=== PATIENT | female | born 1980 | race Two or more races ===

== ENCOUNTER 2023-02-17 14:53 | Emergency (ER) | payer MEDICARE, MEDICAID ==
[~2023-02-17] VITALS: Ht 162.6 cm; Wt 92.7 kg
[2023-02-17 15:46] LABS: Basophils # (auto) 0.1 10 ^3/uL (0-0.2); Basophils % (auto) 0.9 % (0.0-2.0); Eosinophils # (auto) 0.1 10 ^3/uL (0-0.8); Eosinophils % (auto) 1.8 % (0.0-7.0); Hematocrit 28.7 % (36.0-46.0); Hemoglobin 9.6 g/dL (12.2-16.2); Lymphocytes # (auto) 1.1 10 ^3/uL (0.4-5.4); Lymphocytes % (auto) 15.1 % (10.0-50.0); Mean Corpuscular Hemoglobin 30.6 pg (28.0-32.0); Mean Corpuscular Hgb Conc. 33.3 g/dL (32.0-36.0); Mean Corpuscular Volume 92.1 fL (80.0-100.0); Monocytes # (auto) 0.7 10 ^3/uL (0-1.3); Monocytes % (auto) 9.1 % (0.0-12.0); Neutrophils # (auto) 5.3 10 ^3/uL (1.6-8.6); Neutrophils % (auto) 73.1 % (37.0-80.0); Nucleated Red Blood Cells % 0.1 %; Red Blood Cells 3.12 10^6/uL (4.0-5.20); Red Cell Distribution Width 14.7 % (11.8-14.3); White Blood Cell 7.2 10^3/uL (4.4-10.8)
[2023-02-17 16:22] LABS: Albumin 3.4 g/dL (3.4-5.0); BUN/Creatinine Ratio 6.6 (10.0-20.0); Calcium 8.1 mg/dL (8.5-10.1); Potassium 4.2 mmol/L (3.5-5.1)
[2023-02-17 16:25] LABS: Bilirubin, Total 0.5 mg/dL (0.2-1.0); Total Protein 7.8 g/dL (6.4-8.2)
[2023-02-17 20:00] VITALS: BP 152/92
[2023-02-17] MEDS ORDERED: HYDROcodone-ACET 5/325MG TAB PO ONE (20:15)
== END 2023-02-17 20:26 | disposition home or self-care (01) ==
LOC: EDBD 14:53 → ER 14:53
DX: G40.909 Epilepsy, unspecified, not intractable, without status epilepticus (principal); I12.0 Hypertensive chronic kidney disease with stage 5 chronic kidney disease or end stage renal disease; N18.6 End stage renal disease; Z99.2 Dependence on renal dialysis; Z86.73 Personal history of transient ischemic attack (TIA), and cerebral infarction without residual deficits; Z98.890 Other specified postprocedural states; Z98.51 Tubal ligation status
CPT/HCPCS: 36415; 70450; 80053; 83735; 84484; 85025; 93005; 96374; 99285; J1953; J7060

== ENCOUNTER 2025-03-30 18:59 | Inpatient (IN) | payer OTHER, MEDICAID ==
[~2025-03-30] VITALS: Ht 162.6 cm; Wt 95.5 kg
[~2025-03-30 18:59] MED LIST: ALBUAER3 IN; ASPI81CH59 PO; CALC667C PO; CLON0.1D13 TD; HYDR-4902 PO; HYDR100T10 PO; LORA-1121 PO; MIDO10TA3 PO; SILD30SU PO
--- NOTE | 2025-03-30 19:11 | ED.PDOC ---
History of Present Illness HPI Comments 44-year-old female came to ER via EMS for rashes. Patient has history of hypertension, congestive heart failure, CVA, ESRD on dialysis every Thursday. Patient was at the dialysis center earlier, when nurses noted a rash at her lower abdominal area. Patient was sent here to rule out cellulitis. States rashes started this morning. Denies any fever. Chief Complaint: Rash Time Seen by MD: 19:10 Primary Care Provider: SHIRLENE Reviewed Notes: Oil Field Laborer Notes Allergies: Coded Allergies: Methylprednisolone (Verified Allergy, Unknown, 04/16/23) Home Meds Active Scripts Clindamycin Hcl (Cleocin) 300 Mg Cap, 300 MG PO TID for 5 Days, #15 CAP Prov:CHRISTELLE VILLANUEVA MD 04/03/25 Albuterol Sulfate (VENTOLIN MDI) 90 Mcg Ih, 90 MCG IN Q4HR PRN, #1 INH Prov:ENEDINA FRY MD 03/10/24 Midodrine Hcl (Midodrine Hcl) 10 Mg Tab, 10 MG PO BID, #60 TAB Prov:ENEDINA FRY MD 03/10/24 Sildenafil Citrate (Pulmonary (Revatio) 10 Mg/Ml Arielle, 20 MG PO DAILY, #60 ML Prov:ENEDINA FRY MD 03/10/24 Lorazepam (ATIVAN TABLET) 0.5 Mg Tb, 1 TAB PO DAILY, #30 TAB Prov:ENEDINA FRY MD 03/10/24 Reported Medications Clonidine Hcl ([id number]-0 PATCH) 0.1 Mg/24 Hr Ph, 0.1 MG TD PRN for SBP>150, PATCH 02/29/24 Aspirin (Aspirin Low Dose) 81 Mg Chw, 81 MG PO DAILY, TAB.CHEW 02/29/24 Hydralazine Hcl (Hydralazine Hcl) 100 Mg Tab, 1 TAB PO DAILY, #90 TAB 5 Refills 05/30/22 Calcium Acetate (Phosphate Bin (Calcium Acetate) 667 Mg Cap, 1334 MG PO TIDWM, MG 05/30/22 Hydrocodone-Acetaminophen (Hydrocodone Bitartrate/AC 5-325 mg) 1 Tab Tab, 1 TAB PO BIDPRN PRN for PAIN 03/19/22 Information Source: Patient, Emergency Med Personnel Mode of Arrival: EMS Severity: Moderate Timing: Hours Duration: Since onset Review of Systems REVIEW OF SYSTEMS: No fever, no chills, or fatigue HEENT: No sore throat, no earache, no congestion, no neck pain. Cardiac: No chest pain. No palpitations. Lungs: No shortness of breath, no cough. GI: No nausea, no vomiting, no diarrhea, no constipation, no abdominal pain : No dysuria, frequency, or urgency. No hematuria. Musculoskeletal: No joint pain , no joint swelling, no extremity edema. Skin: (+) rash, no itching. Neuro: No headache, no dizziness, no weakness Vital Signs Vital Signs Date Time Temp Pulse Resp B/P (MAP) Pulse Ox O2 Delivery O2 Flow Rate FiO2 03/30/25 23:01 64 18 95 Room Air 03/30/25 23: 97.8 119/62 (81) 97.8 Physical Exam General: Awake, alert and oriented. No acute distress. Skin: Lower abdominal wall warm, erythematous with skin irritation. No palpable abscess or draining lesion. HEENT: The head is normocephalic and atraumatic. Conjunctivae are clear without exudates or hemorrhage. Sclera is non-icteric. EOM are intact. No signs of nystagmus. Eyelids are normal in appearance without swelling or lesions. Oral mucosa is pink and moist Neck: The neck is supple with normal range of motion. No JVD. Cardiac: Heart rate and rhythm are normal. No murmurs, gallops, or rubs are au scultated. Respiratory: No signs of respiratory distress. Lung sounds are clear in all lobes bilaterally without rales, rhonchi, or wheezes. Abdominal: Abdomen is soft, non-tender without distention. Bowel sounds are present and normoactive in all four quadrants. Extremities: Upper and lower extremities are atraumatic in appearance without deformity or edema. Neurological: The patient is awake, alert and oriented to person, place, and time with normal speech. Speech is clear. There is no facial asymmetry. Psychiatric: Appropriate mood and affect. Good judgement and insight. No visual or auditory hallucinations. Past Medical History PAST MEDICAL HISTORY: CHF, CVA, ESRD, HTN, Liver, Seizures Surgical History: BTL, Surgical History (Other): Dialysis every Thursday STORE DIRECTOR History: Denies all STORE DIRECTOR Hx Family History Family History: Reviewed,noncontributory to illness Social History Smoker: Non-Smoker Alcohol: Denies ETOH Use Drugs: Denies Drug Use Lives In: Home Was a procedure done? Was a procedure done?: No Differential Dx Considerations may include: Anemia, electrolyte imbalance, congestive heart failure, end-stage renal disease, cellulitis, rash, sepsis, bacteremia, other X-Ray, Labs, Meds, VS Vital Signs Date Time Temp Pulse Resp B/P (MAP) Pulse Ox O2 Delivery O2 Flow Rate FiO2 03/30/25 23:01 64 18 95 Room Air 03/30/25 23:01 97.8 64 18 119/62 (81) 95 97.8 03/30/25 19:04 99.5 70 16 122/71 (88) 95 99.5 Lab Test 03/30/25 19:55 03/30/25 19:22 Range/Units POC Glucose 112 H 70-106 mg/dl White Blood Count 10.4 4.4-10.8 10^3/uL Red Blood Count 4.16 4.0-5.20 10^6/uL Hemoglobin 11.9 L 12.2-16.2 g/dL Hematocrit 36.2 36.0-46.0 % Mean Corpuscular Volume 87.0 80.0-100.0 fL Mean Corpuscular Hemoglobin 28.6 28.0-32.0 pg Mean Corpuscular Hemoglobin Concent 32.9 32.0-36.0 g/dL Red Cell Distribution Width 17.8 H 11.8-14.3 % Platelet Count 147 140-450 10^3/uL Mean Platelet Volume 8.3 6.9-10.8 fL Neutrophils (%) (Auto) 89.5 H 37.0-80.0 % Lymphocytes (%) (Auto) 4.7 L 10.0-50.0 % Monocytes (%) (Auto) 5.5 0.0-12.0 % Eosinophils (%) (Auto) 0.2 0.0-7.0 % Basophils (%) (Auto) 0.1 0.0-2.0 % Neutrophils # (Auto) 9.4 H 1.6-8.6 10 ^3/uL Lymphocytes # (Auto) 0.5 0.4-5.4 10 ^3/uL Monocytes # (Auto) 0.6 0-1.3 10 ^3/uL Eosinophils # (Auto) 0 0-0.8 10 ^3/uL Basophils # (Auto) 0 0-0.2 10 ^3/uL Nucleated Red Blood Cells 0.0 % Sodium Level 141 136-145 mmol/L Potassium Level 3.7 3.5-5.1 mmol/L Chloride Level 100 98-107 mmol/L Carbon Dioxide Level 28 20-31 mmol/L Anion Gap 13 5-15 Blood Urea Nitrogen 28 H 9-23 mg/dL Creatinine 4.89 H 0.550-1.02 mg/dL Glomerular Filtration Rate Calc 11 >90 mL/min BUN/Creatinine Ratio 5.7 L 10.0-20.0 Serum Glucose 119 H 74-106 mg/dL Lactic Acid Level 2.0 0.4-2.0 mmol/L Calcium Level 7.7 L 8.7-10.4 mg/dL Total Bilirubin 0.5 0.2-1.0 mg/dL Aspartate Amino Transferase (AST) 23 0-34 U/L Alanine Aminotransferase (ALT) 11 7-40 U/L Alkaline Phosphatase 149 H 46-116 U/L Total Protein 6.1 5.7-8.2 g/dL Albumin 3.7 3.2-4.8 g/dL Microbiology Date/Time Source Procedure Growth Status 03/30/25 19:22 Blood Blood Culture - Final NO GROWTH AFTER 5 DAYS OF INCUBATION. Complete 03/30/25 19:10 Blood Blood Culture - Final NO GROWTH AFTER 5 DAYS OF INCUBATION. Complete Time of 1ST Reevaluation: 19:06 Reevaluation 1ST: Unchanged Patient Education/Counseling: Other (Need for admission) Family Education/Counseling: No Family Present Sepsis Sepsis Reasesment Focused Exam Orders: Laboratory Tests 03/30/25 19:22: Lactic Acid Level 2.0 Departure 1 Departure Time of Disposition: 20:04 Impression: Primary Impression: Cellulitis Additional Impressions: End stage renal disease on dialysis Liver cirrhosis History of CHF (congestive heart failure) Disposition: ADMITTED INPATIENT Condition: Stable e-Prescriptions Clindamycin Hcl (Cleocin) 300 Mg Cap 300 MG PO TID for 5 Days, #15 CAP Prov: CHRISTELLE VILLANUEVA MD 04/03/25 Comments 44-year-old female with a immunocompromise state secondary to cirrhosis and end- stage renal disease on dialysis. We will admit for IV antibiotics for treatment of cellulitis. Extensive evaluation was performed in attempt to identify or rule out: (See differential diagnosis section) The following tests were ordered, and results were reviewed by me and discussed with patient: (See diagnostic results section) The following test were independently interpreted by me: EKG I reviewed and agreed with the following test results read by other providers: N/A I reviewed the following notes from the pt's past medical encounters: Encounter 2023 for CHF Additional information was gathered from interviewing the following independent historians: EMS personnel Discussion of management or test interpretation with external physician/other qualified health resident care provider: N/A Addressed one or more chronic illnesses with severe exacerbation, progression, or side effects of treatment: Liver cirrhosis, end-stage renal disease on dialysis an acute or chronic illness that poses a threat to life or bodily function: Cellulitis Decision regarding hospitalization or escalation of hospital level of care: Risk and benefits of admission for further treatment of patient's condition was considered. Due to patient's current clinical condition, high risk of decline and poor outcome if discharged and need for further inpatient management and monitoring, patient will be admitted to the hospital. Discussed with patient. Drug therapy requiring intensive monitoring for toxicity: N/A Parenteral controlled substances: N/A Decision regarding elective major surgery with identified patient or procedure risk factors: N/A Decision regarding emergency major surgery: N/A Decision not to resuscitate or to de-escalate care because of poor prognosis: N/A Diagnosis or treatment significantly limited by social determinants of health: N/A Critical Care Note Critical Care Time?: No Stability Stability form required: No Heart Score Heart Score: Heart Score Response (Comments) Value History N/A 0 EKG N/A 0 Age N/A 0 Risk Factors N/A 0 Troponin N/A 0 Total 0 I personally scribed for PHUC ARITA MD ([email or web address]) on 03/30/25 at 19:10. Electronically submitted by Dandre Chacon ([email or web address]). PHUC ARITA MD Mar 30, 2025 19:10
[2025-03-30 19:37] LABS: Basophils # (auto) 0 10 ^3/uL (0-0.2); Basophils % (auto) 0.1 % (0.0-2.0); Eosinophils # (auto) 0 10 ^3/uL (0-0.8); Eosinophils % (auto) 0.2 % (0.0-7.0); Hematocrit 36.2 % (36.0-46.0); Hemoglobin 11.9 g/dL (12.2-16.2); Lymphocytes # (auto) 0.5 10 ^3/uL (0.4-5.4); Lymphocytes % (auto) 4.7 % (10.0-50.0); Mean Corpuscular Hemoglobin 28.6 pg (28.0-32.0); Mean Corpuscular Hgb Conc. 32.9 g/dL (32.0-36.0); Monocytes # (auto) 0.6 10 ^3/uL (0-1.3); Monocytes % (auto) 5.5 % (0.0-12.0); Neutrophils # (auto) 9.4 10 ^3/uL (1.6-8.6); Neutrophils % (auto) 89.5 % (37.0-80.0); Platelet Count (auto) 147 10^3/uL (140-450); Red Blood Cells 4.16 10^6/uL (4.0-5.20); Red Cell Distribution Width 17.8 % (11.8-14.3); White Blood Cell 10.4 10^3/uL (4.4-10.8)
[2025-03-30 19:55] LABS: Alanine Aminotransferase 11 U/L (7-40); Albumin 3.7 g/dL (3.2-4.8); Anion Gap 13 (5-15); Aspartate Aminotransferase 23 U/L (0-34); BUN/Creatinine Ratio 5.7 (10.0-20.0); Bilirubin, Total 0.5 mg/dL (0.2-1.0); Carbon Dioxide 28 mmol/L (20-31); Chloride 100 mmol/L (98-107); Potassium 3.7 mmol/L (3.5-5.1); Sodium 141 mmol/L (136-145); Total Protein 6.1 g/dL (5.7-8.2)
[2025-03-30 20:07] LABS: Alkaline Phosphatase 149 U/L (46-116); Blood Urea Nitrogen 28 mg/dL (9-23); Calcium 7.7 mg/dL (8.7-10.4); Glucose 119 mg/dL (74-106)
[2025-03-30] MEDS ORDERED: DOCUSATE SOD 100 MG CAP PO PRN (22:45)
[2025-03-30] MEDS ORDERED: VANCOMYCIN PER PHARMACY 0 MG IV SCH (22:45)
[2025-03-30] MEDS ORDERED: IBUPROFEN 600 MG TAB PO PRN (22:45)
[2025-03-30] MEDS ORDERED: hydrALAZINE HCL 20 MG/ML VL IV PRN (22:45)
[2025-03-30] MEDS ORDERED: LORazepam 2MG/ML-1ML VIAL IV PRN (22:45)
[2025-03-30] MEDS ORDERED: ONDANSETRON HCL 4 MG/2 ML VIAL IV PRN (22:45)
--- NOTE | 2025-03-30 23:47 | DVHHP2 ---
History of Present Illness Reason for Visit: End stage renal disease on dialysis History of Present Illness The patient is a 44-year-old female with past medical history end-stage renal disease on hemodialysis Thursday and Saturdays, CHF, CVA, hypertension, liver disease, and seizures who presented to [facility] ED for evaluation of abdominal wall rashes. Patient was at the dialysis center earlier, when nurses noted a rash at her lower abdominal area and was sent here to ED rule out cellulitis. Patient was seen and evaluated in the ED, laboratory data shows WBC 10.4, platelets 147, sodium 141, potassium 3.7, BUN 28, creatinine 4.89, glucose 119, calcium 7.7, blood pressure 122/71, heart rate 70, temperature 99.5 F, O2 saturation 96% on room air. Patient was started on IV antibiotic regimen vancomycin, given IV calcium replacement, please see medication orders section in the computer. On my assessment, patient denied chest pain, no headache, no dizziness, no shortness of breaths, no nausea, no vomiting, no fever, no chills. Patient was admitted for further evaluation and medical management. Past Medical History CHF, CVA, ESRD, HTN, Liver, Seizures Past Surgical History BTL, , Dialysis access LUE every Thursday Family History Reviewed, noncontributory to the management of this case. Past Social History The patient lives at home, denies smoking, alcohol or illicit drugs abuse. Review of Systems Constitutional: Yes: Weakness; No: Fever, Chills, Sweats, Malaise, Other Eyes: No: Pain, Vision change, Conjunctivae inflammation, Eyelid inflammation, Other, Redness ENT: No: Ear pain, Ear discharge, Nose pain, Nose discharge, Nose congestion, Mouth pain, Mouth swelling, Throat pain, Throat swelling, Other Respiratory: No: Cough, Dry, Shortness of breath, SOB with excertion, Wheezing, Hemoptysis, Pleuritic Pain, Sputum, Wheezing, Other Cardiovascular: No: Chest Pain, Palpitations, Orthopnea, Paroxysmal Noc. Dyspnea, Edema, Lt Headedness, Other Gastrointestinal: No: Nausea, Vomiting, Abdominal Pain, Diarrhea, Constipation, Melena, Hematochezia, Other Genitourinary: No Dysuria, No Frequency, No Incontinence, No Hematuria, No Retention; Other (Left upper extremity AV shunt) Musculoskeletal: No: other, neck pain, shoulder pain, arm pain, back pain, hand pain, leg pain, foot pain Skin: Rash (Lower abdominal wall); No: Lesions, Jaundice, Bruising, Other Neurological: No: Weakness, Numbness, Incoordination, Change in speech, Confusion, Seizures, Other Allergies: Coded Allergies: Methylprednisolone (Verified Allergy, Unknown, 04/16/23) Medications Current Medications Medications Dose Ordered Sig/Elidia Route Start Time Stop Time Status Last Admin Dose Admin Hydralazine HCl 10 mg Q6HP PRN IV 03/30/25 22:45 Aspirin 81 mg DAILY PO 03/31/25 10:00 Lorazepam 0.5 mg Q8HP PRN IV 03/30/25 22:45 Metoprolol Tartrate 12.5 mg BID PO 03/31/25 10:00 Multivit/Ca Carb/ B Cmplx/FA/Prenat 1 tab DAILY PO 03/31/25 10:00 Sevelamer HCl 800 mg TIDWM PO 03/31/25 08:00 Calcium Acetate 667 mg TIDWMEALS PO 03/31/25 08:00 Vancomycin HCl 0 ml @ 0 mls/hr UD IV 03/30/25 22:45 UNV Sodium Chloride 10 ml Q8HR IV 03/31/25 06:00 Acetaminophen/ Hydrocodone Bitart 1 tab Q4HP PRN PO 03/30/25 22:45 Ondansetron HCl 4 mg Q4HP PRN IV 03/30/25 22:45 Docusate Sodium 100 mg BIDPRN PRN PO 03/30/25 22:45 Ibuprofen 600 mg Q6HP PRN PO 03/30/25 22:45 Exam Vital Signs Vital Signs Date Time Temp Pulse Resp B/P (MAP) Pulse Ox O2 Delivery O2 Flow Rate FiO2 03/30/25 23:01 64 18 95 Room Air 03/30/25 23:01 97.8 119/62 (81) 97.8 General Appearance: Alert, Oriented X3, Cooperative, No acute distress HEENT: Atraumatic, PERRLA, EOMI, Mucous membr. moist/pink Respiratory: Normal air movement Cardiovascular: Regular rate, Normal S1, Normal S2, No murmurs Abdominal: Normal bowel sounds, Soft, No tenderness, No hepatospenomegaly, No masses Extremities: No clubbing, No cyanosis, No edema, Normal pulses, No tenderness/ swelling Skin: No rashes, No breakdown, No significant lesion Neuro: Normal speech, Normal tone, Sensation intact, Cranial nerves 3-12 NL, Reflexes 2+, Other (Generalized weakness) Psych/Mental Status: Mental status NL, Mood NL Labs/Xrays Labs Test 03/30/25 19:55 03/30/25 19:22 Range/Units POC Glucose 112 H 70-106 mg/dl White Blood Count 10.4 4.4-10.8 10^3/uL Red Blood Count 4.16 4.0-5.20 10^6/uL Hemoglobin 11.9 L 12.2-16.2 g/dL Hematocrit 36.2 36.0-46.0 % Mean Corpuscular Volume 87.0 80.0-100.0 fL Mean Corpuscular Hemoglobin 28.6 28.0-32.0 pg Mean Corpuscular Hemoglobin Concent 32.9 32.0-36.0 g/dL Red Cell Distribution Width 17.8 H 11.8-14.3 % Platelet Count 147 140-450 10^3/uL Mean Platelet Volume 8.3 6.9-10.8 fL Neutrophils (%) (Auto) 89.5 H 37.0-80.0 % Lymphocytes (%) (Auto) 4.7 L 10.0-50.0 % Monocytes (%) (Auto) 5.5 0.0-12.0 % Eosinophils (%) (Auto) 0.2 0.0-7.0 % Basophils (%) (Auto) 0.1 0.0-2.0 % Neutrophils # (Auto) 9.4 H 1.6-8.6 10 ^3/uL Lymphocytes # (Auto) 0.5 0.4-5.4 10 ^3/uL Monocytes # (Auto) 0.6 0-1.3 10 ^3/uL Eosinophils # (Auto) 0 0-0.8 10 ^3/uL Basophils # (Auto) 0 0-0.2 10 ^3/uL Nucleated Red Blood Cells 0.0 % Sodium Level 141 136-145 mmol/L Potassium Level 3.7 3.5-5.1 mmol/L Chloride Level 100 98-107 mmol/L Carbon Dioxide Level 28 20-31 mmol/L Anion Gap 13 5-15 Blood Urea Nitrogen 28 H 9-23 mg/dL Creatinine 4.89 H 0.550-1.02 mg/dL Glomerular Filtration Rate Calc 11 >90 mL/min BUN/Creatinine Ratio 5.7 L 10.0-20.0 Serum Glucose 119 H 74-106 mg/dL Lactic Acid Level 2.0 0.4-2.0 mmol/L Calcium Level 7.7 L 8.7-10.4 mg/dL Total Bilirubin 0.5 0.2-1.0 mg/dL Aspartate Amino Transferase (AST) 23 0-34 U/L Alanine Aminotransferase (ALT) 11 7-40 U/L Alkaline Phosphatase 149 H 46-116 U/L Total Protein 6.1 5.7-8.2 g/dL Albumin 3.7 3.2-4.8 g/dL Assessment/Plan Assessment/Plan Cellulitis of abdominal wall Liver cirrhosis Hypocalcemia Generalized weakness End stage renal disease on dialysis Plan 1. Admit to telemetry unit 2. Breathing treatment 3. Pain control management 4. IV antibiotic management 5. Management of fluids and electrolytes 6. Consultation for Nephrology 7. Diagnostic test chest x-ray 8. DVT prophylaxis-on aspirin 9. Repeat labs CBC, CMP in a.m. 10. Home medication reviewed and reconciled 11. Continue with current medical management 12. Treatment plan discussed with patient and RN. Patient verbalized understanding. Plan discussed with: Patient, Other (RN) My Orders Orders - LEANDRA MCDONALD DNP Procedure Category Date Status Time Hydralazine Injection PHA 03/30/25 In Process (Apresoline Inject 22:45 Aspirin Tablet PHA 03/31/25 In Process 10:00 Lorazepam 2mg/Ml Inj PHA 03/30/25 In Process (Ativan Inj) 22:45 Metoprolol Tartrate PHA 03/31/25 In Process Tablet (Lopressor Ta 10:00 B-Complex W/ C & PHA 03/31/25 In Process Folic Tablet 10:00 Sevelamer (Renagel) PHA 03/31/25 In Process 08:00 Calcium Acetate PHA 03/31/25 In Process Capsule (Phoslo 08:00 Vancomycin Per PHA 03/30/25 Pending Pharmacy 22:45 *[facility] CONS 03/30/25 Transmitted [place] 22:44 Allergies АЛЕКСАНДР 03/30/25 In Process 22:44 Code Status CODE 03/30/25 Transmitted 22:44 Renal DIET 03/31/25 Transmitted Standard(2gna,3gk,Lopho) Breakfast Sodium Chloride Lock PHA 03/31/25 In Process (Saline Lock Ns) 06:00 Oxygen Per Hour RT 03/30/25 Transmitted 22:44 Hydrocodone-Acet PHA 03/30/25 In Process 5/325mg Tab ([place] 22:45 Ondansetron Hcl PHA 03/30/25 In Process (Zofran) 22:45 Docusate Sodium PHA 03/30/25 In Process Capsule (Colace 22:45 Complete Blood Count LAB 03/31/25 Verified 04:00 Comprehensive LAB 03/31/25 Verified Metabolic Panel 04:00 Condition: Serious АЛЕКСАНДР 03/30/25 In Process 22:44 Bedrest With Bathroom АЛЕКСАНДР 03/30/25 In Process Privileg 22:44 Sequential АЛЕКСАНДР 03/30/25 In Process Compression Device Ibuprofen Tablet PHA 03/30/25 In Process (Motrin Tablet) 22:45 Admit ADMIT 03/30/25 Transmitted 23:46 Nitroglycerin PHA 03/31/25 Transmitted Sublingual (Ntrostat 00:00 Morphine Sulfate PHA 03/31/25 Transmitted Injection 00:00 Notify Md Of Changes АЛЕКСАНДР 03/30/25 Transmitted From Base 23:46 Business Support Professional For [facility] 03/30/25 Transmitted 24 Hours 23:46 Emergency Dysrhythmia [facility] 03/30/25 Transmitted Protocol 23:46 Rhythm Strips Once [facility] 03/30/25 Transmitted Every Shift 23:46 Oxygen By Nasal RT 03/30/25 Transmitted Cannula 23:46 Problem List: (1) Cellulitis of abdominal wall (2) Liver cirrhosis (3) Hypocalcemia (4) Generalized weakness (5) End-stage renal disease on hemodialysis Date of Service: Mar 30, 2025 Billing Provider: LEANDRA MCDONALD DNP Common Visit Codes: 58248-[id number] INP/OBS CARE (HIGH) LEANDRA MCDONALD DNP Mar 30, 2025 23:47
[2025-03-31] VITALS (9 sets, daily range): BP systolic 105–119; BP diastolic 52–72; PULSE 57–65; RESP 17–20; TEMP 97.1–98.5; O2SAT 95–97
[2025-03-31] MEDS ORDERED: MORPHINE SULFATE INJ 2 MG/ml SYRG IV PRN
[2025-03-31] MEDS ORDERED: NITROGLYCERIN 0.4 MG SL TAB SL PRN
[2025-03-31] MEDS: SODIUM CHLOR 0.9% PF (SALINE LOCK) 10ML VIAL/SYR IV SCH (05:08)
[2025-03-31 07:20] LABS: Basophils # (auto) 0 10 ^3/uL (0-0.2); Eosinophils # (auto) 0 10 ^3/uL (0-0.8); Eosinophils % (auto) 0.3 % (0.0-7.0); Hematocrit 33.6 % (36.0-46.0); Hemoglobin 11.3 g/dL (12.2-16.2); Lymphocytes # (auto) 0.7 10 ^3/uL (0.4-5.4); Lymphocytes % (auto) 8.7 % (10.0-50.0); Mean Corpuscular Hemoglobin 29.4 pg (28.0-32.0); Mean Corpuscular Hgb Conc. 33.8 g/dL (32.0-36.0); Mean Corpuscular Volume 87.1 fL (80.0-100.0); Monocytes # (auto) 0.6 10 ^3/uL (0-1.3); Monocytes % (auto) 7.1 % (0.0-12.0); Neutrophils # (auto) 6.8 10 ^3/uL (1.6-8.6); Neutrophils % (auto) 83.9 % (37.0-80.0); Nucleated Red Blood Cells % 0.1 %; Platelet Count (auto) 149 10^3/uL (140-450); Red Blood Cells 3.86 10^6/uL (4.0-5.20); Red Cell Distribution Width 17.8 % (11.8-14.3); White Blood Cell 8.1 10^3/uL (4.4-10.8)
[2025-03-31 07:34] LABS: Albumin 3.5 g/dL (3.2-4.8); Anion Gap 14 (5-15); Aspartate Aminotransferase 18 U/L (<34); BUN/Creatinine Ratio 5.6 (10.0-20.0); Carbon Dioxide 28 mmol/L (20-31); Glucose 85 mg/dL (74-106); Potassium 3.7 mmol/L (3.5-5.1); Sodium 139 mmol/L (136-145); Total Protein 6.1 g/dL (5.7-8.2)
[2025-03-31 07:35] LABS: Bilirubin, Total 0.4 mg/dL (0.2-1.0)
[2025-03-31 07:37] LABS: Alanine Aminotransferase < 9 U/L (7-40); Alkaline Phosphatase 136 U/L (46-116); Blood Urea Nitrogen 32 mg/dL (9-23); Calcium 7.1 mg/dL (8.7-10.4); Chloride 97 mmol/L (98-107)
[2025-03-31] MEDS: B-COMPLEX W/ C & FOLIC ACID(NEPHROVITE TAB) PO SCH (08:50)
[2025-03-31] MEDS: SEVELAMER 800 MG TAB PO SCH (08:50)
[2025-03-31] MEDS: ASPirin 81 mg TAB PO SCH (08:50)
[2025-03-31] MEDS: CALCIUM ACETATE 667 MG CAP PO SCH (08:51)
[2025-03-31] MEDS: METOPROLOL TARTRATE 25 MG TAB PO SCH (08:51)
--- NOTE | 2025-03-31 10:43 | DVHINCON2 ---
Date of service: Mar 31, 2025 Reason for Consultation End-stage renal disease History of Present Illness 44-year-old female with past medical history of end-stage renal disease for hemodialysis patient receives hemodialysis on Saturdays. Patient presented to the hospital sent from dialysis unit due to abdominal cellulitis. Patient recently had a paracentesis due to ascites. Past Medical History End-stage renal disease Hypertension Cirrhosis Allergies: Coded Allergies: Methylprednisolone (Verified Allergy, Unknown, 04/16/23) Home Meds Active Scripts Albuterol Sulfate (VENTOLIN MDI) 90 Mcg Ih, 90 MCG IN Q4HR PRN, #1 INH Prov:ENEDINA FRY MD 03/10/24 Midodrine Hcl (Midodrine Hcl) 10 Mg Tab, 10 MG PO BID, #60 TAB Prov:ENEDINA FRY MD 03/10/24 Sildenafil Citrate (Pulmonary (Revatio) 10 Mg/Ml Arielle, 20 MG PO DAILY, #60 ML Prov:ENEDINA FRY MD 03/10/24 Lorazepam (ATIVAN TABLET) 0.5 Mg Tb, 1 TAB PO DAILY, #30 TAB Prov:ENEDINA FRY MD 03/10/24 Reported Medications Clonidine Hcl ([id number]-MIU-4 PATCH) 0.1 Mg/24 Hr Ph, 0.1 MG TD PRN for SBP>150, PATCH 02/29/24 Aspirin (Aspirin Low Dose) 81 Mg Chw, 81 MG PO DAILY, TAB.CHEW 02/29/24 Hydralazine Hcl (Hydralazine Hcl) 100 Mg Tab, 1 TAB PO DAILY, #90 TAB 5 Refills 05/30/22 Calcium Acetate (Phosphate Bin (Calcium Acetate) 667 Mg Cap, 1334 MG PO TIDWM, MG 05/30/22 Hydrocodone-Acetaminophen (Hydrocodone Bitartrate/AC 5-325 mg) 1 Tab Tab, 1 TAB PO BIDPRN PRN for PAIN 03/19/22 Current Medications Current Medications Medications (Trade) Dose Ordered Sig/Elidia Route PRN Reason Start Time Stop Time Status Last Admin Hydralazine HCl (Apresoline Injection) 10 mg Q6HP PRN IV SBP>150 03/30/25 22:45 Aspirin 81 mg DAILY PO 03/31/25 10:00 03/31/25 08:50 Lorazepam (Ativan Inj) 0.5 mg Q8HP PRN IV ANXIETY 03/30/25 22:45 Metoprolol Tartrate (Lopressor Tablet) 12.5 mg BID PO 03/31/25 10:00 03/31/25 08:51 Multivit/Ca Carb/ B Cmplx/FA/Prenat (Nephro-Myah Tablet) 1 tab DAILY PO 03/31/25 10:00 03/31/25 08:50 Sevelamer HCl (Renagel) 800 mg TIDWM PO 03/31/25 08:00 03/31/25 08:50 Calcium Acetate (Phoslo Capsule) 667 mg TIDWMEALS PO 03/31/25 08:00 03/31/25 08:51 Vancomycin HCl 0 ml @ 0 mls/hr UD IV 03/30/25 22:45 Sodium Chloride (Saline Lock Ns) 10 ml Q8HR IV 03/31/25 06:00 03/31/25 05:08 Acetaminophen/ Hydrocodone Bitart (Index 5/325MG Tab) 1 tab Q4HP PRN PO MODERATE PAIN (4-6 PAIN SCALE) 03/30/25 22:45 Ondansetron HCl (Zofran) 4 mg Q4HP PRN IV NAUSEA / VOMITING 03/30/25 22:45 Docusate Sodium (Colace Capsule) 100 mg BIDPRN PRN PO FOR CONSTIPATION 03/30/25 22:45 Ibuprofen (Motrin Tablet) 600 mg Q6HP PRN PO PAIN SCALE 1-3 OR TEMP>100.4 03/30/25 22:45 Nitroglycerin (Ntrostat Sublingual) 0.4 mg Q5MINP PRN SL FOR CHEST PAIN 03/31/25 00:00 Morphine Sulfate 2 mg Q30M PRN IV FOR CHEST PAIN 03/31/25 00:00 Family History: FH: breast cancer Grandmother H&P Exam Vital Signs/I&O Vital Sign Date Time Temp Pulse Resp B/P (MAP) Pulse Ox O2 Delivery O2 Flow Rate FiO2 03/31/25 09:08 98.4 58 17 116/65 (82) 96 98.4 03/31/25 01:38 Room Air* 0 21 Intake and Output 03/30/25 03/31/25 19:00 07:00 Intake Total 800 ml Balance 800 ml Intake Oral 800 ml # Voids 1 Labs/Diagnostic Data Labs/Diagnostic Data Laboratory Tests Test 03/31/25 04:12 03/30/25 19:55 03/30/25 19:22 Range/Units White Blood Count 8.1 10.4 4.4-10.8 10^3/uL Red Blood Count 3.86 L 4.16 4.0-5.20 10^6/uL Hemoglobin 11.3 L 11.9 L 12.2-16.2 g/dL Hematocrit 33.6 L 36.2 36.0-46.0 % Mean Corpuscular Volume 87.1 87.0 80.0-100.0 fL Mean Corpuscular Hemoglobin 29.4 28.6 28.0-32.0 pg Mean Corpuscular Hemoglobin Concent 33.8 32.9 32.0-36.0 g/dL Red Cell Distribution Width 17.8 H 17.8 H 11.8-14.3 % Platelet Count 149 147 140-450 10^3/uL Mean Platelet Volume 8.8 8.3 6.9-10.8 fL Neutrophils (%) (Auto) 83.9 H 89.5 H 37.0-80.0 % Lymphocytes (%) (Auto) 8.7 L 4.7 L 10.0-50.0 % Monocytes (%) (Auto) 7.1 5.5 0.0-12.0 % Eosinophils (%) (Auto) 0.3 0.2 0.0-7.0 % Basophils (%) (Auto) 0.0 0.1 0.0-2.0 % Neutrophils # (Auto) 6.8 9.4 H 1.6-8.6 10 ^3/uL Lymphocytes # (Auto) 0.7 0.5 0.4-5.4 10 ^3/uL Monocytes # (Auto) 0.6 0.6 0-1.3 10 ^3/uL Eosinophils # (Auto) 0 0 0-0.8 10 ^3/uL Basophils # (Auto) 0 0 0-0.2 10 ^3/uL Nucleated Red Blood Cells 0.1 0.0 % Sodium Level 139 141 136-145 mmol/L Potassium Level 3.7 3.7 3.5-5.1 mmol/L Chloride Level 97 L 100 98-107 mmol/L Carbon Dioxide Level 28 28 20-31 mmol/L Anion Gap 14 13 5-15 Blood Urea Nitrogen 32 H 28 H 9-23 mg/dL Creatinine 5.75 H 4.89 H 0.550-1.02 mg/dL Glomerular Filtration Rate Calc 9 11 >90 mL/min BUN/Creatinine Ratio 5.6 L 5.7 L 10.0-20.0 Serum Glucose 85 119 H 74-106 mg/dL Calcium Level 7.1 L 7.7 L 8.7-10.4 mg/dL Total Bilirubin 0.4 0.5 0.2-1.0 mg/dL Aspartate Amino Transferase (AST) 18 23 0-34 U/L Alanine Aminotransferase (ALT) < 9 11 7-40 U/L Alkaline Phosphatase 136 H 149 H 46-116 U/L B-Type Natriuretic Peptide 815.78 0-100 pg/mL Total Protein 6.1 6.1 5.7-8.2 g/dL Albumin 3.5 3.7 3.2-4.8 g/dL POC Glucose 112 H 70-106 mg/dl Lactic Acid Level 2.0 0.4-2.0 mmol/L Assessment 44-year-old female with past medical history of end-stage renal disease on hemodialysis, and cirrhosis patient was sent to the hospital due to abdominal cellulitis. End-stage renal disease on hemodialysis Cellulitis Ascites Hemodialysis as per schedule next treatment on Thursday Resume home medications Treatment of cellulitis as per primary medical team , currently on vancomycin recommend regularly scheduled trough levels Plan discussed with: Patient JESSIE ZAYAS MD Mar 31, 2025 10:43
[2025-03-31] MEDS: VANCOMYCIN 1.25GM/250ML 250 ML IV ONE (11:01)
--- NOTE | 2025-03-31 16:35 | DVHPN2 ---
Subjective 44 year old female with ESRD on HD came due to swelling and pain in the lower abdomen She had dialysis yesterday Changes from previous H/P or p: Changes Eyes: No Pain, No Vision change, No Conjunctivae inflammation, No Eyelid inflammation, No Other, No Redness ENT: No Ear pain, No Ear discharge, No Nose pain, No Nose discharge, No Nose congestion, No Mouth pain, No Mouth swelling, No Throat pain, No Throat swelling, No Other Cardiovascular: No Chest Pain, No Palpitations, No Orthopnea, No Paroxysmal Noc. Dyspnea, No Edema, No Lt Headedness, No Other Respiratory: No Cough, No Dry, No Shortness of breath, No SOB with excertion, No Wheezing, No Hemoptysis, No Pleuritic Pain, No Sputum, No Other Gastrointestinal: No Nausea, No Vomiting, No Abdominal Pain, No Diarrhea, No Constipation, No Melena, No Hematochezia, No Other Genitourinary: No Dysuria, No Frequency, No Incontinence, No Hematuria, No Retention; Other (Left upper extremity AV shunt) Musculoskeletal: No other, No neck pain, No shoulder pain, No arm pain, No back pain, No hand pain, No leg pain, No foot pain Skin: Rash (Lower abdominal wall); No Lesions, No Jaundice, No Bruising, No Other Objective Vitals Vital Signs Date Time Temp Pulse Resp B/P (MAP) Pulse Ox O2 Delivery O2 Flow Rate FiO2 03/31/25 14:53 57 17 116/52 (73) 96 03/31/25 09:08 98.4 98.4 03/31/25 08:00 Room Air* 0 21 Intake/Output Intake and Output 03/31/25 07:00 Intake Total 800 ml Balance 800 ml Intake Oral 800 ml # Voids 1 General Appearance: Alert, Oriented X3, Cooperative, No acute distress Lungs: Clear to auscultation Cardiovascular: Regular rate, Normal S1, Normal S2 Abdomen: Normal bowel sounds, Soft, No tenderness Extremities: No edema Medications Current Medications Medications Dose Ordered Sig/Elidia Route Start Time Stop Time Status Last Admin Dose Admin Hydralazine HCl 10 mg Q6HP PRN IV 03/30/25 22:45 Aspirin 81 mg DAILY PO 03/31/25 10:00 03/31/25 08:50 81 MG Lorazepam 0.5 mg Q8HP PRN IV 03/30/25 22:45 Metoprolol Tartrate 12.5 mg BID PO 03/31/25 10:00 03/31/25 08:51 12.5 MG Multivit/Ca Carb/ B Cmplx/FA/Prenat 1 tab DAILY PO 03/31/25 10:00 03/31/25 08:50 1 TAB Sevelamer HCl 800 mg TIDWM PO 03/31/25 08:00 03/31/25 13:25 800 MG Calcium Acetate 667 mg TIDWMEALS PO 03/31/25 08:00 03/31/25 13:25 667 MG Vancomycin HCl 0 ml @ 0 mls/hr UD IV 03/30/25 22:45 Sodium Chloride 10 ml Q8HR IV 03/31/25 06:00 03/31/25 13:31 10 ML Acetaminophen/ Hydrocodone Bitart 1 tab Q4HP PRN PO 03/30/25 22:45 Ondansetron HCl 4 mg Q4HP PRN IV 03/30/25 22:45 Docusate Sodium 100 mg BIDPRN PRN PO 03/30/25 22:45 Ibuprofen 600 mg Q6HP PRN PO 03/30/25 22:45 Nitroglycerin 0.4 mg Q5MINP PRN SL 03/31/25 00:00 Morphine Sulfate 2 mg Q30M PRN IV 03/31/25 00:00 Laboratory Results Laboratory Tests 03/31/25 04:12 Chemistry Test 03/30/25 19:22 03/31/25 04:12 Albumin 3.7 g/dL (3.2-4.8) 3.5 g/dL (3.2-4.8) Calcium Level 7.7 mg/dL (8.7-10.4) L 7.1 mg/dL (8.7-10.4) L Total Protein 6.1 g/dL (5.7-8.2) 6.1 g/dL (5.7-8.2) Cardiac Markers Test 03/31/25 04:12 B-Type Natriuretic Peptide 815.78 pg/mL (0-100) LFT Test 03/30/25 19:22 03/31/25 04:12 Alanine Aminotransferase (ALT) 11 U/L (7-40) < 9 U/L (7-40) Alkaline Phosphatase 149 U/L (46-116) H 136 U/L (46-116) H Aspartate Amino Transferase (AST) 23 U/L (0-34) 18 U/L (<34) Total Bilirubin 0.5 mg/dL (0.2-1.0) 0.4 mg/dL (0.2-1.0) Microbiology Microbiology Date/Time Source Procedure Growth Status 03/31/25 04:50 Nose MRSA Screen - Final Complete Assessment/Plan Assessment/Plan Abdominal wall cellulitis ESRD Ascites Liver cirrhosis Hypocalcemia Weakness PLAN: Continue Vancomycin Nephrology consult HD per nephrology Full code Advance directives discussed x 20 minutes Plan discussed with: Patient Date of Service: Mar 31, 2025 Billing Provider: CHRISTELLE VILLANUEVA MD Common Visit Codes: [id number] INP/OBS CARE(HIGH) Secondary Visit Codes: [id number] CARE PLAN 30 MINUTES CHRISTELLE VILLANUEVA MD Mar 31, 2025 16:35
[2025-03-31] MEDS: HYDROcodone-ACET 5/325MG TAB PO PRN (16:48)
[2025-04-01] VITALS (8 sets, daily range): BP systolic 102–125; BP diastolic 57–73; PULSE 50–64; RESP 16–22; TEMP 97.2–98.6; O2SAT 93–100
[2025-04-01 06:37] LABS: Basophils # (auto) 0.1 10 ^3/uL (0-0.2); Basophils % (auto) 0.9 % (0.0-2.0); Eosinophils # (auto) 0.1 10 ^3/uL (0-0.8); Eosinophils % (auto) 2.2 % (0.0-7.0); Hematocrit 32.7 % (36.0-46.0); Hemoglobin 10.8 g/dL (12.2-16.2); Lymphocytes # (auto) 1.1 10 ^3/uL (0.4-5.4); Lymphocytes % (auto) 18.5 % (10.0-50.0); Mean Corpuscular Hgb Conc. 33.1 g/dL (32.0-36.0); Mean Corpuscular Volume 87.5 fL (80.0-100.0); Monocytes # (auto) 0.7 10 ^3/uL (0-1.3); Monocytes % (auto) 12.1 % (0.0-12.0); Neutrophils # (auto) 3.9 10 ^3/uL (1.6-8.6); Neutrophils % (auto) 66.3 % (37.0-80.0); Nucleated Red Blood Cells % 0.1 %; Platelet Count (auto) 138 10^3/uL (140-450); Red Blood Cells 3.74 10^6/uL (4.0-5.20); Red Cell Distribution Width 17.9 % (11.8-14.3); White Blood Cell 5.9 10^3/uL (4.4-10.8)
[2025-04-01 07:03] LABS: Albumin 3.5 g/dL (3.2-4.8); Anion Gap 16 (5-15); Aspartate Aminotransferase 14 U/L (<34); Carbon Dioxide 24 mmol/L (20-31); Glucose 85 mg/dL (74-106); Magnesium 2.2 mg/dL (1.6-2.6); Potassium 4.3 mmol/L (3.5-5.1); Total Protein 6.1 g/dL (5.7-8.2)
[2025-04-01 07:04] LABS: Chloride 96 mmol/L (98-107); Sodium 136 mmol/L (136-145)
[2025-04-01 07:05] LABS: Alanine Aminotransferase < 9 U/L (7-40); Alkaline Phosphatase 133 U/L (46-116); Bilirubin, Total 0.2 mg/dL (0.2-1.0); Blood Urea Nitrogen 51 mg/dL (9-23); Calcium 7.1 mg/dL (8.7-10.4)
[2025-04-01] MEDS: SODIUM CHL 0.9% 1000 ML BAG XX ONE (07:15)
[2025-04-01 07:37] LABS: % Iron Saturation 14.6 % (15-50)
[2025-04-01] MEDS ORDERED: MEROPENEM 500MG IVPB 50 ML IV ONE (13:00)
[2025-04-01] MEDS: ALBUMIN 25% 100 ML IV ONE (14:15)
--- NOTE | 2025-04-01 14:53 | DVHPN2 ---
Progress Note Date Seen: Apr 01, 2025 Medical Necessity Reason Pt with a Central, PICC or Fol: No Objective vital signs Vital Sign Date Time Temp Pulse Resp B/P (MAP) Pulse Ox O2 Delivery O2 Flow Rate FiO2 04/01/25 12:31 97.5 50 16 121/69 (86) 98 97.5 04/01/25 08:00 Room Air* 0 21 Total Intake and Output 03/31/25 03/31/25 04/01/25 14:59 22:59 06:59 Intake Total 200 ml 1200 ml Balance 200 ml 1200 ml medications Current Medications Medications Dose Ordered Sig/Elidia Route Start Time Stop Time Status Last Admin Dose Admin Hydralazine HCl 10 mg Q6HP PRN IV 03/30/25 22:45 Aspirin 81 mg DAILY PO 03/31/25 10:00 04/01/25 09:08 81 MG Lorazepam 0.5 mg Q8HP PRN IV 03/30/25 22:45 Metoprolol Tartrate 12.5 mg BID PO 03/31/25 10:00 03/31/25 23:04 12.5 MG Multivit/Ca Carb/ B Cmplx/FA/Prenat 1 tab DAILY PO 03/31/25 10:00 04/01/25 09:07 1 TAB Sevelamer HCl 800 mg TIDWM PO 03/31/25 08:00 04/01/25 13:01 800 MG Calcium Acetate 667 mg TIDWMEALS PO 03/31/25 08:00 04/01/25 13:01 667 MG Vancomycin HCl 0 ml @ 0 mls/hr UD IV 03/30/25 22:45 Sodium Chloride 10 ml Q8HR IV 03/31/25 06:00 04/01/25 05:37 10 ML Acetaminophen/ Hydrocodone Bitart 1 tab Q4HP PRN PO 03/30/25 22:45 04/01/25 00:05 1 TAB Ondansetron HCl 4 mg Q4HP PRN IV 03/30/25 22:45 Docusate Sodium 100 mg BIDPRN PRN PO 03/30/25 22:45 Ibuprofen 600 mg Q6HP PRN PO 03/30/25 22:45 Nitroglycerin 0.4 mg Q5MINP PRN SL 03/31/25 00:00 Morphine Sulfate 2 mg Q30M PRN IV 03/31/25 00:00 Meropenem 50 ml @ 17 mls/hr DAILY IV 04/02/25 10:00 Examination: GENERAL:Normal, CVS:Normal, ABDOMEN:Normal, SKIN:Abnormal laboratory and microbiology Laboratory Tests 04/01/25 06:04 Test 04/01/25 06:04 Range/Units Serum Glucose 85 74-106 mg/dL Microbiology Date/Time Source Procedure Growth Status 03/31/25 04:50 Nose MRSA Screen - Final Complete 03/30/25 19:22 Blood Blood Culture - Preliminary NO GROWTH AFTER 24 HOURS OF INCUBATION. Resulted Problem List/Assessment/Plan Problem List/Assessment/Plan 44-year-old female with past medical history of end-stage renal disease on hemodialysis, and cirrhosis patient was sent to the hospital due to abdominal cellulitis. End-stage renal disease on hemodialysis Cellulitis Ascites Hemodialysis today, nurse at bedside Resume home medications Treatment of cellulitis as per primary medical team , currently on vancomycin recommend regularly scheduled trough levels trough level noted today is elevated Plan discussed with: Patient My Orders My Orders Orders - JESSIE ZAAYS MD Procedure Category Date Status Time Hemodialysis Orders ORDERS 04/01/25 Transmitted 07:10 Dialysis Nursing [id number] 04/01/25 In Process Message 07:10 Document Fluid Input [id number] 04/01/25 In Process And Outpu 07:10 Acute Hepatitis Panel LAB 04/01/25 In Process 07:10 Albumin 25% (Albutein) PHA 04/01/25 In Process 14:15 JESSIE ZAYAS MD Apr 01, 2025 14:52
--- NOTE | 2025-04-01 15:19 | DVHPN2 ---
Subjective Better Less abd pain Changes from previous H/P or p: Changes Eyes: No Pain, No Vision change, No Conjunctivae inflammation, No Eyelid inflammation, No Other, No Redness ENT: No Ear pain, No Ear discharge, No Nose pain, No Nose discharge, No Nose congestion, No Mouth pain, No Mouth swelling, No Throat pain, No Throat swelling, No Other Cardiovascular: No Chest Pain, No Palpitations, No Orthopnea, No Paroxysmal Noc. Dyspnea, No Edema, No Lt Headedness, No Other Respiratory: No Cough, No Dry, No Shortness of breath, No SOB with excertion, No Wheezing, No Hemoptysis, No Pleuritic Pain, No Sputum, No Other Gastrointestinal: No Nausea, No Vomiting, No Abdominal Pain, No Diarrhea, No Constipation, No Melena, No Hematochezia, No Other Genitourinary: No Dysuria, No Frequency, No Incontinence, No Hematuria, No Retention; Other (Left upper extremity AV shunt) Musculoskeletal: No other, No neck pain, No shoulder pain, No arm pain, No back pain, No hand pain, No leg pain, No foot pain Skin: Rash (Lower abdominal wall); No Lesions, No Jaundice, No Bruising, No Other Objective Vitals Vital Signs Date Time Temp Pulse Resp B/P (MAP) Pulse Ox O2 Delivery O2 Flow Rate FiO2 04/01/25 12:31 97.5 50 16 121/69 (86) 98 97.5 04/01/25 08:00 Room Air* 0 21 Intake/Output Intake and Output 04/01/25 07:00 Intake Total 1400 ml Balance 1400 ml Intake Oral 1400 ml # Voids 2 # Bowel Movements 2 General Appearance: Alert, Oriented X3, Cooperative, No acute distress Lungs: Clear to auscultation Cardiovascular: Regular rate, Normal S1, Normal S2 Abdomen: Normal bowel sounds, Soft, No tenderness Extremities: No edema Medications Current Medications Medications Dose Ordered Sig/Elidia Route Start Time Stop Time Status Last Admin Dose Admin Hydralazine HCl 10 mg Q6HP PRN IV 03/30/25 22:45 Aspirin 81 mg DAILY PO 03/31/25 10:00 04/01/25 09:08 81 MG Lorazepam 0.5 mg Q8HP PRN IV 03/30/25 22:45 Metoprolol Tartrate 12.5 mg BID PO 03/31/25 10:00 03/31/25 23:04 12.5 MG Multivit/Ca Carb/ B Cmplx/FA/Prenat 1 tab DAILY PO 03/31/25 10:00 04/01/25 09:07 1 TAB Sevelamer HCl 800 mg TIDWM PO 03/31/25 08:00 04/01/25 13:01 800 MG Calcium Acetate 667 mg TIDWMEALS PO 03/31/25 08:00 04/01/25 13:01 667 MG Vancomycin HCl 0 ml @ 0 mls/hr UD IV 03/30/25 22:45 Sodium Chloride 10 ml Q8HR IV 03/31/25 06:00 04/01/25 05:37 10 ML Acetaminophen/ Hydrocodone Bitart 1 tab Q4HP PRN PO 03/30/25 22:45 04/01/25 00:05 1 TAB Ondansetron HCl 4 mg Q4HP PRN IV 03/30/25 22:45 Docusate Sodium 100 mg BIDPRN PRN PO 03/30/25 22:45 Ibuprofen 600 mg Q6HP PRN PO 03/30/25 22:45 Nitroglycerin 0.4 mg Q5MINP PRN SL 03/31/25 00:00 Morphine Sulfate 2 mg Q30M PRN IV 03/31/25 00:00 Meropenem 50 ml @ 17 mls/hr DAILY IV 04/02/25 10:00 Laboratory Results Laboratory Tests 04/01/25 06:04 Chemistry Test 04/01/25 06:04 Albumin 3.5 g/dL (3.2-4.8) Calcium Level 7.1 mg/dL (8.7-10.4) L Magnesium Level 2.2 mg/dL (1.6-2.6) Total Protein 6.1 g/dL (5.7-8.2) LFT Test 04/01/25 06:04 Alanine Aminotransferase (ALT) < 9 U/L (7-40) Alkaline Phosphatase 133 U/L (46-116) H Aspartate Amino Transferase (AST) 14 U/L (<34) Total Bilirubin 0.2 mg/dL (0.2-1.0) Microbiology Microbiology Date/Time Source Procedure Growth Status 03/31/25 04:50 Nose MRSA Screen - Final Complete 03/30/25 19:22 Blood Blood Culture - Preliminary NO GROWTH AFTER 24 HOURS OF INCUBATION. Resulted Assessment/Plan Assessment/Plan Abdominal wall cellulitis ESRD Ascites Liver cirrhosis Hypocalcemia Weakness PLAN: Continue Vancomycin Nephrology consult HD per nephrology Full code Advance directives discussed x 20 minutes 04/01/25: Continue Vanco Add Meropenem HD per nephrology Plan discussed with: Patient My Orders Orders - CHRISTELLE VILLANUEVA MD Procedure Category Date Status Time Meropenem 500mg Ivpb PHA 04/02/25 In Process (Merrem 500mg/Ns) 10:00 Date of Service: Apr 01, 2025 Billing Provider: CHRISTELLE VILLANUEVA MD Common Visit Codes: [id number] INP/OBS CARE(HIGH) CHRISTELLE VILLANUEVA MD Apr 01, 2025 15:19
[2025-04-01] MEDS: MEROPENEM 1GM IVPB 50 ML IV ONE (18:52)
[2025-04-01] MEDS: MEROPENEM 500MG IVPB 50 ML IV ONE (18:54)
[2025-04-02] VITALS (9 sets, daily range): BP systolic 99–125; BP diastolic 51–79; PULSE 6–62; RESP 6–18; TEMP 97.6–98.7; O2SAT 95–98
[2025-04-02 04:44] LABS: Basophils # (auto) 0 10 ^3/uL (0-0.2); Basophils % (auto) 0.9 % (0.0-2.0); Eosinophils # (auto) 0.1 10 ^3/uL (0-0.8); Hematocrit 32.3 % (36.0-46.0); Hemoglobin 10.9 g/dL (12.2-16.2); Lymphocytes # (auto) 0.9 10 ^3/uL (0.4-5.4); Lymphocytes % (auto) 18.3 % (10.0-50.0); Mean Corpuscular Hemoglobin 29.4 pg (28.0-32.0); Mean Corpuscular Hgb Conc. 33.8 g/dL (32.0-36.0); Monocytes # (auto) 0.5 10 ^3/uL (0-1.3); Monocytes % (auto) 10.7 % (0.0-12.0); Neutrophils # (auto) 3.3 10 ^3/uL (1.6-8.6); Neutrophils % (auto) 67.1 % (37.0-80.0); Nucleated Red Blood Cells % 0.1 %; Platelet Count (auto) 157 10^3/uL (140-450); Red Blood Cells 3.71 10^6/uL (4.0-5.20); Red Cell Distribution Width 17.6 % (11.8-14.3); White Blood Cell 4.9 10^3/uL (4.4-10.8)
[2025-04-02] MEDS: MEROPENEM 500MG IVPB 50 ML IV SCH (10:23)
[2025-04-02] MEDS: MEROPENEM 1GM IVPB 50 ML IV ONE (10:23)
--- NOTE | 2025-04-02 12:57 | DVHPN2 ---
Subjective Better Less abd pain Changes from previous H/P or p: Changes Eyes: No Pain, No Vision change, No Conjunctivae inflammation, No Eyelid inflammation, No Other, No Redness ENT: No Ear pain, No Ear discharge, No Nose pain, No Nose discharge, No Nose congestion, No Mouth pain, No Mouth swelling, No Throat pain, No Throat swelling, No Other Cardiovascular: No Chest Pain, No Palpitations, No Orthopnea, No Paroxysmal Noc. Dyspnea, No Edema, No Lt Headedness, No Other Respiratory: No Cough, No Dry, No Shortness of breath, No SOB with excertion, No Wheezing, No Hemoptysis, No Pleuritic Pain, No Sputum, No Other Gastrointestinal: No Nausea, No Vomiting, No Abdominal Pain, No Diarrhea, No Constipation, No Melena, No Hematochezia, No Other Genitourinary: No Dysuria, No Frequency, No Incontinence, No Hematuria, No Retention; Other (Left upper extremity AV shunt) Musculoskeletal: No other, No neck pain, No shoulder pain, No arm pain, No back pain, No hand pain, No leg pain, No foot pain Skin: Rash (Lower abdominal wall); No Lesions, No Jaundice, No Bruising, No Other Objective Vitals Vital Signs Date Time Temp Pulse Resp B/P (MAP) Pulse Ox O2 Delivery O2 Flow Rate FiO2 04/02/25 12:46 97.8 52 16 99/56 (70) 95 97.8 04/02/25 07:38 Room Air* 0 21 Intake/Output Intake and Output 04/02/25 07:00 Intake Total 850 ml Balance 850 ml Intake Oral 800 ml IV Total 50 ml # Voids 2 # Bowel Movements 3 General Appearance: Alert, Oriented X3, Cooperative, No acute distress Lungs: Clear to auscultation Cardiovascular: Regular rate, Normal S1, Normal S2 Abdomen: Normal bowel sounds, Soft, No tenderness Extremities: No edema Medications Current Medications Medications Dose Ordered Sig/Elidia Route Start Time Stop Time Status Last Admin Dose Admin Hydralazine HCl 10 mg Q6HP PRN IV 03/30/25 22:45 Aspirin 81 mg DAILY PO 03/31/25 10:00 04/02/25 10:06 81 MG Lorazepam 0.5 mg Q8HP PRN IV 03/30/25 22:45 Metoprolol Tartrate 12.5 mg BID PO 03/31/25 10:00 04/02/25 10:19 12.5 MG Multivit/Ca Carb/ B Cmplx/FA/Prenat 1 tab DAILY PO 03/31/25 10:00 04/02/25 10:05 1 TAB Sevelamer HCl 800 mg TIDWM PO 03/31/25 08:00 04/02/25 10:05 800 MG Calcium Acetate 667 mg TIDWMEALS PO 03/31/25 08:00 04/02/25 10:05 667 MG Vancomycin HCl 0 ml @ 0 mls/hr UD IV 03/30/25 22:45 Sodium Chloride 10 ml Q8HR IV 03/31/25 06:00 04/02/25 05:45 10 ML Acetaminophen/ Hydrocodone Bitart 1 tab Q4HP PRN PO 03/30/25 22:45 04/01/25 20:57 1 TAB Ondansetron HCl 4 mg Q4HP PRN IV 03/30/25 22:45 Docusate Sodium 100 mg BIDPRN PRN PO 03/30/25 22:45 Ibuprofen 600 mg Q6HP PRN PO 03/30/25 22:45 Nitroglycerin 0.4 mg Q5MINP PRN SL 03/31/25 00:00 Morphine Sulfate 2 mg Q30M PRN IV 03/31/25 00:00 Meropenem 50 ml @ 17 mls/hr DAILY IV 04/02/25 10:00 04/02/25 10:23 17 MLS/HR Laboratory Results Laboratory Tests 04/01/25 06:04 04/02/25 04:07 Microbiology Microbiology Date/Time Source Procedure Growth Status 03/31/25 04:50 Nose MRSA Screen - Final Complete 03/30/25 19:22 Blood Blood Culture - Preliminary NO GROWTH AFTER 48 HOURS OF INCUBATION. Resulted Assessment/Plan Assessment/Plan Abdominal wall cellulitis ESRD Ascites Liver cirrhosis Hypocalcemia Weakness PLAN: Continue Vancomycin Nephrology consult HD per nephrology Full code Advance directives discussed x 20 minutes 04/01/25: Continue Vanco Add Meropenem HD per nephrology 04/02/2025: Continue the current management with IV antibiotics vancomycin and meropenem Hemodialysis per nephrology Monitor the patient closely Discharge planning for tomorrow Plan discussed with: Patient Date of Service: Apr 02, 2025 Billing Provider: CHRISTELLE VILLANUEVA MD Common Visit Codes: [id number] INP/OBS CARE(HIGH) CHRISTELLE VILLANUEVA MD Apr 02, 2025 12:57
[2025-04-03] VITALS (7 sets, daily range): BP systolic 96–121; BP diastolic 52–80; PULSE 44–62; RESP 17–18; TEMP 97.5–98.4; O2SAT 96–99
[2025-04-03 07:20] LABS: Basophils # (auto) 0.1 10 ^3/uL (0-0.2); Basophils % (auto) 2.1 % (0.0-2.0); Eosinophils # (auto) 0.1 10 ^3/uL (0-0.8); Eosinophils % (auto) 2.6 % (0.0-7.0); Hemoglobin 10.8 g/dL (12.2-16.2); Lymphocytes % (auto) 17.5 % (10.0-50.0); Mean Corpuscular Hemoglobin 28.9 pg (28.0-32.0); Mean Corpuscular Hgb Conc. 32.6 g/dL (32.0-36.0); Mean Corpuscular Volume 88.7 fL (80.0-100.0); Monocytes # (auto) 0.6 10 ^3/uL (0-1.3); Monocytes % (auto) 9.8 % (0.0-12.0); Neutrophils # (auto) 3.8 10 ^3/uL (1.6-8.6); Nucleated Red Blood Cells % 0.1 %; Platelet Count (auto) 177 10^3/uL (140-450); Red Blood Cells 3.72 10^6/uL (4.0-5.20); Red Cell Distribution Width 17.8 % (11.8-14.3); White Blood Cell 5.6 10^3/uL (4.4-10.8)
[2025-04-03] MEDS: VANCOMYCIN 1GM/200ML PM 200 ML IV ONE (07:36)
[2025-04-03] MEDS: CALCIUM GLUC 1,000mg/50ml-NS 50 ML IV ONE (07:36)
[2025-04-03 07:53] LABS: Chloride 99 mmol/L (98-107); Potassium 4.8 mmol/L (3.5-5.1)
[2025-04-03 07:54] LABS: Anion Gap 11 (5-15); Carbon Dioxide 25 mmol/L (20-31)
[2025-04-03 07:59] LABS: Glucose 89 mg/dL (74-106)
[2025-04-03 08:00] LABS: BUN/Creatinine Ratio 7.4 (10.0-20.0)
[2025-04-03 08:04] LABS: Blood Urea Nitrogen 56 mg/dL (9-23); Calcium 7.7 mg/dL (8.7-10.4); Sodium 135 mmol/L (136-145)
[2025-04-03 11:14] LABS: Hepatitis A Ab IgM Negative; Hepatitis B Core IgM Negative (Negative); Hepatitis B Surface Antigen Negative (Negative); Hepatitis C Antibody Negative (Negative)
[2025-04-03] MEDS ORDERED: CLIN300C2 PO (15:23)
--- NOTE | 2025-04-03 17:44 | DVHDS2 ---
Discharge Summary Date of Admission Mar 30, 2025 at 23:46 Date of Discharge: Apr 03, 2025 Labs/Diagnostic Data: Laboratory Results Test 04/03/25 06:49 04/01/25 06:04 03/31/25 04:12 03/30/25 19:55 White Blood Count 5.6 10^3/uL (4.4-10.8) Red Blood Count 3.72 10^6/uL (4.0-5.20) Hemoglobin 10.8 g/dL (12.2-16.2) Hematocrit 33.0 % (36.0-46.0) Mean Corpuscular Volume 88.7 fL (80.0-100.0) Mean Corpuscular Hemoglobin 28.9 pg (28.0-32.0) Mean Corpuscular Hemoglobin Concent 32.6 g/dL (32.0-36.0) Red Cell Distribution Width 17.8 % (11.8-14.3) Platelet Count 177 10^3/uL (140-450) Mean Platelet Volume 8.8 fL (6.9-10.8) Neutrophils (%) (Auto) 68.0 % (37.0-80.0) Lymphocytes (%) (Auto) 17.5 % (10.0-50.0) Monocytes (%) (Auto) 9.8 % (0.0-12.0) Eosinophils (%) (Auto) 2.6 % (0.0-7.0) Basophils (%) (Auto) 2.1 % (0.0-2.0) Neutrophils # (Auto) 3.8 10 ^3/uL (1.6-8.6) Lymphocytes # (Auto) 1.0 10 ^3/uL (0.4-5.4) Monocytes # (Auto) 0.6 10 ^3/uL (0-1.3) Eosinophils # (Auto) 0.1 10 ^3/uL (0-0.8) Basophils # (Auto) 0.1 10 ^3/uL (0-0.2) Nucleated Red Blood Cells 0.1 % Sodium Level 135 mmol/L (136-145) Potassium Level 4.8 mmol/L (3.5-5.1) Chloride Level 99 mmol/L (98-107) Carbon Dioxide Level 25 mmol/L (20-31) Anion Gap 11 (5-15) Blood Urea Nitrogen 56 mg/dL (9-23) Creatinine 7.61 mg/dL (0.550-1.02) Glomerular Filtration Rate Calc 6 mL/min (>90) BUN/Creatinine Ratio 7.4 (10.0-20.0) Serum Glucose 89 mg/dL (74-106) Calcium Level 7.7 mg/dL (8.7-10.4) Random Vancomycin Level 15.7 ug/mL (5-10) Magnesium Level 2.2 mg/dL (1.6-2.6) Iron Level 36 ug/dL (50-170) Total Iron Binding Capacity 247 ug/dL (250-425) Percent Iron Saturation 14.6 % (15-50) Ferritin 225.6 ng/mL (10-291) Total Bilirubin 0.2 mg/dL (0.2-1.0) Aspartate Amino Transferase (AST) 14 U/L (<34) Alanine Aminotransferase (ALT) < 9 U/L (7-40) Alkaline Phosphatase 133 U/L (46-116) Total Protein 6.1 g/dL (5.7-8.2) Albumin 3.5 g/dL (3.2-4.8) Hepatitis A IgM Antibody Negative Hepatitis B Surface Antigen Negative (Negative) Hepatitis B Core IgM Antibody Negative (Negative) Hepatitis C Antibody Negative (Negative) B-Type Natriuretic Peptide 815.78 pg/mL (0-100) POC Glucose 112 mg/dl (70-106) Test 03/30/25 19:22 Lactic Acid Level 2.0 mmol/L (0.4-2.0) Other Laboratory Tests 04/03/25 06:49 Brief Hx & Hospital Course: Final diagnoses: Abdominal wall cellulitis ESRD Ascites Liver cirrhosis Hypocalcemia Weakness She was admitted for swelling and pain of the lower abdominal pain IV antibiotics was started She improved slowly HD was done by nephrology Overall she improved and was discharged home today on po antibiotics Condition at Discharge: Stable Final Diagnosis/Problems List Abdominal wall cellulitis ESRD Ascites Liver cirrhosis Hypocalcemia Weakness Discharge Disposition: Home SNF Discharge Will this Physician continue t: No Discharge Instruct/Medications Diet: Consistent carbohydrate, Cardiac 2g Na,low cholest, Renal Activity: No Restrictions, As Tolerated Follow Up/Referral: HD tomorrow PCP [facility] Medications: Clindamycin 300 mg tid x 5 days Discharge Statement: "Patient was advised to return to the ER or call 911 if any headaches, dizziness, shortness of breath, chest pain, abdominal pain, bleeding, fevers, or worsening of medical condition. Patient was counseled about treatment plan, medications, possible side effects, patientverbalized understanding. All questions were answered to the best of my ability. This discharge took greater then 30 minutes in planning, reviewing documentation, counseling the patient, and discussing with other team members." ASSESSMENT ASSESSMENT Assessment ESRD Date of Service: Apr 03, 2025 Billing Provider: CHRISTELLE VILLANUEVA MD Common Visit Codes: [id number] DISCH DAY >30min CHRISTELLE VILLANUEVA MD Apr 03, 2025 17:44
--- NOTE | 2025-04-03 19:24 | DVHPN2 ---
Progress Note Date Seen: Apr 03, 2025 Medical Necessity Reason Pt with a Central, PICC or Fol: No Subjective Patient reports: No new complaints Review of Systems: Deferred Objective vital signs Vital Sign Date Time Temp Pulse Resp B/P (MAP) Pulse Ox O2 Delivery O2 Flow Rate FiO2 04/03/25 17:19 97.8 49 18 113/53 (73) 97 97.8 04/03/25 08:00 Room Air* 0 21 Total Intake and Output 04/02/25 04/02/25 04/03/25 15:00 23:00 07:00 Intake Total 820 ml 450 ml Balance 820 ml 450 ml laboratory and microbiology Laboratory Tests 04/03/25 06:49 Test 04/03/25 06:49 Range/Units Serum Glucose 89 74-106 mg/dL Microbiology Date/Time Source Procedure Growth Status 03/31/25 04:50 Nose MRSA Screen - Final Complete 03/30/25 19:22 Blood Blood Culture - Preliminary NO GROWTH AFTER 72 HOURS OF INCUBATION. Resulted Problem List/Assessment/Plan Problem List/Assessment/Plan End-stage renal disease on hemodialysis Cellulitis Ascites Recommendations Hemodialysis will be tomorrow if still here otherwise resume outpatient HD Plan discussed with: Patient FARRAH HILL MD Apr 03, 2025 19:23
== END 2025-04-03 18:15 | disposition home or self-care (01) | DRG 602 ==
LOC: EDBD 18:59 → ER 19:08 → OVERFLOW 23:46 → TELE-WESTW 03-31 01:17
PROVIDERS: ADMIT Internal Medicine Geriatric Medicine; ATTEND Internal Medicine Geriatric Medicine
PROC: 5A1D70Z Performance of Urinary Filtration, Intermittent, Less than 6 Hours Per Day (ICD-10-PCS; principal; 2025-04-01)
DX: L03.311 Cellulitis of abdominal wall (principal); N18.6 End stage renal disease; R18.8 Other ascites; I13.2 Hypertensive heart and chronic kidney disease with heart failure and with stage 5 chronic kidney disease, or end stage renal disease; K74.60 Unspecified cirrhosis of liver; E83.51 Hypocalcemia; I50.9 Heart failure, unspecified; Z88.8 Allergy status to other drugs, medicaments and biological substances; Z79.891 Long term (current) use of opiate analgesic; Z79.899 Other long term (current) drug therapy; Z79.82 Long term (current) use of aspirin; Z86.73 Personal history of transient ischemic attack (TIA), and cerebral infarction without residual deficits; Z98.891 History of uterine scar from previous surgery; Z80.3 Family history of malignant neoplasm of breast; Z99.2 Dependence on renal dialysis
CPT/HCPCS: 36415; 80048; 80053; 80074; 80202; 82565; 82728; 82962; 83540; 83550; 83605; 83735; 83880; 85025; 87040; 87081; G0378; J2185; P9047

== ENCOUNTER 2025-04-25 17:35 | Inpatient (IN) | payer OTHER, MEDICAID ==
[~2025-04-25] VITALS: Ht 160 cm; Wt 81.8 kg
[~2025-04-25 17:35] MED LIST changes: +CLIN300C2 PO
--- NOTE | 2025-04-25 17:45 | ED.PDOC ---
Altered Mental Status HPI Comments This is a 44 year old female BIBA presenting to the ED with chief complaint of ALOC. EMS reports that the patient was at the dialysis center, 2 hours into her dialysis today, when all of a sudden the patient stared blankly at the wall and was not responding to questions, staff calling 911 soon after. EMS relays that the patient was able to answer some questions on scene, despite appearing fatigued, however, on route the patient became unresponsive and unable to be woken up. EMS notes patient has history of seizures and staff believed patient was having an absence seizure. Patient's blood glucose was noted to be 73, so she was given 15g of glucose and it is now 85. Patient unable to answer any questions at this time. EMS denies any N/V/D. Time Seen by MD: 17:42 Primary Care Provider: UNKNOWN Reviewed Notes: Nurses Notes, Rod Puller And Coiler Notes, Medications, Allergies Allergies: Coded Allergies: Methylprednisolone (Verified Allergy, Unknown, 04/16/23) Home Meds Active Scripts Clindamycin Hcl (Cleocin) 300 Mg Cap, 300 MG PO TID for 5 Days, #15 CAP Prov:CHRISTELLE VILLANUEVA MD 04/03/25 Albuterol Sulfate (VENTOLIN MDI) 90 Mcg Ih, 90 MCG IN Q4HR PRN, #1 INH Prov:ENEDINA FRY MD 03/10/24 Midodrine Hcl (Midodrine Hcl) 10 Mg Tab, 10 MG PO BID, #60 TAB Prov:ENEDINA FRY MD 03/10/24 Sildenafil Citrate (Pulmonary (Revatio) 10 Mg/Ml Arielle, 20 MG PO DAILY, #60 ML Prov:ENEDINA FRY MD 03/10/24 Lorazepam (ATIVAN TABLET) 0.5 Mg Tb, 1 TAB PO DAILY, #30 TAB Prov:ENEDINA FRY MD 03/10/24 Reported Medications Clonidine Hcl ([id number] PATCH) 0.1 Mg/24 Hr Ph, 0.1 MG TD PRN for SBP>150, PATCH 02/29/24 Aspirin (Aspirin Low Dose) 81 Mg Chw, 81 MG PO DAILY, TAB.CHEW 02/29/24 Hydralazine Hcl (Hydralazine Hcl) 100 Mg Tab, 1 TAB PO DAILY, #90 TAB 5 Refills 8/12/22 Calcium Acetate (Phosphate Bin (Calcium Acetate) 667 Mg Cap, 1334 MG PO TIDWM, MG 05/30/22 Hydrocodone-Acetaminophen (Hydrocodone Bitartrate/AC 5-325 mg) 1 Tab Tab, 1 TAB PO BIDPRN PRN for PAIN 03/19/22 Information Source: Emergency Med Personnel Mode of Arrival: EMS Severity: Severe, Unresponsive Timing: Hours Duration: Since onset Prehospital treatment: Other (Glucose) Quality: Decreased Alertness, Change in Behavior, Confusion Recent: Other (Dialysis) Past Medical History PAST MEDICAL HISTORY: Anxiety, Cancer (Brain tumor), CHF, CVA, ESRD, HTN, Liver, Seizures Surgical History: BTL, PROJECT CONTROL MANAGER History: Denies all PROJECT CONTROL MANAGER Hx Family History Family History: Reviewed,noncontributory to illness Social History Smoker: Non-Smoker Alcohol: Denies ETOH Use Drugs: Denies Drug Use Lives In: Home Unable to Obtain due to: Altered Mental Status All Other Systems: Reviewed and Negative Physical Exam General Appearance: Moderate Distress HEENT: Pale [place] (L), Pale Conj[place]ae (R), Pharynx Normal, TMs Normal Neck: Full Range of Motion, Non-Tender, Normal, Normal Inspection Respiratory: Chest Non-Tender, Lungs Clear, No Accessory Muscle Use, No Respiratory Distress, Normal Breath Sounds Cardiovascular: No Edema, No JVD, No Murmur, No Gallop, Normal Peripheral Puls es, Regular Rate/Rhythm Breast Exam: Deferred Gastrointestinal: No Organomegaly, Non Tender, No Pulsatile Mass, Normal Bowel Sounds, Soft Genitalia: Deferred Pelvic: Deferred Rectal: Deferred Extremities: No calf tenderness, Normal capillary refill, Normal inspection, Normal range of motion, Non-tender, No pedal edema Musculoskeletal : Apperance: Normal Neurologic: finance teacher II-XII nml as Tested, Motor Weakness, No Sensory Deficits, Other (The patient is sleepy and slow to respond) Cerebellar Function: Unable to Test Reflexes: Normal Skin: Dry, Pallor, Warm Lymphatic: No Adenopathy EKG EKG : Pulse Rate (adult): 67 [place]: RAD Cardiac Rhythm: NSR Block: None Hypertrophy: None ST: Normal Was a procedure done? Was a procedure done?: No Differential Diagnosis (ALOC) Differential Diagnosis: Dehydration, Encephalopathy, Meningitis, Seizure, CVA X-Ray, Labs, Meds, VS Vital Signs Date Time Temp Pulse Resp B/P (MAP) Pulse Ox O2 Delivery O2 Flow Rate FiO2 04/25/25 19:23 66 20 97 Room Air* 0 21 04/25/25 19:23 98.2 66 18 143/92 (109) 95 98.2 04/25/25 18:47 62 20 133/77 (95) 97 04/25/25 17:59 Room Air* 0 21 04/25/25 17:59 63 20 133/77 (95) 96 04/25/25 17:45 67 04/25/25 17:41 67 04/25/25 17:40 98.2 65 18 142/74 (96) 97 98.2 Lab Test 04/25/25 18:13 Range/Units White Blood Count 4.0 L 4.4-10.8 10^3/uL Red Blood Count 4.50 4.0-5.20 10^6/uL Hemoglobin 13.3 12.2-16.2 g/dL Hematocrit 40.1 36.0-46.0 % Mean Corpuscular Volume 89.2 80.0-100.0 fL Mean Corpuscular Hemoglobin 29.5 28.0-32.0 pg Mean Corpuscular Hemoglobin Concent 33.0 32.0-36.0 g/dL Red Cell Distribution Width 18.3 H 11.8-14.3 % Platelet Count 170 140-450 10^3/uL Mean Platelet Volume 8.5 6.9-10.8 fL Neutrophils (%) (Auto) 62.1 37.0-80.0 % Lymphocytes (%) (Auto) 24.0 10.0-50.0 % Monocytes (%) (Auto) 9.1 0.0-12.0 % Eosinophils (%) (Auto) 3.0 0.0-7.0 % Basophils (%) (Auto) 1.8 0.0-2.0 % Neutrophils # (Auto) 2.5 1.6-8.6 10 ^3/uL Lymphocytes # (Auto) 1.0 0.4-5.4 10 ^3/uL Monocytes # (Auto) 0.4 0-1.3 10 ^3/uL Eosinophils # (Auto) 0.1 0-0.8 10 ^3/uL Basophils # (Auto) 0.1 0-0.2 10 ^3/uL Nucleated Red Blood Cells 0.2 % Sodium Level 142 136-145 mmol/L Potassium Level 3.9 3.5-5.1 mmol/L Chloride Level 101 98-107 mmol/L Carbon Dioxide Level 29 20-31 mmol/L Anion Gap 12 5-15 Blood Urea Nitrogen 32 H 9-23 mg/dL Creatinine 7.16 H 0.550-1.02 mg/dL Glomerular Filtration Rate Calc 7 >90 mL/min BUN/Creatinine Ratio 4.5 L 10.0-20.0 Serum Glucose 78 74-106 mg/dL Lactic Acid Level 1.1 0.4-2.0 mmol/L Calcium Level 8.5 L 8.7-10.4 mg/dL Ammonia 17 11-32 umol/L Troponin I High Sensitivity 20 </=34 ng/L CT Head indicates: No acute intracranial abnormality. Chest XR indicates: 1. Bilateral perihilar infiltrates. 2. Sternal wire sutures in place. 3. Atrial appendage clip visualized. 4. Aortic valve prosthesis in place. At this time, the patient does have bilateral perihilar infiltrates The patient's CBC is within normal limits The chemistry panel shows a BUN of 32 and a creatinine of 7.16 The troponin level is 20 The patient is being admitted to the hospitalist An IV Hep-Lock was established The ammonia level is within normal limits Images Reviewed?: Images reviewed and evaluated by me Time of 1ST Reevaluation: 19:46 Reevaluation 1ST: Unchanged Patient Education/Counseling: Pt Unresponsive Family Education/Counseling: No Family Present Additional Information Reviewed patient's previous visit(s): 03/30/25 for ESRD The following tests were ordered, and results were reviewed by me: Head CT, Chest XR, CBC, BMP, Ammonia, Lactic, Troponin, EKG Additional information was gathered from interviewing the following independent historian: EMS I reviewed and agreed with the following test results read by other provider: Head CT, Chest XR I discussed treatments and results with medical personnel and: Patient Comprehensive systems review obtained and negative except for what is stated in the HPI. SEPSIS Sepsis Screen Physician Orders Chest Portable (04/25/25 17:40) Head Without Contrast (04/25/25 17:40) Construction Trench Digger (04/25/25 17:40) Pulse Oximetry (04/25/25 17:40) Blood Pressure (04/25/25 17:40) Heplock Iv (04/25/25 17:40) Vital Signs Date Time Temp Pulse Resp B/P (MAP) Pulse Ox O2 Delivery O2 Flow Rate FiO2 04/25/25 19:23 66 20 97 Room Air* 0 21 04/25/25 19:23 98.2 66 18 143/92 (109) 95 98.2 04/25/25 18:47 62 20 133/77 (95) 97 04/25/25 17:59 Room Air* 0 21 04/25/25 17:59 63 20 133/77 (95) 96 04/25/25 17:45 67 04/25/25 17:41 67 04/25/25 17:40 98.2 65 18 142/74 (96) 97 98.2 Laboratory Tests Test 04/25/25 18:13 Lactic Acid Level 1.1 mmol/L (0.4-2.0) White Blood Count 4.0 10^3/uL (4.4-10.8) L Departure 1 Departure Time of Disposition: 19:45 Impression: Primary Impression: End-stage renal disease on hemodialysis Additional Impressions: Altered mental status Qualified Codes: R41.82 - Altered mental status, unspecified Metabolic encephalopathy Disposition: ADMITTED INPATIENT Admit to: Tele Condition: Fair Critical Care Note Critical Care Time?: Yes (45 min-critical care time only) Stability Stability form required: Yes Unstable for transfer: Telemetry monitoring (Telemetry monitoring required), ED Physician Assesment (Clinical assesment) Heart Score Heart Score: Heart Score Response (Comments) Value History N/A 0 EKG N/A 0 Age N/A 0 Risk Factors N/A 0 Troponin N/A 0 Total 0 I personally scribed for ZULEYMA WISDOM MD ([email or web address]) on 04/25/25 at 17:45. Electronically submitted by Bernard Ferraro ([email or web address]). I personally scribed for ZULEYMA WISDOM MD ([email or web address]) on 04/25/25 at 17:47. Electronically submitted by Bernard Ferraro ([email or web address]). I personally scribed for ZULEYMA WISDOM MD ([email or web address]) on 04/25/25 at 19:28. Electronically submitted by Bernard Ferraro ([email or web address]). ZULEYMA WISDOM MD Apr 25, 2025 17:45
[2025-04-25 18:38] LABS: Chloride 101 mmol/L (98-107); Potassium 3.9 mmol/L (3.5-5.1); Sodium 142 mmol/L (136-145)
[2025-04-25 18:39] LABS: Anion Gap 12 (5-15); Carbon Dioxide 29 mmol/L (20-31)
[2025-04-25 18:44] LABS: BUN/Creatinine Ratio 4.5 (10.0-20.0); Glucose 78 mg/dL (74-106)
[2025-04-25 18:49] LABS: Hematocrit 40.1 % (36.0-46.0); Hemoglobin 13.3 g/dL (12.2-16.2); Mean Corpuscular Hemoglobin 29.5 pg (28.0-32.0); Mean Corpuscular Volume 89.2 fL (80.0-100.0); Nucleated Red Blood Cells % 0.2 %
--- NOTE | 2025-04-25 19:03 | DVH ---
EXAM: CT HEAD WITHOUT CONTRAST INDICATION: aloc TECHNIQUE: CT of the head without intravenous contrast. Radiation Dose : 1. Head: CT Dose: CTDI volume is 52.12 mGy. Dose-length product is 818.3 mGy*cm The dose indicators for CT are the volume Computed Tomography (CT) Dose Index (CTDIvol) and the Dose Length Product (DLP), and are measured in units of mGy and mGy-cm, respectively. These indicators are not patient dose, but values generated from the CT scanner acquisition factors. The report includes radiation exposure data for exposures received during this examination. COMPARISON: CT HEAD WITHOUT CONTRAST on DOS: 02/17/23 FINDINGS: There is no evidence of acute intracranial hemorrhage, extra-axial collection, mass effect, midline s hift, herniation or hydrocephalus. Chronic encephalomalacia in the left frontal parietal lobe, likely from remote infarct The ventricles, sulci and cisterns are age appropriate. The hughes-white differentiation is intact. Patchy periventricular and subcortical white matter hypoattenuation is nonspecific but may be related to small vessel ischemic disease. The visualized paranasal sinuses and mastoid air cells are clear. The surrounding soft tissues and osseous structures are unremarkable. IMPRESSION: 1. No acute intracranial abnormality. Radiation optimization: All CT scans at this facility use at least one of these dose optimization gisela hniques: automated exposure control mA and/or kV adjustment per patient size (includes targeted exam s where dose is matched to clinical indication) or iterative reconstruction.
--- NOTE | 2025-04-25 19:03 | DVH ---
CHEST RADIOGRAPH Indication: aloc Technique: Single frontal view of the chest was obtained Comparison: XY CHEST PORTABLE on DOS: 02/28/24 FINDINGS: Lines and Tubes: Sternal wire sutures in place. Atrial appendage clip visualized. Cardiac valve prost hesis in place. Lungs: Prominent interstitial markings in the perihilar regions bilaterally. Pleura: No effusion. No pneumothorax. Cardiomediastinal contours: Unremarkable Bones: No acute osseous abnormality. IMPRESSION: 1. Bilateral perihilar infiltrates. 2. Sternal wire sutures in place. 3. Atrial appendage clip visualized. 4. Aortic valve prosthesis in place.
--- NOTE | 2025-04-25 19:11 | ECG ---
[facility] Test Date: 2025-04-25 Test Time: 17:41:22 Pat Name: WHIT MANN Department: ED Room: 0280T Gender: F Equities Trader: DARLENE : 1980 Requested By: ZULEYMA WISDOM Order Number: [id number] Reading MD: Won Stark Measurements Intervals [place] Rate: 67 P: 75 AL: 165 QRS: 126 QRSD: 96 T: 84 QT: 487 QTc: 514 Interpretive Statements Sinus rhythm Right axis deviation Nonspecific T abnormalities, lateral leads Prolonged QT interval Electronically Signed On 04-27-2025 19:03:52 PDT by Won Stark Please click the below link to view image of tracing.
[2025-04-25 19:23] VITALS: PULSE 66; RESP 20; O2SAT 97
[2025-04-25 19:37] LABS: Blood Urea Nitrogen 32 mg/dL (9-23); Calcium 8.5 mg/dL (8.7-10.4)
[2025-04-25] MEDS ORDERED: DEXTROSE (50%) 50ML SYRG IV PRN (21:30)
--- NOTE | 2025-04-25 21:30 | DVHHP2 ---
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 Patient with confusion, altered mental status, information was gathered from chart reviewing and talking with the nursing staff and patient's partner. Patient went for dialysis today but within 2 hours of dialysis patient started having altered mental status and confusion. patient was staring blankly at the wall and not responding to questions. 911 was called, on EMS arrival patient was able to answer some questions. Later on patient became unresponsive to question and unable to wake up. Patient with a history of seizure and as per dialysis center staff patient might have an absence seizure. Blood sugar was noted to be 73 and she was given 15 g of glucose. Initial lab workup revealed WBC 4.0, RDW 18.3, serum creatinine 7.16, BUN 32, troponin I within normal limit. CXR- Bilateral perihilar infiltrates. Sternal wire sutures in place. Atrial appendage clip visualized. Aortic valve prosthesis in place. 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, brain tumor, anxiety Past Surgical History Bilateral tubal ligation, , mitral and tricuspid valve repair, Past Social History Details of the information could not be obtained due to patient's confusion, patient lives with her partner Review of Systems Review of Systems Details of the other system could not be obtained due to patient's altered mental status Allergies: Coded Allergies: Methylprednisolone (Verified Allergy, Unknown, 04/16/23) Medications Current Medications Medications Dose Ordered Sig/Elidia Route Start Time Stop Time Status Last Admin Dose Admin Ondansetron HCl 4 mg Q4HP PRN IV 04/25/25 21:30 UNV Enoxaparin Sodium 30 mg DAILY SC 04/26/25 10:00 UNV Exam Vital Signs Vital Signs Date Time Temp Pulse Resp B/P (MAP) Pulse Ox O2 Delivery O2 Flow Rate FiO2 04/25/25 20:00 66 04/25/25 19:23 20 97 Room Air* 0 21 7/8/25 19:23 98.2 143/92 (109) 98.2 Exam General examination- patient with confusion, altered mental status, agitated HEENT- PEERLA, no acute nasal discharge Cardiovascular- S1-S2 audible, rate and rhythm regular, no murmur Respiratory- lung crackles at the base+ Gastrointestinal-nontender, bowel sound+. Nondistended Musculoskeletal-no acute joint swelling or tenderness or redness extremity- left upper arm fistula, no leg edema Neurological-details of the neurological examination could not be done due to patient's altered mental status Psychiatry-patient's confusion Skin- no acute rash or purpura Labs/Xrays Labs Test 04/25/25 20:47 04/25/25 18:13 Range/Units White Blood Count 4.0 L 4.4-10.8 10^3/uL Red Blood Count 4.50 4.0-5.20 10^6/uL Hemoglobin 13.3 12.2-16.2 g/dL Hematocrit 40.1 36.0-46.0 % Mean Corpuscular Volume 89.2 80.0-100.0 fL Mean Corpuscular Hemoglobin 29.5 28.0-32.0 pg Mean Corpuscular Hemoglobin Concent 33.0 32.0-36.0 g/dL Red Cell Distribution Width 18.3 H 11.8-14.3 % Platelet Count 170 140-450 10^3/uL Mean Platelet Volume 8.5 6.9-10.8 fL Neutrophils (%) (Auto) 62.1 37.0-80.0 % Lymphocytes (%) (Auto) 24.0 10.0-50.0 % Monocytes (%) (Auto) 9.1 0.0-12.0 % Eosinophils (%) (Auto) 3.0 0.0-7.0 % Basophils (%) (Auto) 1.8 0.0-2.0 % Neutrophils # (Auto) 2.5 1.6-8.6 10 ^3/uL Lymphocytes # (Auto) 1.0 0.4-5.4 10 ^3/uL Monocytes # (Auto) 0.4 0-1.3 10 ^3/uL Eosinophils # (Auto) 0.1 0-0.8 10 ^3/uL Basophils # (Auto) 0.1 0-0.2 10 ^3/uL Nucleated Red Blood Cells 0.2 % Sodium Level 142 136-145 mmol/L Potassium Level 3.9 3.5-5.1 mmol/L Chloride Level 101 98-107 mmol/L Carbon Dioxide Level 29 20-31 mmol/L Anion Gap 12 5-15 Blood Urea Nitrogen 32 H 9-23 mg/dL Creatinine 7.16 H 0.550-1.02 mg/dL Glomerular Filtration Rate Calc 7 >90 mL/min BUN/Creatinine Ratio 4.5 L 10.0-20.0 Serum Glucose 78 74-106 mg/dL Lactic Acid Level 1.1 0.4-2.0 mmol/L Calcium Level 8.5 L 8.7-10.4 mg/dL Ammonia 17 11-32 umol/L Troponin I High Sensitivity 20 </=34 ng/L Assessment/Plan Assessment/Plan Assessment and plan #Metabolic encephalopathy likely due to uremic encephalopathy/hypoglycemia -blood sugar 73 -patient on hemodialysis due to ESRD on Thursday//Thursday -pending blood culture, urine culture -pending Nephrology consult # ESRD on hemodialysis Thursday//Thursday -pending nephrology consult -hemodialysis as per Nephrology recommendation after consultation # hypertension -hydralazine 100 mg p.o. daily # hypoglycemia -status post 25% dextrose -monitor blood sugar level as prescribed # h/o CHF # liver cirrhosis -ammonia within normal limit -lactulose 30 mL p.o. b.i.d. -monitor ammonia level #Seizure disorder -continue Keppra 500 mg p.o. b.i.d. -pending neurology consult # severe pulmonary hypertension -continue sildenafil 20 mg p.o. daily # history of mitral and tricuspid valve repair -follow up with the Cardiology outpatient # history of CVA -CTA negative for acute intracranial abnormality Goals of care, Code status Full code ; discussed with >15 minutes PUD prophylaxis: Pantoprazole DVT prophylaxis: Heparin Plan discussed with Dr. Castaneda , nursing staff, Total time spent on patient evaluation, chart review, assessment and plan, discussion discussion >35 minutes Plan discussed with: Other (RN, patient's partner) My Orders Orders - KARRIE HERNANDEZ RESIDENT Procedure Category Date Status Time Admit ADMIT 04/25/25 Transmitted 21:22 Code Status CODE 04/25/25 Transmitted 21:22 Ondansetron Hcl PHA 04/25/25 Logged (Zofran) 21:30 Complete Blood Count LAB 04/26/25 Verified 04:00 Comprehensive LAB 04/26/25 Verified Metabolic Panel 04:00 Npo (Nothing By DIET 04/26/25 Transmitted Mouth) Diet Breakfast Enoxaparin Sodium PHA 04/26/25 Logged (Lovenox) 10:00 Notify Of Changes АЛЕКСАНДР 04/25/25 In Process From Base 21:22 Automatic Pattern Edger For АЛЕКСАНДР 04/25/25 In Process 24 Hours 21:22 Magnesium LAB 04/25/25 In Process 21:25 Hepatic Panel LAB 04/25/25 In Process 21:25 Thyroid Stimulating LAB 04/25/25 In Process Hormone 21:25 *Dr. [facility] CONS 04/25/25 Transmitted -[place] 21:26 Calcium Acetate PHA 04/26/25 Transmitted Capsule (Phoslo 08:00 (Nf) Hydralazine Hcl PHA 04/26/25 Transmitted 10:00 (Nf) Sildenafil PHA 04/26/25 Transmitted Citrate (Pulmonary 10:00 Date of Service: Apr 25, 2025 Billing Provider: GUSTAVO CASTANEDA MD Common Visit Codes: 53564-CTSESAR INP/OBS CARE (HIGH) Secondary Visit Codes: 28838-[id number] CARE PLAN 30 MINUTES KARRIE HERNANDEZ RESIDENT Apr 25, 2025 21:30
[2025-04-25] MEDS: LORazepam 2MG/ML-1ML VIAL IV ONE (21:36)
[2025-04-25 22:07] LABS: Alanine Aminotransferase 11.0 U/L (7-40); Magnesium 2.3 mg/dL (1.6-2.6); Total Protein 6.4 g/dL (5.7-8.2)
[2025-04-25 22:08] LABS: Albumin 3.8 g/dL (3.2-4.8); Alkaline Phosphatase 147.0 U/L (46-116); Bilirubin, Direct 0.2 mg/dL (<0.3); Bilirubin, Total 0.4 mg/dL (0.2-1.0)
[2025-04-25 22:14] LABS: INR 1.11 (0.9-1.15); Partial Thromboplastin Time 28.8 SEC (24.5-34.5); Prothrombin Time 11.6 sec (9.3-11.8)
[2025-04-25] MEDS: LACTULOSE 20Gm/30ML SOLN PO ONE (22:14)
[2025-04-25] MEDS: PANTOPRAZOLE 40 MG TAB PO ONE (22:14)
[2025-04-26] MEDS: ACCU-CHEK COMFORT CURVE STRIP VI SCH
[2025-04-26] MEDS: levETIRAcetam 500 MG TAB PO ONE (03:30)
[2025-04-26] MEDS ORDERED: AZITHROMYCIN 500MG/ 250ML 250 ML IV ONE (03:45)
[2025-04-26] MEDS: cefTRIAXone 1GM/50ML D5W 50 ML IV ONE (03:45)
[2025-04-26] MEDS: PANTOPRAZOLE 40 MG TAB PO SCH (06:00)
[2025-04-26 09:04] LABS: Hematocrit 42.4 % (36.0-46.0); Hemoglobin 13.8 g/dL (12.2-16.2); Mean Corpuscular Hemoglobin 28.9 pg (28.0-32.0); Mean Corpuscular Volume 88.9 fL (80.0-100.0); Nucleated Red Blood Cells % 0.2 %
[2025-04-26 09:23] LABS: Albumin 3.7 g/dL (3.2-4.8); Anion Gap 12 (5-15); BUN/Creatinine Ratio 4.2 (10.0-20.0); Bilirubin, Total 0.4 mg/dL (0.2-1.0); Carbon Dioxide 27 mmol/L (20-31); Chloride 101 mmol/L (98-107); Potassium 4.7 mmol/L (3.5-5.1); Sodium 140 mmol/L (136-145); Total Protein 6.3 g/dL (5.7-8.2)
[2025-04-26 09:34] LABS: Alanine Aminotransferase 9 U/L (7-40); Alkaline Phosphatase 145 U/L (46-116); Blood Urea Nitrogen 36 mg/dL (9-23); Calcium 8.1 mg/dL (8.7-10.4); Glucose 64 mg/dL (74-106)
[2025-04-26 09:53] VITALS: PULSE 62; RESP 13; O2SAT 93
--- NOTE | 2025-04-26 09:58 | DVHINCON2 ---
Date of service: Apr 26, [address] Sandhu Reason for Consultation Seizure,? Keppra toxicity/intolerance as per pattern History of Present Illness Ms. Malik is a 44 years old right-handed female with a history of hypertension, stroke, end-stage renal failure on hemodialysis, anxiety, she came to [facility] on 04/25/2025 with a chief complaint of altered mental status, at that time, she is awake, oriented to person, place, with a little bit clue, she tells me right year, good social skills, she has slurred speech and mild expressive aphasia, poor historian, the history is obtained from her sister Sarah, I have also talked her nurse, reviewed the chart I saw on 10/10/2018 for seizure. I saw her briefly my office in 2019 Her nurse relates the patient was mentally challenged during hemodialysis, but she recovered gradually in the emergency room Her sister relates on 04/25/2025, during her hemodialysis, she become confused, did not know what going on with her, and she was brought to the [facility] by ambulance. The patient has never had similar problems previously She has seizure disorder since 12/2017. According to my consultation reports on 10/10/18, she does not remember but she was told to have spells of shaking all over her body, but she also told me during the event, she could understand what people talking about but was not able to response. Her seizure lasted for about 10 minutes. She had tongue biting during the events On 04/26/2025, her sister reported episodic event where she had shaking in the upper portion of her body, eyes rolling back, head moving up and down, she woke up 3-5 minutes after the event was over, and she is mentally recovered about 5 minutes after the event, and she started crying. She has had six events in the 1st six months of 2024. Sister had not witnessed associated biting or incontinence. She is on Keppra 500 mg b.i.d. (external medication history) She had stroke in 12/2017. According to my consult report dated 10/10/18, he reported that when she was going through hemodialysis, she suddenly could not talk, the patient was seen in the [facility], and she was said to have stroke. On 04/26/2025, her sister also related she had right-sided weakness, could not talk and she was in the [facility] for one month. Since she recovered from the stroke, she has had slurred speech and difficulty to express herself, which has been improving as time passing but. She was said to have hemodialysis catheter infection. One day in 07/2024, she woke up confused, not able to stand, her head or dropping, the patient was sent to the [facility] and then was transferred to the [facility] because of brain mass lesion. In the [facility], the patient was said to have mass lesion but not tumor or cancer, and she went through craniotomy, her sister did not know if this mass lesion and craniotomy affect her speech/language She has anxiety since her adult life, she worries excessively, she has been on lorazepam for many years CBC, 04/26/2025: Unremarkable BUN/CR, 04/26/2025: 36/8.58 GFR, 04/26/2025: Five HGB A1c, 04/26/2025: 4.5 Liver function tests, 04/25/2025: Normal Vitamin B12, 04/26/2025: 1057 Folic acid, 04/26/2025: 12.98 TSH, 04/25/2025: 1.41 TG/HDL/LDL/HDL, 10/11/21: 31/110/44/56 CT head, 10/08/18: 5 mm ill-defined hypodense focus in the left frontal subcortical white matter, new compared to prior study 01/16/2010. Finding is nonspecific, and could represent a seizure focus or small mass. Early chronic microvascular ischemic changes or even atypical demyelination also can have this appearance. MRI is recommended. No acute hemorrhage. No other acute intracranial findings. CT head, 02/17/2023: No acute intracranial hemorrhage, extra-axial fluid collection, mass effect, or large transterritorial infarct (I have reviewed the films, I did not see changes consistent with acute/chronic stroke) CT head, 04/25/2025: No acute intracranial abnormality (Chronic encephalomalacia in the left frontal parietal lobe, likely from remote infarct) MRI head, 10/11/2018: No evidence of acute intracranial pathology Past Medical History Hypertension, congestive heart failure, liver disorder, end-stage renal failure, anemia Past Surgical History , tubal ligation, cardiac valve surgery Family History: FH: breast cancer Grandmother Family History Breast cancer Social History She is a nonsmoker, no history of alcohol recreational substance abuse Allergies: Coded Allergies: Methylprednisolone (Verified Allergy, Unknown, 04/16/23) Home Meds Active Scripts Clindamycin Hcl (Cleocin) 300 Mg Cap, 300 MG PO TID for 5 Days, #15 CAP Prov:CHRISTELLE VILLANUEVA MD 04/03/25 Albuterol Sulfate (VENTOLIN MDI) 90 Mcg Ih, 90 MCG IN Q4HR PRN, #1 INH Prov:ENEDINA FRY MD 03/10/24 Midodrine Hcl (Midodrine Hcl) 10 Mg Tab, 10 MG PO BID, #60 TAB Prov:ENEDINA FRY MD 03/10/24 Sildenafil Citrate (Pulmonary (Revatio) 10 Mg/Ml Arielle, 20 MG PO DAILY, #60 ML Prov:ENEDINA FRY MD 03/10/24 Lorazepam (ATIVAN TABLET) 0.5 Mg Tb, 1 TAB PO DAILY, #30 TAB Prov:ENEDINA FRY MD 03/10/24 Reported Medications Clonidine Hcl ([id number] PATCH) 0.1 Mg/24 Hr Ph, 0.1 MG TD PRN for SBP>150, PATCH 02/29/24 Aspirin (Aspirin Low Dose) 81 Mg Chw, 81 MG PO DAILY, TAB.CHEW 02/29/24 Hydralazine Hcl (Hydralazine Hcl) 100 Mg Tab, 1 TAB PO DAILY, #90 TAB 5 Refills 05/30/22 Calcium Acetate (Phosphate Bin (Calcium Acetate) 667 Mg Cap, 1334 MG PO TIDWM, MG 05/30/22 Hydrocodone-Acetaminophen (Hydrocodone Bitartrate/AC 5-325 mg) 1 Tab Tab, 1 TAB PO BIDPRN PRN for PAIN 03/19/22 Current Medications Current Medications Medications (Trade) Dose Ordered Sig/Elidia Route PRN Reason Start Time Stop Time Status Last Admin Ondansetron HCl (Zofran) 4 mg Q4HP PRN IV NAUSEA / VOMITING 04/25/25 21:30 Enoxaparin Sodium (Lovenox) 30 mg DAILY SC 04/26/25 10:00 04/26/25 03:48 DC Calcium Acetate (Phoslo Capsule) 1,334 mg TIDWM PO 04/26/25 08:00 Hydralazine HCl (Apresoline Tablet) 100 mg DAILY PO 04/26/25 10:00 Sildenafil Citrate (Revatio) 20 mg DAILY PO 04/26/25 10:00 Pantoprazole Sodium (Protonix Tablet) 40 mg DAILY@0600 PO 04/26/25 06:00 Diagnostic Test (Pha) (Accu-Chek Comfort Curve T) 1 strip IQ4HR 04/26/25 00:00 Dextrose 50 ml UD PRN IV Blood Sugar LESS THAN 60 04/25/25 21:30 Lactulose 30 ml BID PO 04/26/25 10:00 Levetiracetam (Keppra Tablet) 500 mg BID PO 04/26/25 10:00 Ceftriaxone Sodium 50 ml @ 100 mls/hr DAILY@2100 IV 04/26/25 21:00 Azithromycin 250 ml @ 125 mls/hr DAILY IV 04/26/25 10:00 04/26/25 03:50 DC Heparin Sodium (Porcine) 5,000 units Q12HR SC 04/26/25 10:00 Azithromycin (Zithromax Tablet) 500 mg DAILY PO 04/26/25 10:00 04/26/25 09:06 DC Doxycycline Monohydrate (Vibramycin Tablet) 100 mg Q12HR PO 04/26/25 10:00 Review of Systems As above, the other system a negative Vital Signs Vital Signs Date Time Temp Pulse Resp B/P (MAP) Pulse Ox O2 Delivery O2 Flow Rate FiO2 04/26/25 08:00 63 04/26/25 07:00 20 04/26/25 01:21 95 04/25/25 23:07 132/80 (97) 04/25/25 19:23 Room Air* 0 21 04/25/25 19:23 98.2 98.2 Physical Exam GENERAL EXAM: General: the patient is well developed and nourished. No acute distress. HEENT: Status post left craniotomy, neck is supple, no carotid bruits. No mass. RESPIRATORY: Normal respiratory effort with symmetrical lung expansion. Lungs clear to auscultation. CARDIOVASCULAR: Regular rate and rhythm with no murmurs. S1, S2. ABDOMEN: Soft, nontender, normal bowel sound NEUROLOGICAL: MENTAL STATUS: HPI SPEECH, LANGUAGE, HIGHER CORTICAL FUNCTION: Mild expressive aphasia, dysarthria CRANIAL NERVES: #2: Intact visual painting to confrontation. The optic discs were sharp. #3,4,6: Pupils are equal, round and reactive. EOMs full and conjugate. No nystagmus. #5: Facial sensation intact in all three divisions bilaterally. Mandibular strength intact. #7: Facial muscles symmetrical and strength intact. #8: Hearing grossly normal to voice. #9,10: Uvula and soft palate rise in the midline. Swallow and voice are normal. #11: Trapezius and sternomastoid strength intact bilaterally. #12: Tongue midline. No fasciculations or atrophy. SENSATION: Sensation to touch and pinprick is normal. MOTOR: Normal tone in the upper and lower extremity. Normal muscle bulk. No fasciculations. No abnormal movements or posturing. Muscle strength of the major groups in the upper extremities is 5/5. Muscle strength of the major groups in the lower extremities is 5/5. REFLEXES: Deep tendon reflexes normal and symmetrical. No pathological reflexes. CEREBELLAR/COORDINATION: Finger to nose is normal bilaterally. GAIT/STATION: deferred. Labs/Diagnostic Data Labs Test 04/26/25 08:38 04/25/25 20:47 04/25/25 18:13 Range/Units White Blood Count 3.6 L 4.4-10.8 10^3/uL Red Blood Count 4.77 4.0-5.20 10^6/uL Hemoglobin 13.8 12.2-16.2 g/dL Hematocrit 42.4 36.0-46.0 % Mean Corpuscular Volume 88.9 80.0-100.0 fL Mean Corpuscular Hemoglobin 28.9 28.0-32.0 pg Mean Corpuscular Hemoglobin Concent 32.5 32.0-36.0 g/dL Red Cell Distribution Width 18.8 H 11.8-14.3 % Platelet Count 168 140-450 10^3/uL Mean Platelet Volume 8.7 6.9-10.8 fL Neutrophils (%) (Auto) 60.3 37.0-80.0 % Lymphocytes (%) (Auto) 23.6 10.0-50.0 % Monocytes (%) (Auto) 10.5 0.0-12.0 % Eosinophils (%) (Auto) 3.1 0.0-7.0 % Basophils (%) (Auto) 2.5 H 0.0-2.0 % Neutrophils # (Auto) 2.2 1.6-8.6 10 ^3/uL Lymphocytes # (Auto) 0.9 0.4-5.4 10 ^3/uL Monocytes # (Auto) 0.4 0-1.3 10 ^3/uL Eosinophils # (Auto) 0.1 0-0.8 10 ^3/uL Basophils # (Auto) 0.1 0-0.2 10 ^3/uL Nucleated Red Blood Cells 0.2 % Sodium Level 140 136-145 mmol/L Potassium Level 4.7 3.5-5.1 mmol/L Chloride Level 101 98-107 mmol/L Carbon Dioxide Level 27 20-31 mmol/L Anion Gap 12 5-15 Blood Urea Nitrogen 36 H 9-23 mg/dL Creatinine 8.58 H 0.550-1.02 mg/dL Glomerular Filtration Rate Calc 5 >90 mL/min BUN/Creatinine Ratio 4.2 L 10.0-20.0 Serum Glucose 64 L 74-106 mg/dL Hemoglobin A1c 4.5 <5.7 % A1C Calcium Level 8.1 L 8.7-10.4 mg/dL Magnesium Level 2.3 1.6-2.6 mg/dL Total Bilirubin 0.4 0.2-1.0 mg/dL Aspartate Amino Transferase (AST) 25 13-40 U/L Alanine Aminotransferase (ALT) 9 7-40 U/L Alkaline Phosphatase 145 H 46-116 U/L C-Reactive Protein High Sensitivity 0.46 <1.0 mg/dL B-Type Natriuretic Peptide 1496.99 0-100 pg/mL Total Protein 6.3 5.7-8.2 g/dL Albumin 3.7 3.2-4.8 g/dL Vitamin B12 Level 1057 H 211-911 pg/mL Vitamin D 25-Hydroxy 22.0 L 30.0-100 ng/mL Folic Acid 12.98 >5.38 ng/mL Direct Bilirubin 0.2 <0.3 mg/dL Plasma/Serum Blood Alcohol < 3.0 <10 mg/dL Prothrombin Time 11.6 9.3-11.8 sec Prothrombin Time INR 1.11 0.9-1.15 Activated Partial Thromboplast Time 28.8 24.5-34.5 SEC Lactic Acid Level 1.1 0.4-2.0 mmol/L Ammonia 17 11-32 umol/L Troponin I High Sensitivity 20 </=34 ng/L Thyroid Stimulating Hormone (TSH) 1.41 0.55-4.78 uIU/mL Assessment This is a complicated and difficult consultation Altered mental status on 04/25/2025 ? Metabolic encephalopathy ? Seizure Other central nervous system acute pathology Generalized tonic-clonic seizure, with atypical features Reported stroke Left hemisphere mass lesion status post craniotomy in 07/2024 Anxiety Plan/Recommendation Monitoring Supportive treatment UDS Lipitor profile EEG MRI brain scan Keppra 500 mg b.i.d. Ativan for seizure breakthrough Ativan for anxiety Aspirin 81 mg daily DVT prophylaxis Nephrology on case Follow-up with her doctors on discharge More recommendation per clinical course Progress: Poor This medical document was created using an electronic medical record system with [employer] dictation system. Although this document has been carefully reviewed, there may still be some phonetic and typographical errors. These areas are purely typographical due to imperfections of the software programs, and do not reflect any compromise in the patient's medical care. Plan discussed with: Other BELLA BOYER MD Apr 26, 2025 09:57
[2025-04-26] MEDS: HEPARIN SODIUM (PORCINE) 5000 UNITS/ML 1ML VIAL SC SCH (10:00)
[2025-04-26] MEDS ORDERED: AZITHROMYCIN 250 MG TAB PO SCH (10:00)
[2025-04-26] MEDS ORDERED: AZITHROMYCIN 500MG/ 250ML 250 ML IV SCH (10:00)
[2025-04-26] MEDS ORDERED: ENOXAPARIN SOD 30 MG/0.3 ML SYRINGE SC SCH (10:00)
[2025-04-26] MEDS: AZITHROMYCIN 250 MG TAB PO ONE (10:50)
[2025-04-26] MEDS: SILDENAFIL CITRATE 20 MG TAB PO SCH (10:50)
[2025-04-26] MEDS: CALCIUM ACETATE 667 MG CAP PO SCH (10:50)
[2025-04-26] MEDS: DOXYCYCLINE 100 MG TAB/CAP PO SCH (10:50)
[2025-04-26] MEDS: levETIRAcetam 500 MG TAB PO SCH (10:50)
[2025-04-26] MEDS: LACTULOSE 20Gm/30ML SOLN PO SCH (10:51)
[2025-04-26] MEDS: ERGOCALCIFEROL 50,000 UNIT(1.25MG) CAP PO SCH (12:24)
--- NOTE | 2025-04-26 12:44 | DVHCONRES ---
Date Seen: Apr 26, 2025 Resident Creating Document: HERIBERTO GUNDERSON RESIDENT Referring Physician Dr. Sandhu History of Present Illness This is a 44-year-old female with a history of seizure disorder on Keppra, ESRD on hemodialysis with [facility] Thursday//Thursday for the past 10 yea rs, congestive heart failure, cirrhosis, mitral valve/tricuspid valve repair secondary to questionable endocarditis, history of multiple strokes-last stroke 10/11 and intracranial mass status post excision who presented to the ER with a chief complaint of seizure-like episode while undergoing hemodialysis on 04/25. Patient was undergoing dialysis yesterday when she got confused and had a stabbing like spell, patient was nonresponsive and was shaking all over, unable to wake up, eyes rolled back per chart review and episode continued for 10 minutes. Patient got conscious and was confused. She reports that she has been taking Keppra for the past 2 weeks. She had 1 episode of seizure at home 04/24 per her partner. Other than that last seizure was 2017. Patient was recently in this hospital in 04/03 for cellulitis. Home medications: Calcium acetate, sevelamer, aspirin, hydralazine, clonidine Patient seen and examined at the bedside. CT head is negative. Dialysis scheduled for tomorrow preliminary. Family History: FH: breast cancer Grandmother Allergies: Coded Allergies: Methylprednisolone (Verified Allergy, Unknown, 04/16/23) Home Meds Active Scripts Clindamycin Hcl (Cleocin) 300 Mg Cap, 300 MG PO TID for 5 Days, #15 CAP Prov:CHRISTELLE VILLANUEVA MD 04/03/25 Albuterol Sulfate (VENTOLIN ROSY) 90 Mcg Ih, 90 MCG IN Q4HR PRN, #1 INH Prov:ENEDINA FRY MD 03/10/24 Midodrine Hcl (Midodrine Hcl) 10 Mg Tab, 10 MG PO BID, #60 TAB Prov:ENEDINA FRY MD 03/10/24 Sildenafil Citrate (Pulmonary (Revatio) 10 Mg/Ml Areille, 20 MG PO DAILY, #60 ML Prov:ENEDINA FRY MD 03/10/24 Lorazepam (ATIVAN TABLET) 0.5 Mg Tb, 1 TAB PO DAILY, #30 TAB Prov:ENEDINA FRY MD 03/10/24 Reported Medications Clonidine Hcl ([id number] PATCH) 0.1 Mg/24 Hr Ph, 0.1 MG TD PRN for SBP>150, PATCH 02/29/24 Aspirin (Aspirin Low Dose) 81 Mg Chw, 81 MG PO DAILY, TAB.CHEW 02/29/24 Hydralazine Hcl (Hydralazine Hcl) 100 Mg Tab, 1 TAB PO DAILY, #90 TAB 5 Refills 05/30/22 Calcium Acetate (Phosphate Bin (Calcium Acetate) 667 Mg Cap, 1334 MG PO TIDWM, MG 05/30/22 Hydrocodone-Acetaminophen (Hydrocodone Bitartrate/AC 5-325 mg) 1 Tab Tab, 1 TAB PO BIDPRN PRN for PAIN 03/19/22 Current Medications Current Medications Medications (Trade) Dose Ordered Sig/Elidia Route PRN Reason Start Time Stop Time Status Last Admin Ondansetron HCl (Zofran) 4 mg Q4HP PRN IV NAUSEA / VOMITING 04/25/25 21:30 Enoxaparin Sodium (Lovenox) 30 mg DAILY SC 04/26/25 10:00 04/26/25 03:48 DC Calcium Acetate (Phoslo Capsule) 1,334 mg TIDWM PO 04/26/25 08:00 04/26/25 11:59 Hydralazine HCl (Apresoline Tablet) 100 mg DAILY PO 04/26/25 10:00 Sildenafil Citrate (Revatio) 20 mg DAILY PO 04/26/25 10:00 04/26/25 10:50 Pantoprazole Sodium (Protonix Tablet) 40 mg DAILY@0600 PO 04/26/25 06:00 Diagnostic Test (Pha) (Accu-Chek Comfort Curve T) 1 strip IQ4HR 04/26/25 00:00 04/26/25 11:59 Dextrose 50 ml UD PRN IV Blood Sugar LESS THAN 60 04/25/25 21:30 Lactulose 30 ml BID PO 04/26/25 10:00 04/26/25 10:51 Levetiracetam (Keppra Tablet) 500 mg BID PO 04/26/25 10:00 04/26/25 10:50 Ceftriaxone Sodium 50 ml @ 100 mls/hr DAILY@2100 IV 04/26/25 21:00 Azithromycin 250 ml @ 125 mls/hr DAILY IV 04/26/25 10:00 04/26/25 03:50 DC Heparin Sodium (Porcine) 5,000 units Q12HR SC 04/26/25 10:00 Azithromycin (Zithromax Tablet) 500 mg DAILY PO 04/26/25 10:00 04/26/25 09:06 DC Doxycycline Monohydrate (Vibramycin Tablet) 100 mg Q12HR PO 04/26/25 10:00 04/26/25 10:50 Ergocalciferol (Vitamin D 50,000 Unit) 50,000 unit Q7D PO 04/26/25 11:30 04/26/25 12:24 Vital Signs Vital Signs Date Time Temp Pulse Resp B/P (MAP) Pulse Ox O2 Delivery O2 Flow Rate FiO2 04/26/25 12:00 59 16 133/72 (92) 92 04/26/25 09:53 Room Air* 0 21 04/26/25 09:00 98.5 98.5 Physical Exam Overweight female patient lying in the bed comfortably, no acute distress. Patient has a left upper arm fistula General: Overweight, afebrile, palor, mucosae are moist Cardiovascular: Regular S1 and S2. No murmurs, gallops or rubs. No JVD elevation. No pedal edema Respiratory: Normal B/L air entry on room air. Clear lung sounds on auscultation Abdomen: Soft, distended and tender, normoactive bowel sounds, no rebound tenderness, no organomegaly, no masses Genitourinary: Deferred MSK/skin: Skin is dry and warm Labs/Diagnostic Data Labs Test 04/26/25 12:23 04/26/25 12:03 04/26/25 08:38 04/25/25 20:47 Range/Units POC Glucose 75 70-106 mg/dl White Blood Count 3.6 L 4.4-10.8 10^3/uL Red Blood Count 4.77 4.0-5.20 10^6/uL Hemoglobin 13.8 12.2-16.2 g/dL Hematocrit 42.4 36.0-46.0 % Mean Corpuscular Volume 88.9 80.0-100.0 fL Mean Corpuscular Hemoglobin 28.9 28.0-32.0 pg Mean Corpuscular Hemoglobin Concent 32.5 32.0-36.0 g/dL Red Cell Distribution Width 18.8 H 11.8-14.3 % Platelet Count 168 140-450 10^3/uL Mean Platelet Volume 8.7 6.9-10.8 fL Neutrophils (%) (Auto) 60.3 37.0-80.0 % Lymphocytes (%) (Auto) 23.6 10.0-50.0 % Monocytes (%) (Auto) 10.5 0.0-12.0 % Eosinophils (%) (Auto) 3.1 0.0-7.0 % Basophils (%) (Auto) 2.5 H 0.0-2.0 % Neutrophils # (Auto) 2.2 1.6-8.6 10 ^3/uL Lymphocytes # (Auto) 0.9 0.4-5.4 10 ^3/uL Monocytes # (Auto) 0.4 0-1.3 10 ^3/uL Eosinophils # (Auto) 0.1 0-0.8 10 ^3/uL Basophils # (Auto) 0.1 0-0.2 10 ^3/uL Nucleated Red Blood Cells 0.2 % Sodium Level 140 136-145 mmol/L Potassium Level 4.7 3.5-5.1 mmol/L Chloride Level 101 98-107 mmol/L Carbon Dioxide Level 27 20-31 mmol/L Anion Gap 12 5-15 Blood Urea Nitrogen 36 H 9-23 mg/dL Creatinine 8.58 H 0.550-1.02 mg/dL Glomerular Filtration Rate Calc 5 >90 mL/min BUN/Creatinine Ratio 4.2 L 10.0-20.0 Serum Glucose 64 L 74-106 mg/dL Hemoglobin A1c 4.5 <5.7 % A1C Calcium Level 8.1 L 8.7-10.4 mg/dL Magnesium Level 2.3 1.6-2.6 mg/dL Total Bilirubin 0.4 0.2-1.0 mg/dL Aspartate Amino Transferase (AST) 25 13-40 U/L Alanine Aminotransferase (ALT) 9 7-40 U/L Alkaline Phosphatase 145 H 46-116 U/L C-Reactive Protein High Sensitivity 0.46 <1.0 mg/dL B-Type Natriuretic Peptide 1496.99 0-100 pg/mL Total Protein 6.3 5.7-8.2 g/dL Albumin 3.7 3.2-4.8 g/dL Vitamin B12 Level 1057 H 211-911 pg/mL Vitamin D 25-Hydroxy 22.0 L 30.0-100 ng/mL Folic Acid 12.98 >5.38 ng/mL Direct Bilirubin 0.2 <0.3 mg/dL Plasma/Serum Blood Alcohol < 3.0 <10 mg/dL Test 04/25/25 18:13 Range/Units Prothrombin Time 11.6 9.3-11.8 sec Prothrombin Time INR 1.11 0.9-1.15 Activated Partial Thromboplast Time 28.8 24.5-34.5 SEC Lactic Acid Level 1.1 0.4-2.0 mmol/L Ammonia 17 11-32 umol/L Troponin I High Sensitivity 20 </=34 ng/L Thyroid Stimulating Hormone (TSH) 1.41 0.55-4.78 uIU/mL Assessment ESRD on hemodialysis with [facility] for past 10 years Thursday//Thursday 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 Underwent hemodialysis 04/25 outpatient. 2100 taken out Plan: Given the ESRD, patient will be scheduled for hemodialysis 04/27. Administer seizure medications post hemodialysis. Neurology consultation appreciated, order Keppra levels Recommend abdominal imaging given possible ascites Continue calcium acetate TID WM IV antibiotics per primary team Supplemented vitamin-D Monitor H&H Patient does not make urine fluid restriction Renal diet Plan discussed with patient, partner at bedside in which all questions have been answered Case discussed with Dr. Hill Addendum Patient seen and examined, plan discussed with resident. Agree with above, we will follow closely Plan discussed with: Patient, Spouse HERIBERTO GUNDERSON RESIDENT Apr 26, 2025 12:44 FARRAH HILL MD Apr 26, 2025 17:42
[2025-04-26 14:01] LABS: COVID19 ANTIGEN SOFIA FIA NEGATIVE (NEGATIVE)
[2025-04-26] MEDS: DEXTROSE 10% 1,000 ML IV ONE (15:32)
--- NOTE | 2025-04-26 15:47 | DVHPNRES ---
Progress Note Date Seen: Apr 26, 2025 Resident Creating Document: DEEDEE,JUDITH RESIDENT Medical Necessity Reason Pt with a Central, PICC or Fol: No Subjective Review of Systems History of Present Illness Patient is 44 years old female with past medical history of hypertension, CHF, ESRD on hemodialysis Thursday//Thursday, seizure disorder, cirrhosis of liver, pulmonary hypertension, mitral valve and tricuspid valve 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 Patient with confusion, altered mental status, information was gathered from chart reviewing and talking with the nursing staff and patient's partner. Patient went for dialysis today but within 2 hours of dialysis patient started having altered mental status and confusion. patient was staring blankly at the wall and not responding to questions. 911 was called, on EMS arrival patient was able to answer some questions. Later on patient became unresponsive to question and unable to wake up. Patient with a history of seizure and as per dialysis center staff patient might have an absence seizure. Blood sugar was noted to be 73 and she was given 15 g of glucose. Initial lab workup revealed WBC 4.0, RDW 18.3, serum creatinine 7.16, BUN 32, troponin I within normal limit. CXR- Bilateral perihilar infiltrates. Sternal wire sutures in place. Atrial appendage clip visualized. Aortic valve prosthesis in place. 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 She had some per a speech difficulty likely due to previous stroke. She has no chest pain, shortness of breath, fever, chills or any other complaints at this time. She denies any history of head injury, recent trauma or infection. Review of systems: The patient was seen and examined at the bedside. ROS as per HPI, no new complaints reported. Rest of the ROS is negative. Objective vital signs Vital Sign Date Time Temp Pulse Resp B/P (MAP) Pulse Ox O2 Delivery O2 Flow Rate FiO2 7/9/25 14:20 98.0 60 20 143/81 (101) 96 98.0 04/26/25 09:53 Room Air* 0 21 medications Current Medications Medications Dose Ordered Sig/Elidia Route Start Time Stop Time Status Last Admin Dose Admin Ondansetron HCl 4 mg Q4HP PRN IV 04/25/25 21:30 Calcium Acetate 1,334 mg TIDWM PO 04/26/25 08:00 04/26/25 11:59 1,334 MG Hydralazine HCl 100 mg DAILY PO 04/26/25 10:00 Sildenafil Citrate 20 mg DAILY PO 04/26/25 10:00 04/26/25 10:50 20 MG Pantoprazole Sodium 40 mg DAILY@0600 PO 04/26/25 06:00 Diagnostic Test (Pha) 1 strip IQ4HR 04/26/25 00:00 04/26/25 11:59 1 STRIP Dextrose 50 ml UD PRN IV 04/25/25 21:30 Lactulose 30 ml BID PO 04/26/25 10:00 04/26/25 10:51 30 ML Levetiracetam 500 mg BID PO 04/26/25 10:00 04/26/25 10:50 500 MG Ceftriaxone Sodium 50 ml @ 100 mls/hr DAILY@2100 IV 04/26/25 21:00 Heparin Sodium (Porcine) 5,000 units Q12HR SC 04/26/25 10:00 Doxycycline Monohydrate 100 mg Q12HR PO 04/26/25 10:00 04/26/25 10:50 100 MG Ergocalciferol 50,000 unit Q7D PO 04/26/25 11:30 04/26/25 12:24 50,000 UNIT Examination Pt is lying on bed General Appearance: Alert, Oriented X3, Cooperative, Mild distress HEENT: Atraumatic, Mucous membranes moist/pink Extremities:Patient has a left upper arm fistula Respiratory: Clear to auscultation, Normal air movement, No added sounds Cardiovascular: Regular rate, Normal S1, Normal S2, No murmurs Abdominal/ : Mild tenderness noted on the right hypochondriac and umbilical region. Active bowel sounds, Soft, no distention. Skin: No Significant rash, except past surgical scars Neuro: Normal speech, sensorimotor deficits none Psych/Mental Status: Mental status NL, Mood NL Nurse was there as residential field manager during examination laboratory and microbiology Laboratory Tests 04/26/25 08:38 Test 04/26/25 08:38 Range/Units Serum Glucose 64 L 74-106 mg/dL Labs and/or images reviewed: Labs reviewed by me, Image(s) reviewed by me Problem List/Assessment/Plan Problem List/Assessment/Plan #Metabolic encephalopathy likely due to uremic encephalopathy/hypoglycemia -blood sugar 73 -patient on hemodialysis due to ESRD on Thursday//Thursday -pending blood culture, urine culture -nephrology on board -head CT negative #Pneumonia due to Gram-positive or Gram-negative organism Chest x-ray: Bilateral perihilar infiltrates. Lactic acid 3.9 Ceftriaxone, doxycycline started # ESRD on hemodialysis Thursday//Thursday -hemodialysis tomorrow as per Nephrology recommendation monitor labs # hypertension -hydralazine 100 mg p.o. daily - monitor # hypoglycemia -status post 25% dextrose -monitor blood sugar level as prescribed # h/o CHF not in exacerbation #Vitamin-D deficiency [place] 58974 units ergocalciferol # liver cirrhosis -ammonia within normal limit -lactulose 30 mL p.o. b.i.d. -monitor ammonia level #Seizure disorder -continue Keppra 500 mg p.o. b.i.d. -pending neurology consult # severe pulmonary hypertension -continue sildenafil 20 mg p.o. daily # history of mitral and tricuspid valve repair -follow up with the Cardiology outpatient # history of CVA -CTA negative for acute intracranial abnormality GI prophylaxis: Protonix DVT prophylaxis: Heparin Diet: Renal diet Goals of care discussed with the patient for more than 27 minutes: Full code status Case discussed with Cassie Saldaña, patient and RN Plan discussed with: Patient (rn) Date of Service: Apr 26, 2025 Billing Provider: JEROME VALERIO MD Common Visit Codes: [id number] INP/OBS CARE(HIGH) JUDITH MARK Apr 26, 2025 15:47 JEROME VALERIO MD Apr 26, 2025 23:20
[2025-04-26 17:48] VITALS: BP 138/87; PULSE 59; RESP 16; TEMP 98.5; O2SAT 96
[2025-04-26 17:49] VITALS: BP 138/87; PULSE 59; RESP 16; TEMP 98.5; O2SAT 96
[2025-04-26 20:00] VITALS: PULSE 59
[2025-04-26] MEDS ORDERED: LORazepam 0.5 MG TAB PO PRN (20:30)
[2025-04-26] MEDS ORDERED: LORazepam 2MG/ML-1ML VIAL IV PRN (20:30)
--- NOTE | 2025-04-26 20:42 | DVH ---
INDICATION: Abdominal distention TECHNIQUE: Multiple real-time sonographic images of the abdomen were obtained. COMPARISON: None FINDINGS: The liver measures 18 cm in diameter with increased echogenicity micronodular contour. No intrahepatic biliary ductal dilatation is noted. The gallbladder wall measures 0.3 cm and is unremarkable. The gallbladder is contracted with No gall stones or sludge is seen. The common duct measures 0.3 cm cm and is unremarkable. No pericholecysti c fluid is noted. Negative sonographic andrew's sign. The right kidney measures 7.7 cm. No hydronephrosis. The left kidney measures 7.7 cm. No hydronephr osis. Increased bilateral renal cortical echogenicity. The spleen measures 12.9 cm. The echogenicity is within normal limits. The pancreas is partially obscured by bowel gas bowel gas. The visualized portions of the IVC and aorta are grossly unremarkable. Small to moderate ascites is noted. IMPRESSION: Cirrhotic appearing liver mild splenomegaly small to moderate ascites. [id number] atrophy of the kidneys with increased cortical echogenicity which may be seen with m edical renal disease.
[2025-04-26 21:00] VITALS: BP 123/77; PULSE 61; RESP 21; TEMP 98.1; O2SAT 94
[2025-04-26 21:41] LABS: Triglycerides 82 mg/dL (< 150)
[2025-04-26 21:43] LABS: Cholesterol 148 mg/dL (< 200)
[2025-04-26 21:44] LABS: HDL Cholesterol 60 mg/dL (40-59)
[2025-04-26] MEDS: cefTRIAXone 1GM/50ML D5W 50 ML IV SCH (21:58)
[2025-04-27 01:00] VITALS: BP 127/80; PULSE 57; RESP 18; TEMP 98.2; O2SAT 94
[2025-04-27] MEDS: ONDANSETRON HCL 4 MG/2 ML VIAL IV PRN (02:41)
[2025-04-27 05:00] VITALS: BP 114/72; PULSE 56; RESP 15; TEMP 97.6; O2SAT 93
[2025-04-27 06:29] LABS: Hematocrit 37.9 % (36.0-46.0); Hemoglobin 12.6 g/dL (12.2-16.2); Mean Corpuscular Hemoglobin 29.4 pg (28.0-32.0); Mean Corpuscular Volume 88.4 fL (80.0-100.0); Nucleated Red Blood Cells % 0.3 %
[2025-04-27 06:47] LABS: Anion Gap 13 (5-15); BUN/Creatinine Ratio 4.6 (10.0-20.0); Carbon Dioxide 24 mmol/L (20-31); Chloride 98 mmol/L (98-107); Glucose 88 mg/dL (74-106); Potassium 4.8 mmol/L (3.5-5.1); Total Protein 5.8 g/dL (5.7-8.2)
[2025-04-27 06:48] LABS: Albumin 3.4 g/dL (3.2-4.8); Bilirubin, Total 0.3 mg/dL (0.2-1.0)
[2025-04-27 06:52] LABS: Alanine Aminotransferase 9 U/L (7-40); Alkaline Phosphatase 138 U/L (46-116); Blood Urea Nitrogen 44 mg/dL (9-23); Calcium 7.2 mg/dL (8.7-10.4); Sodium 135 mmol/L (136-145)
--- NOTE | 2025-04-27 07:42 | DVHPNRES ---
Progress Note Date Seen: Apr 27, 2025 Resident Creating Document: DEEDEEJUDITH RESIDENT Medical Necessity Reason Pt with a Central, PICC or Fol: No Subjective Review of Systems Review of Systems History of Present Illness Patient is 44 years old female with past medical history of hypertension, CHF, ESRD on hemodialysis Thursday//Thursday, seizure disorder, cirrhosis of liver, pulmonary hypertension, mitral valve and tricuspid valve 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 Patient with confusion, altered mental status, information was gathered from chart reviewing and talking with the nursing staff and patient's partner. Patient went for dialysis today but within 2 hours of dialysis patient started having altered mental status and confusion. patient was staring blankly at the wall and not responding to questions. 911 was called, on EMS arrival patient was able to answer some questions. Later on patient became unresponsive to question and unable to wake up. Patient with a history of seizure and as per dialysis center staff patient might have an absence seizure. Blood sugar was noted to be 73 and she was given 15 g of glucose. Initial lab workup revealed WBC 4.0, RDW 18.3, serum creatinine 7.16, BUN 32, troponin I within normal limit. CXR- Bilateral perihilar infiltrates. Sternal wire sutures in place. Atrial appendage clip visualized. Aortic valve prosthesis in place. 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 She had some per a speech difficulty likely due to previous stroke. She has no chest pain, shortness of breath, fever, chills or any other complaints at this time. She denies any history of head injury, recent trauma or infection. Review of systems: The patient was seen and examined at the bedside. ROS as per HPI, no new complaints reported. Rest of the ROS is negativ Patient reports: Feels better Objective vital signs Vital Sign Date Time Temp Pulse Resp B/P (MAP) Pulse Ox O2 Delivery O2 Flow Rate FiO2 04/27/25 05:00 97.6 56 15 114/72 (86) 93 97.6 04/26/25 20:00 Room Air* 0 21 Total Intake and Output 04/26/25 04/26/25 04/27/25 15:00 23:00 07:00 Intake Total 50 ml 400 ml Balance 50 ml 400 ml medications Current Medications Medications Dose Ordered Sig/Elidia Route Start Time Stop Time Status Last Admin Dose Admin Ondansetron HCl 4 mg Q4HP PRN IV 04/25/25 21:30 04/27/25 02:41 4 MG Calcium Acetate 1,334 mg TIDWM PO 04/26/25 08:00 04/26/25 18:35 1,334 MG Hydralazine HCl 100 mg DAILY PO 04/26/25 10:00 Sildenafil Citrate 20 mg DAILY PO 04/26/25 10:00 04/26/25 10:50 20 MG Pantoprazole Sodium 40 mg DAILY@0600 PO 04/26/25 06:00 Diagnostic Test (Pha) 1 strip IQ4HR 04/26/25 00:00 04/27/25 05:05 1 STRIP Dextrose 50 ml UD PRN IV 04/25/25 21:30 Lactulose 30 ml BID PO 04/26/25 10:00 04/26/25 21:57 30 ML Levetiracetam 500 mg BID PO 04/26/25 10:00 04/26/25 21:58 500 MG Ceftriaxone Sodium 50 ml @ 100 mls/hr DAILY@2100 IV 04/26/25 21:00 04/26/25 21:58 100 MLS/HR Heparin Sodium (Porcine) 5,000 units Q12HR SC 04/26/25 10:00 Doxycycline Monohydrate 100 mg Q12HR PO 04/26/25 10:00 04/26/25 21:58 100 MG Ergocalciferol 50,000 unit Q7D PO 04/26/25 11:30 04/26/25 12:24 50,000 UNIT Lorazepam 1 mg ONCE PRN IV 04/26/25 20:30 Lorazepam 1 mg Q5MINP PRN IV 04/26/25 20:30 Lorazepam 0.5 mg Q8HP PRN PO 04/26/25 20:30 Aspirin 81 mg DAILY PO 04/27/25 10:00 laboratory and microbiology Laboratory Tests 04/27/25 05:37 Test 04/27/25 05:37 Range/Units Serum Glucose 88 74-106 mg/dL Labs and/or images reviewed: Labs reviewed by me, Image(s) reviewed by me Problem List/Assessment/Plan Problem List/Assessment/Plan #Metabolic encephalopathy likely due to uremic encephalopathy/hypoglycemia -blood sugar 73 -patient on hemodialysis due to ESRD on Thursday//Thursday -pending blood culture, urine culture -nephrology on board -head CT negative #Pneumonia due to Gram-positive or Gram-negative organism Chest x-ray: Bilateral perihilar infiltrates. Lactic acid 3.9 Ceftriaxone, doxycycline started # ESRD on hemodialysis Thursday//Thursday -hemodialysis tomorrow as per Nephrology recommendation monitor labs # hypertension -hydralazine 100 mg p.o. daily - monitor # hypoglycemia -status post 25% dextrose -monitor blood sugar level as prescribed # h/o CHF not in exacerbation #Vitamin-D deficiency Treated with 92442 units ergocalciferol # liver cirrhosis -ammonia within normal limit -lactulose 30 mL p.o. b.i.d. -monitor ammonia level #Seizure disorder -continue Keppra 500 mg p.o. b.i.d. -pending neurology consult # severe pulmonary hypertension -continue sildenafil 20 mg p.o. daily # history of mitral and tricuspid valve repair -follow up with the Cardiology outpatient # history of CVA -CTA negative for acute intracranial abnormality GI prophylaxis: Protonix DVT prophylaxis: Heparin Diet: Renal diet Goals of care discussed with the patient for more than 27 minutes: Full code status Case discussed with Cassie Saldaña, patient and RN Plan discussed with: Patient, Other (RN) My Orders My Orders Orders - JUDITH MARK Procedure Category Date Status Time Abdomen Complete US 04/26/25 Resulted Sonogram 18:01 * Nuclear Control Operator CONS 04/26/25 Transmitted Consult JUDITH MARK Apr 27, 2025 07:42 JEROME VALERIO MD Apr 28, 2025 10:49
[2025-04-27 08:00] VITALS: PULSE 53
[2025-04-27 08:45] VITALS: BP 106/73; PULSE 54; RESP 17; TEMP 98.3; O2SAT 95
[2025-04-27] MEDS ORDERED: SODIUM CHL 0.9% 1000 ML BAG XX ONE (08:45)
--- NOTE | 2025-04-27 09:42 | DVHDSRES ---
Discharge Summary Date of Admission Resident Creating Document: JUDITH MARK Apr 25, 2025 at 21:22 Admitting Diagnosis Confusion due to possible uremic encephalopathy/hypoglycemia Labs/Diagnostic Data: Laboratory Results Test 04/27/25 08:52 04/27/25 05:37 04/26/25 12:23 04/26/25 08:38 POC Glucose 70 mg/dl (70-106) White Blood Count 4.4 10^3/uL (4.4-10.8) Red Blood Count 4.29 10^6/uL (4.0-5.20) Hemoglobin 12.6 g/dL (12.2-16.2) Hematocrit 37.9 % (36.0-46.0) Mean Corpuscular Volume 88.4 fL (80.0-100.0) Mean Corpuscular Hemoglobin 29.4 pg (28.0-32.0) Mean Corpuscular Hemoglobin Concent 33.3 g/dL (32.0-36.0) Red Cell Distribution Width 18.4 % (11.8-14.3) Platelet Count 154 10^3/uL (140-450) Mean Platelet Volume 8.7 fL (6.9-10.8) Neutrophils (%) (Auto) 55.9 % (37.0-80.0) Lymphocytes (%) (Auto) 24.4 % (10.0-50.0) Monocytes (%) (Auto) 13.4 % (0.0-12.0) Eosinophils (%) (Auto) 4.3 % (0.0-7.0) Basophils (%) (Auto) 2.0 % (0.0-2.0) Neutrophils # (Auto) 2.5 10 ^3/uL (1.6-8.6) Lymphocytes # (Auto) 1.1 10 ^3/uL (0.4-5.4) Monocytes # (Auto) 0.6 10 ^3/uL (0-1.3) Eosinophils # (Auto) 0.2 10 ^3/uL (0-0.8) Basophils # (Auto) 0.1 10 ^3/uL (0-0.2) Nucleated Red Blood Cells 0.3 % Sodium Level 135 mmol/L (136-145) Potassium Level 4.8 mmol/L (3.5-5.1) Chloride Level 98 mmol/L (98-107) Carbon Dioxide Level 24 mmol/L (20-31) Anion Gap 13 (5-15) Blood Urea Nitrogen 44 mg/dL (9-23) Creatinine 9.61 mg/dL (0.550-1.02) Glomerular Filtration Rate Calc 5 mL/min (>90) BUN/Creatinine Ratio 4.6 (10.0-20.0) Serum Glucose 88 mg/dL (74-106) Calcium Level 7.2 mg/dL (8.7-10.4) Total Bilirubin 0.3 mg/dL (0.2-1.0) Aspartate Amino Transferase (AST) 23 U/L (13-40) Alanine Aminotransferase (ALT) 9 U/L (7-40) Alkaline Phosphatase 138 U/L (46-116) Total Protein 5.8 g/dL (5.7-8.2) Albumin 3.4 g/dL (3.2-4.8) Influenza Type A Antigen Negative (Negative) Influenza Type B Antigen Negative (Negative) SARS-CoV-2 Antigen (Rapid) Negative (NEGATIVE) Hemoglobin A1c 4.5 % A1C (<5.7) Phosphorus Level 7.0 mg/dL (2.4-5.1) Magnesium Level 2.3 mg/dL (1.6-2.6) C-Reactive Protein High Sensitivity 0.46 mg/dL (<1.0) B-Type Natriuretic Peptide 1496.99 pg/mL (0-100) Triglycerides Level 82 mg/dL (< 150) Cholesterol Level 148 mg/dL (< 200) LDL Cholesterol 69 mg/dL (< 100) HDL Cholesterol 60 mg/dL (40-59) Vitamin B12 Level 1057 pg/mL (211-911) Vitamin D 25-Hydroxy 22.0 ng/mL (30.0-100) Folic Acid 12.98 ng/mL (>5.38) Parathyroid Hormone (Intact) 1731.2 pg/mL (18.4-80.1) Test 04/25/25 20:47 04/25/25 18:13 Direct Bilirubin 0.2 mg/dL (<0.3) Plasma/Serum Blood Alcohol < 3.0 mg/dL (<10) Prothrombin Time 11.6 sec (9.3-11.8) Prothrombin Time INR 1.11 (0.9-1.15) Activated Partial Thromboplast Time 28.8 SEC (24.5-34.5) Lactic Acid Level 1.1 mmol/L (0.4-2.0) Ammonia 17 umol/L (11-32) Troponin I High Sensitivity 20 ng/L (</=34) Thyroid Stimulating Hormone (TSH) 1.41 uIU/mL (0.55-4.78) Other Laboratory Tests 04/27/25 05:37 Discharge Instruct/Medications Scheduled Aspirin (Aspirin Low Dose), 81 MG PO DAILY, (Reported) Calcium Acetate (Phosphate Bin (Calcium Acetate), 1,334 MG PO TIDWM, (Reported) Clindamycin Hcl (Cleocin), 300 MG PO TID Doxycycline (Monohydrate) (Doxycycline), 100 MG PO BID Hydralazine Hcl (Hydralazine Hcl), 1 TAB PO DAILY, (Reported) Lorazepam (Ativan Tablet), 1 TAB PO DAILY Midodrine Hcl (Midodrine Hcl), 10 MG PO BID Sildenafil Citrate (Pulmonary (Revatio), 20 MG PO DAILY Scheduled PRN Albuterol Sulfate (Ventolin Mdi), 90 MCG IN Q4HR PRN Clonidine Hcl (Urqqpmpe-Edm-2 Patch), 0.1 MG TD for SBP>150, (Reported) Hydrocodone-Acetaminophen (Hydrocodone Bitartrate/AC 5-325 mg), 1 TAB PO BIDPRN PRN for PAIN, (Reported) Discharge Statement: "Patient was advised to return to the ER or call 911 if any headaches, dizziness, shortness of breath, chest pain, abdominal pain, bleeding, fevers, or worsening of medical condition. Patient was counseled about treatment plan, medications, possible side effects, patientverbalized understanding. All questions were answered to the best of my ability. This discharge took greater then 30 minutes in planning, reviewing documentation, counseling the patient, and discussing with other team members." ASSESSMENT ASSESSMENT Assessment JUDITH MARK RESIDENT Apr 27, 2025 09:42
--- NOTE | 2025-04-27 09:54 | DVHDSRES ---
Discharge Summary Date of Admission Resident Creating Document: JUDITH MARK Apr 25, 2025 at 21:22 Date of Discharge: Apr 27, 2025 Admitting Diagnosis Confusion due to possible uremic encephalopathy/hypoglycemia Labs/Diagnostic Data: Laboratory Results Test 04/27/25 08:52 04/27/25 05:37 04/26/25 12:23 04/26/25 08:38 POC Glucose 70 mg/dl (70-106) White Blood Count 4.4 10^3/uL (4.4-10.8) Red Blood Count 4.29 10^6/uL (4.0-5.20) Hemoglobin 12.6 g/dL (12.2-16.2) Hematocrit 37.9 % (36.0-46.0) Mean Corpuscular Volume 88.4 fL (80.0-100.0) Mean Corpuscular Hemoglobin 29.4 pg (28.0-32.0) Mean Corpuscular Hemoglobin Concent 33.3 g/dL (32.0-36.0) Red Cell Distribution Width 18.4 % (11.8-14.3) Platelet Count 154 10^3/uL (140-450) Mean Platelet Volume 8.7 fL (6.9-10.8) Neutrophils (%) (Auto) 55.9 % (37.0-80.0) Lymphocytes (%) (Auto) 24.4 % (10.0-50.0) Monocytes (%) (Auto) 13.4 % (0.0-12.0) Eosinophils (%) (Auto) 4.3 % (0.0-7.0) Basophils (%) (Auto) 2.0 % (0.0-2.0) Neutrophils # (Auto) 2.5 10 ^3/uL (1.6-8.6) Lymphocytes # (Auto) 1.1 10 ^3/uL (0.4-5.4) Monocytes # (Auto) 0.6 10 ^3/uL (0-1.3) Eosinophils # (Auto) 0.2 10 ^3/uL (0-0.8) Basophils # (Auto) 0.1 10 ^3/uL (0-0.2) Nucleated Red Blood Cells 0.3 % Sodium Level 135 mmol/L (136-145) Potassium Level 4.8 mmol/L (3.5-5.1) Chloride Level 98 mmol/L (98-107) Carbon Dioxide Level 24 mmol/L (20-31) Anion Gap 13 (5-15) Blood Urea Nitrogen 44 mg/dL (9-23) Creatinine 9.61 mg/dL (0.550-1.02) Glomerular Filtration Rate Calc 5 mL/min (>90) BUN/Creatinine Ratio 4.6 (10.0-20.0) Serum Glucose 88 mg/dL (74-106) Calcium Level 7.2 mg/dL (8.7-10.4) Total Bilirubin 0.3 mg/dL (0.2-1.0) Aspartate Amino Transferase (AST) 23 U/L (13-40) Alanine Aminotransferase (ALT) 9 U/L (7-40) Alkaline Phosphatase 138 U/L (46-116) Total Protein 5.8 g/dL (5.7-8.2) Albumin 3.4 g/dL (3.2-4.8) Influenza Type A Antigen Negative (Negative) Influenza Type B Antigen Negative (Negative) SARS-CoV-2 Antigen (Rapid) Negative (NEGATIVE) Hemoglobin A1c 4.5 % A1C (<5.7) Phosphorus Level 7.0 mg/dL (2.4-5.1) Magnesium Level 2.3 mg/dL (1.6-2.6) C-Reactive Protein High Sensitivity 0.46 mg/dL (<1.0) B-Type Natriuretic Peptide 1496.99 pg/mL (0-100) Triglycerides Level 82 mg/dL (< 150) Cholesterol Level 148 mg/dL (< 200) LDL Cholesterol 69 mg/dL (< 100) HDL Cholesterol 60 mg/dL (40-59) Vitamin B12 Level 1057 pg/mL (211-911) Vitamin D 25-Hydroxy 22.0 ng/mL (30.0-100) Folic Acid 12.98 ng/mL (>5.38) Parathyroid Hormone (Intact) 1731.2 pg/mL (18.4-80.1) Test 04/25/25 20:47 04/25/25 18:13 Direct Bilirubin 0.2 mg/dL (<0.3) Plasma/Serum Blood Alcohol < 3.0 mg/dL (<10) Prothrombin Time 11.6 sec (9.3-11.8) Prothrombin Time INR 1.11 (0.9-1.15) Activated Partial Thromboplast Time 28.8 SEC (24.5-34.5) Lactic Acid Level 1.1 mmol/L (0.4-2.0) Ammonia 17 umol/L (11-32) Troponin I High Sensitivity 20 ng/L (</=34) Thyroid Stimulating Hormone (TSH) 1.41 uIU/mL (0.55-4.78) Other Laboratory Tests 04/27/25 05:37 Brief Hx & Hospital Course: Patient is 44 years old female with past medical history of hypertension, CHF, ESRD on hemodialysis Thursday//Thursday, seizure disorder, cirrhosis of liver, pulmonary hypertension, mitral valve and tricuspid valve 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 Patient with confusion, altered mental status, information was gathered from chart reviewing and talking with the nursing staff and patient's partner. Patient went for dialysis today but within 2 hours of dialysis patient started having altered mental status and confusion. patient was staring blankly at the wall and not responding to questions. Patient required hospital admission for further evaluation and management of encephalopathy. Head CT showed no acute changes, consulted Neurology advised MRI which showed no acute changes. Chest x-ray reveals bilateral perihilar infiltrates, findings suggestive of pneumonia for which Ceftriaxone doxycycline was started. Abdominal ultrasound showed cirrhotic liver and ascites. Nephrology was consulted , her dialysis was resumed today according to the consultation, patient continued home medications and her hypertension was managed with hydralazine. Today patient condition was improved, hemodynamically stable and in condition to discharge home. During discharge the patient was hemodynamically stable, the patient's abdominal pain improved. The discharge plan was discussed with the patient at patient verbalized understanding. Patient was advised about healthy lifestyle modifications including diet and exercise and advised to follow up with PCP and Nephrology. Discharged with doxycycline along with resuming home medications Pt is lying on bed General Appearance: Alert, Oriented X3, Cooperative, Mild distress HEENT: Atraumatic, Mucous membranes moist/pink Respiratory: Clear to auscultation, Normal air movement, No added sounds Cardiovascular: Regular rate, Normal S1, Normal S2, No murmurs Abdominal/ : Active bowel sounds, Soft, no distention, no tenderness Extremities: No edema, Normal pulses, No tenderness/swelling accept dialysis fistula left upeer arm Skin: No Significant rash, except past surgical scars Neuro: Normal speech, sensorimotor deficits none Psych/Mental Status: Mental status NL, Mood NL Nurse was there as machine plaster mixer during examination Operations or Procedures Abdominal ultrasound: Cirrhotic appearing liver mild splenomegaly small to moderate ascites. [id number] atrophy of the kidneys with increased cortical echogenicity which may be seen with medical renal disease. Head CT: 1. No acute intracranial abnormality. CXR 1. Bilateral perihilar infiltrates. 2. Sternal wire sutures in place. 3. Atrial appendage clip visualized. 4. Aortic valve prosthesis in place. Condition at Discharge: Stable Final Diagnosis/Problems List Metabolic encephalopathy likely due to uremic encephalopathy/hypoglycemia Pneumonia due to Gram-positive or Gram-negative organisms ESRD on hemodialysis TTS Hypertension Hypoglycemia History of CHF not in exacerbation Vitamin-D deficiency Liver cirrhosis Seizure disorder Severe pulmonary hypertension History of mitral and tricuspid valve repair Discharge Disposition: Home Discharge Instruct/Medications Scheduled Aspirin (Aspirin Low Dose), 81 MG PO DAILY, (Reported) Calcium Acetate (Phosphate Bin (Calcium Acetate), 1,334 MG PO TIDWM, (Reported) Clindamycin Hcl (Cleocin), 300 MG PO TID Doxycycline (Monohydrate) (Doxycycline), 100 MG PO BID Hydralazine Hcl (Hydralazine Hcl), 1 TAB PO DAILY, (Reported) Lorazepam (Ativan Tablet), 1 TAB PO DAILY Midodrine Hcl (Midodrine Hcl), 10 MG PO BID Sildenafil Citrate (Pulmonary (Revatio), 20 MG PO DAILY Scheduled PRN Albuterol Sulfate (Ventolin Mdi), 90 MCG IN Q4HR PRN Clonidine Hcl (Ihniexgi-Goa-0 Patch), 0.1 MG TD for SBP>150, (Reported) Hydrocodone-Acetaminophen (Hydrocodone Bitartrate/AC 5-325 mg), 1 TAB PO BIDPRN PRN for PAIN, (Reported) Discharge Statement: "Patient was advised to return to the ER or call 911 if any headaches, dizziness, shortness of breath, chest pain, abdominal pain, bleeding, fevers, or worsening of medical condition. Patient was counseled about treatment plan, medications, possible side effects, patientverbalized understanding. All questions were answered to the best of my ability. This discharge took greater then 30 minutes in planning, reviewing documentation, counseling the patient, and discussing with other team members." ASSESSMENT ASSESSMENT Assessment Date of Service: Apr 27, 2025 Billing Provider: JEROME VALERIO MD Common Visit Codes: 92541-DLX/OBS DISCH DAY >30min JUDITH MARK RESIDENT Apr 27, 2025 09:54 SUSAN CORDERO RESIDENT Apr 27, 2025 17:47 JEROME VALERIO MD Apr 28, 2025 10:50
--- NOTE | 2025-04-27 10:03 | DVHPN2 ---
Progress Note - Dictate Date Seen: Apr 27, 2025 Medical Necessity Reason Pt with a Central, PICC or Fol: No Subjective Ms. Malik is a 44 years old right-handed female with a history of hypertension, stroke, end-stage renal failure on hemodialysis, anxiety, she came to [facility] on 04/25/2025 with a chief complaint of altered mental status, I saw on 10/10/2018 for seizure. I saw her briefly my office in 2019 I have seen and examined the patient, I have talked to her nurse, she is awake, oriented to person, place, she knows year and the month,, and comfortable, no seizure activity Keppra level 20 CBC, 04/26/2025: Unremarkable BUN/CR, 04/26/2025: 36/8.58 GFR, 04/26/2025: Five HGB A1c, 04/26/2025: 4.5 Liver function tests, 04/25/2025: Normal TG/HDL/LDL/HDL, 04/26/2025: 82/148/69/60 Vitamin B12, 04/26/2025: 1057 Folic acid, 04/26/2025: 12.98 TSH, 04/25/2025: 1.41 TG/HDL/LDL/HDL, 10/11/21: 31/110/44/56 CT head, 10/08/18: 5 mm ill-defined hypodense focus in the left frontal subcortical white matter, new compared to prior study 01/16/2010. Finding is nonspecific, and could represent a seizure focus or small mass. Early chronic microvascular ischemic changes or even atypical demyelination also can have this appearance. MRI is recommended. No acute hemorrhage. No other acute intracranial findings. CT head, 02/17/2023: No acute intracranial hemorrhage, extra-axial fluid collection, mass effect, or large transterritorial infarct (I have reviewed the films, I did not see changes consistent with acute/chronic stroke) CT head, 04/25/2025: No acute intracranial abnormality (Chronic encephalomalacia in the left frontal parietal lobe, likely from remote infarct) MRI head, 10/11/2018: No evidence of acute intracranial pathology vital signs Vital Sign Date Time Temp Pulse Resp B/P (MAP) Pulse Ox O2 Delivery O2 Flow Rate FiO2 04/27/25 08:45 98.3 54 17 106/73 (84) 95 98.3 04/26/25 20:00 Room Air* 0 21 Total Intake and Output 04/26/25 04/26/25 04/27/25 15:00 23:00 07:00 Intake Total 50 ml 400 ml Balance 50 ml 400 ml medications Current Medications Medications Dose Ordered Sig/Elidia Route Start Time Stop Time Status Last Admin Dose Admin Ondansetron HCl 4 mg Q4HP PRN IV 04/25/25 21:30 04/27/25 02:41 4 MG Calcium Acetate 1,334 mg TIDWM PO 04/26/25 08:00 04/27/25 09:30 1,334 MG Hydralazine HCl 100 mg DAILY PO 04/26/25 10:00 Sildenafil Citrate 20 mg DAILY PO 04/26/25 10:00 04/26/25 10:50 20 MG Pantoprazole Sodium 40 mg DAILY@0600 PO 04/26/25 06:00 Diagnostic Test (Pha) 1 strip IQ4HR 04/26/25 00:00 04/27/25 08:00 1 STRIP Dextrose 50 ml UD PRN IV 04/25/25 21:30 Lactulose 30 ml BID PO 04/26/25 10:00 04/26/25 21:57 30 ML Levetiracetam 500 mg BID PO 04/26/25 10:00 04/26/25 21:58 500 MG Ceftriaxone Sodium 50 ml @ 100 mls/hr DAILY@2100 IV 04/26/25 21:00 04/26/25 21:58 100 MLS/HR Heparin Sodium (Porcine) 5,000 units Q12HR SC 04/26/25 10:00 Doxycycline Monohydrate 100 mg Q12HR PO 04/26/25 10:00 04/26/25 21:58 100 MG Ergocalciferol 50,000 unit Q7D PO 04/26/25 11:30 04/26/25 12:24 50,000 UNIT Lorazepam 1 mg ONCE PRN IV 04/26/25 20:30 Lorazepam 1 mg Q5MINP PRN IV 04/26/25 20:30 Lorazepam 0.5 mg Q8HP PRN PO 04/26/25 20:30 Aspirin 81 mg DAILY PO 04/27/25 10:00 04/27/25 09:31 81 MG objective General: the patient is well developed and nourished. No acute distress. MENTAL STATUS: Subjective SPEECH, LANGUAGE, HIGHER CORTICAL FUNCTION: Mild expressive aphasia, dysarthria CRANIAL NERVES: Pupils are equal, round and reactive. EOMs full and conjugate. No nystagmus. Facial sensation intact in all three divisions bilaterally. Mandibular strength intact. Facial muscles symmetrical and strength intact. SENSATION: Sensation to touch and pinprick is normal. MOTOR: Normal tone in the upper and lower extremity. Normal muscle bulk. No fasciculations. No abnormal movements or posturing. Muscle strength of the major groups in the extremities is 5/5. REFLEXES: Deep tendon reflexes normal and symmetrical. No pathological reflexes. CEREBELLAR/COORDINATION: Finger to nose is normal bilaterally. GAIT/STATION: deferred. laboratory and microbiology Laboratory Tests 04/27/25 05:37 Test 04/27/25 05:37 Range/Units Serum Glucose 88 74-106 mg/dL Problem List Altered mental status on 04/25/2025 ? Metabolic encephalopathy ? Seizure Other central nervous system acute pathology Generalized tonic-clonic seizure, with atypical features Reported stroke Left hemisphere mass lesion status post craniotomy in 07/2024 Anxiety Assessment/Plan Monitoring Supportive treatment UDS EEG MRI brain scan Keppra 500 mg b.i.d. Ativan for seizure breakthrough Ativan for anxiety Aspirin 81 mg daily DVT prophylaxis Nephrology on case Follow-up with her doctors on discharge More recommendation per clinical course This medical document was created using an electronic medical record system with [employer] dictation system. Although this document has been carefully reviewed, there may still be some phonetic and typographical errors. These areas are purely typographical due to imperfections of the software programs, and do not reflect any compromise in the patient's medical care. Prognosis poor Plan discussed with: Patient, Other Critical Care Time(min): 30 BELLA BOYER MD Apr 27, 2025 10:03
[2025-04-27 13:00] VITALS: BP 141/79; PULSE 59; RESP 16; TEMP 98.1; O2SAT 99
--- NOTE | 2025-04-27 13:14 | DVHPN2 ---
Progress Note Date Seen: Apr 27, 2025 Medical Necessity Reason Pt with a Central, PICC or Fol: No Subjective Patient reports: No new complaints Review of Systems: Deferred Objective vital signs Vital Sign Date Time Temp Pulse Resp B/P (MAP) Pulse Ox O2 Delivery O2 Flow Rate FiO2 04/27/25 08:45 98.3 54 17 106/73 (84) 95 98.3 04/26/25 20:00 Room Air* 0 21 Total Intake and Output 04/26/25 04/26/25 04/27/25 15:00 23:00 07:00 Intake Total 50 ml 400 ml Balance 50 ml 400 ml medications Current Medications Medications Dose Ordered Sig/Elidia Route Start Time Stop Time Status Last Admin Dose Admin Ondansetron HCl 4 mg Q4HP PRN IV 04/25/25 21:30 04/27/25 02:41 4 MG Calcium Acetate 1,334 mg TIDWM PO 04/26/25 08:00 04/27/25 09:30 1,334 MG Hydralazine HCl 100 mg DAILY PO 04/26/25 10:00 Sildenafil Citrate 20 mg DAILY PO 04/26/25 10:00 04/26/25 10:50 20 MG Pantoprazole Sodium 40 mg DAILY@0600 PO 04/26/25 06:00 Diagnostic Test (Pha) 1 strip IQ4HR 04/26/25 00:00 04/27/25 08:00 1 STRIP Dextrose 50 ml UD PRN IV 04/25/25 21:30 Lactulose 30 ml BID PO 04/26/25 10:00 04/26/25 21:57 30 ML Levetiracetam 500 mg BID PO 04/26/25 10:00 04/26/25 21:58 500 MG Ceftriaxone Sodium 50 ml @ 100 mls/hr DAILY@2100 IV 04/26/25 21:00 04/26/25 21:58 100 MLS/HR Heparin Sodium (Porcine) 5,000 units Q12HR SC 04/26/25 10:00 Doxycycline Monohydrate 100 mg Q12HR PO 04/26/25 10:00 04/26/25 21:58 100 MG Ergocalciferol 50,000 unit Q7D PO 04/26/25 11:30 04/26/25 12:24 50,000 UNIT Lorazepam 1 mg ONCE PRN IV 04/26/25 20:30 Lorazepam 1 mg Q5MINP PRN IV 04/26/25 20:30 Lorazepam 0.5 mg Q8HP PRN PO 04/26/25 20:30 Aspirin 81 mg DAILY PO 04/27/25 10:00 04/27/25 09:31 81 MG laboratory and microbiology Laboratory Tests 04/27/25 05:37 Test 04/27/25 05:37 Range/Units Serum Glucose 88 74-106 mg/dL Microbiology Date/Time Source Procedure Growth Status 04/26/25 08:38 Blood Blood Culture - Preliminary NO GROWTH AFTER 24 HOURS OF INCUBATION. Resulted Problem List/Assessment/Plan Problem List/Assessment/Plan ESRD on hemodialysis Thursday//Thursday Active seizure-like episodes History of seizure disorder History of cirrhosis Questionable history of congestive heart failure History of multiple CVA History of intracranial brain mass Secondary hyperparathyroidism Vitamin-D deficiency recs HD today Neuro eval ongoing HD dosing of meds Plan discussed with: Patient My Orders My Orders Orders - FARRAH HILL MD Procedure Category Date Status Time Hemodialysis Orders ORDERS 04/27/25 Transmitted 08:37 Dialysis Nursing [id number] 04/27/25 In Process Message 08:37 Document Fluid Input [id number] 04/27/25 In Process And Outpu 08:37 Hepatitis B Surface LAB 04/27/25 In Process Antibody 09:23 Hepatitis B Surface LAB 04/27/25 In Process Antigen 09:23 FARRAH HILL MD Apr 27, 2025 13:14
[2025-04-27] MEDS ORDERED: DOXY1CAP58 PO (13:58)
[2025-04-27] MEDS: LORazepam 2MG/ML-1ML VIAL IV PRN (14:35)
--- NOTE | 2025-04-27 15:15 | DVH ---
EXAMINATION: MRI BRAIN HEAD WO CONTRAST INDICATION: Sz, CVA COMPARISON: None TECHNIQUE: Multiplanar, multisequence magnetic resonance imaging of the brain was performed without the use of i ntravenous contrast. FINDINGS: No evidence of acute or remote infarct. No intracranial hemorrhage. No mass effect. There is periventricular/deep white matter T2/FLAIR hyperintensity is nonspecific, but most commonly associated with chronic microvascular disease. Encephalomalacia left parietal lobe. The ventricles and sulci are normal in size for age. Clear basal cisterns. Flow voids in the major intracranial vessels are maintained. No abnormality of the orbits. Paranasal sinuses and mastoid air cells are clear. No abnormality of the visualized osseous structures and extracranial soft tissues. IMPRESSION: No acute infarct, intracranial hemorrhage, mass effect, or hydrocephalus.
[2025-04-27 16:39] VITALS: BP 114/71; PULSE 60; RESP 16; TEMP 98; O2SAT 90
[2025-04-28 10:05] LABS: Hepatitis B Surface Antigen Negative (Negative)
--- NOTE | 2025-04-28 20:41 | DVHEEG2 ---
Neurology EEG Procedural Note Procedural Note EXAM DATE: 04/27/2025 REFERRING DOCTOR: Dr. Boyer TECHNIQUE: Eighteen channels of EEG, 2 channels of EOG, and 1 channel of EKG were recorded using the International 10/20 system. CLINICAL DATA: The patient was referred for an EEG evaluation for the evidence of seizure disorder. MEDICATIONS: See chart BACKGROUND ACTIVITY: While the patient was awake, the background activity consisted of well regulated 11-12 Hz rhythmic waveforms, symmetrically distributed over both posterior quadrants and was reactive to eye opening. ACTIVATION: Hyperventilation: Not done Photic Stimulation: No photic convulsive response Sleep: Noticed IMPRESSION: This is a normal EEG. No focal, lateralized, or epileptiform features are noted. If clinically indicated to rule out a seizure disorder, recommend repeat EEG with sleep deprivation. The EKG channel showed a regular heart rate of 54 per minute. [place] [address] BELLA BOYER MD Apr 28, 2025 20:41
== END 2025-04-27 17:00 | disposition home or self-care (01) | DRG 70 ==
LOC: EDUNIT# 17:35 → EDBD 17:35 → ER 17:35 → OVERFLOW 21:22 → TELE-WESTW 04-26 17:05
PROVIDERS: ADMIT Internal Medicine; ATTEND Emergency Medicine
PROC: 5A1D70Z Performance of Urinary Filtration, Intermittent, Less than 6 Hours Per Day (ICD-10-PCS; principal; 2025-04-27)
DX: G93.41 Metabolic encephalopathy (principal); J15.69 Pneumonia due to other Gram-negative bacteria; N18.6 End stage renal disease; J15.9 Unspecified bacterial pneumonia; I13.2 Hypertensive heart and chronic kidney disease with heart failure and with stage 5 chronic kidney disease, or end stage renal disease; N25.81 Secondary hyperparathyroidism of renal origin; R18.8 Other ascites; E16.2 Hypoglycemia, unspecified; I27.20 Pulmonary hypertension, unspecified; K74.60 Unspecified cirrhosis of liver; Z99.2 Dependence on renal dialysis; I50.9 Heart failure, unspecified; G40.909 Epilepsy, unspecified, not intractable, without status epilepticus; F41.9 Anxiety disorder, unspecified; E55.9 Vitamin D deficiency, unspecified; R91.8 Other nonspecific abnormal finding of lung field; Z20.822 Contact with and (suspected) exposure to COVID-19; Z88.8 Allergy status to other drugs, medicaments and biological substances; Z86.73 Personal history of transient ischemic attack (TIA), and cerebral infarction without residual deficits; Z85.841 Personal history of malignant neoplasm of brain; Z80.3 Family history of malignant neoplasm of breast; Z79.899 Other long term (current) drug therapy; Z79.82 Long term (current) use of aspirin
CPT/HCPCS: 36415; 70450; 70551; 71045; 76700; 80048; 80053; 80061; 80076; 80320; 82140; 82306; 82542; 82607; 82746; 82962; 83036; 83605; 83735; 83880; 83970; 84100; 84443; 84484; 85025; 85610; 85730; 86141; 86706; 87040; 87081; 87340; 87426; 87804; 90935; 93005; 95819; 99291; G0378; J2405

== ENCOUNTER 2025-05-07 15:31 | Inpatient (IN) | payer OTHER, MEDICAID ==
[~2025-05-07] VITALS: Ht 165.1 cm; Wt 82.0 kg
[~2025-05-07 15:31] MED LIST changes: +DOXY1CAP58 PO
--- NOTE | 2025-05-07 15:37 | ED.PDOC ---
Altered Mental Status HPI Comments 44 year old female presents to the ED via EMS with a chief complaint of ALOC onset today (05/07/25). Per EMS, patient was seen at a different hospital due to sharp, non-radiating suprapubic pain, signed out AMA. Patient missed dialysis yesterday. Family noticed around 09:00, patient was altered, lethargic, called 911. Patient is altered, not answering questions. PMHx CVA, HTN, ESRD. No other symptoms or modifying factors present at this time. Time Seen by MD: 15:30 Reviewed Notes: Medications, Allergies Allergies: Coded Allergies: Methylprednisolone (Verified Allergy, Unknown, 04/16/23) Home Meds Active Scripts Doxycycline (Monohydrate) (Doxycycline) 100 Mg Cap, 100 MG PO BID for 5 Days, #10 CAP Prov:SUSAN CORDERO RESIDENT 04/27/25 Clindamycin Hcl (Cleocin) 300 Mg Cap, 300 MG PO TID for 5 Days, #15 CAP Prov:CHRISTELLE VILLANUEVA MD 04/03/25 Albuterol Sulfate (VENTOLIN MDI) 90 Mcg Ih, 90 MCG IN Q4HR PRN, #1 INH Prov:ENEDINA FRY MD 03/10/24 Midodrine Hcl (Midodrine Hcl) 10 Mg Tab, 10 MG PO BID, #60 TAB Prov:ENEDINA FRY MD 03/10/24 Sildenafil Citrate (Pulmonary (Revatio) 10 Mg/Ml Arielle, 20 MG PO DAILY, #60 ML Prov:ENEDINA FRY MD 03/10/24 Lorazepam (ATIVAN TABLET) 0.5 Mg Tb, 1 TAB PO DAILY, #30 TAB Prov:ENEDINA FRY MD 03/10/24 Reported Medications Clonidine Hcl ([id number] PATCH) 0.1 Mg/24 Hr Ph, 0.1 MG TD PRN for SBP>150, PATCH 02/29/24 Aspirin (Aspirin Low Dose) 81 Mg Chw, 81 MG PO DAILY, TAB.CHEW 02/29/24 Hydralazine Hcl (Hydralazine Hcl) 100 Mg Tab, 1 TAB PO DAILY, #90 TAB 5 Refills 05/30/22 Calcium Acetate (Phosphate Bin (Calcium Acetate) 667 Mg Cap, 1334 MG PO TIDWM, MG 05/30/22 Hydrocodone-Acetaminophen (Hydrocodone Bitartrate/AC 5-325 mg) 1 Tab Tab, 1 TAB PO BIDPRN PRN for PAIN 03/19/22 Information Source: Emergency Med Personnel Mode of Arrival: EMS Severity: Moderate Timing: Hours Duration: Since onset Prehospital treatment: None Quality: Change in Behavior Recent: None History of: CVA Past Medical History PAST MEDICAL HISTORY: CVA, ESRD, HTN Surgical History: Denies all surgeries DIPLOMA DENTAL ASSISTANT History: No Pertinent DIPLOMA DENTAL ASSISTANT History Family History Family History: Reviewed,noncontributory to illness, No family hx of Cancer, No family hx of DM, No family hx of Heart marge, No family hx of HTN, No family hx ofKidney marge, No family hx of Liver marge, No family hx of Lung marge, No family hx of Stroke Social History Smoker: Non-Smoker Alcohol: Denies ETOH Use Drugs: Denies Drug Use Lives In: Home Unable to Obtain due to: Altered Mental Status Physical Exam General Appearance: Normal HEENT: Normal ENT Inspection, Pharynx Normal, TMs Normal Neck: Full Range of Motion, Non-Tender, Normal, Normal Inspection Respiratory: Chest Non-Tender, Lungs Clear, No Accessory Muscle Use, No Respiratory Distress, Normal Breath Sounds Cardiovascular: No Edema, No JVD, No Murmur, No Gallop, Normal Peripheral Pulses, Regular Rate/Rhythm Breast Exam: Deferred Gastrointestinal: No Organomegaly, Non Tender, No Pulsatile Mass, Normal Bowel Sounds, Soft Genitalia: Deferred Pelvic: Deferred Rectal: Deferred Extremities: No calf tenderness, No pedal edema Musculoskeletal : Location: Left Extremity Location: Arm (dialysis port) Apperance: Normal Neurologic: No Motor Deficits, Normal Affect, Normal Mood, No Sensory Deficits Cerebellar Function: Normal Reflexes: Normal Skin: Dry, Normal Color, Warm Lymphatic: No Adenopathy Was a procedure done? Was a procedure done?: No Differential Diagnosis (ALOC) Differential Diagnosis: Dehydration, Hypoglycemia, DKA, Encephalopathy, Hypoxemia, Closed Head Injury, CVA X-Ray, Labs, Meds, VS Vital Signs Date Time Temp Pulse Resp B/P (MAP) Pulse Ox O2 Delivery O2 Flow Rate FiO2 05/07/25 18:30 52 16 126/75 (92) 98 05/07/25 17:30 52 16 130/69 (89) 98 05/07/25 16:24 55 16 95 Room Air* 0 21 05/07/25 16:24 98.6 78 16 131/87 (102) 98 98.6 05/07/25 15:31 97.6 55 16 152/88 (109) 95 97.6 Lab Test 05/07/25 15:48 Range/Units White Blood Count 4.8 4.4-10.8 10^3/uL Red Blood Count 4.18 4.0-5.20 10^6/uL Hemoglobin 12.2 12.2-16.2 g/dL Hematocrit 37.4 36.0-46.0 % Mean Corpuscular Volume 89.4 80.0-100.0 fL Mean Corpuscular Hemoglobin 29.2 28.0-32.0 pg Mean Corpuscular Hemoglobin Concent 32.6 32.0-36.0 g/dL Red Cell Distribution Width 17.6 H 11.8-14.3 % Platelet Count 145 140-450 10^3/uL Mean Platelet Volume 10.0 6.9-10.8 fL Neutrophils (%) (Auto) 65.5 37.0-80.0 % Lymphocytes (%) (Auto) 22.7 10.0-50.0 % Monocytes (%) (Auto) 7.8 0.0-12.0 % Eosinophils (%) (Auto) 2.0 0.0-7.0 % Basophils (%) (Auto) 2.0 0.0-2.0 % Neutrophils # (Auto) 3.1 1.6-8.6 10 ^3/uL Lymphocytes # (Auto) 1.1 0.4-5.4 10 ^3/uL Monocytes # (Auto) 0.4 0-1.3 10 ^3/uL Eosinophils # (Auto) 0.1 0-0.8 10 ^3/uL Basophils # (Auto) 0.1 0-0.2 10 ^3/uL Nucleated Red Blood Cells 0.1 % Sodium Level 141 136-145 mmol/L Potassium Level 4.9 3.5-5.1 mmol/L Chloride Level 105 98-107 mmol/L Carbon Dioxide Level 20 20-31 mmol/L Anion Gap 16 H 5-15 Blood Urea Nitrogen 85 *H 9-23 mg/dL Creatinine 12.45 *H 0.550-1.02 mg/dL Glomerular Filtration Rate Calc 3 >90 mL/min BUN/Creatinine Ratio 6.8 L 10.0-20.0 Serum Glucose 74 74-106 mg/dL Calcium Level 5.9 *L 8.7-10.4 mg/dL Total Bilirubin 0.3 0.2-1.0 mg/dL Aspartate Amino Transferase (AST) 25 13-40 U/L Alanine Aminotransferase (ALT) 13 7-40 U/L Alkaline Phosphatase 141 H 46-116 U/L Ammonia 15 11-32 umol/L Total Protein 5.7 5.7-8.2 g/dL Albumin 3.5 3.2-4.8 g/dL Hepatitis A IgM Antibody Pending Hepatitis B Surface Antigen Pending Hepatitis B Core IgM Antibody Pending Hepatitis C Antibody Pending X-Ray, Labs, Meds, VS Comment Patient will be admitted for metabolic encephalopathy, Patient currently receiving hemodialysis Radiologist called and recommended CTA, states he is unsure if he is seeing artifact from previous CVA versus new findings Time of 1ST Reevaluation: 16:00 Reevaluation 1ST: Unchanged Patient Education/Counseling: Diagnosis, Treatment, Prognosis Family Education/Counseling: No Family Present SEPSIS Sepsis Screen Physician Orders Head Without Contrast (05/07/25 17:43) Urinalysis (05/07/25 15:33) Chest Xray 1 View (05/07/25 17:51) *[facility] (05/07/25 16:39) Hemodialysis Orders (05/07/25 17:05) Dialysis Nursing Message (05/07/25 17:05) Document Fluid Input And Outpu (05/07/25 17:05) Acute Hepatitis Panel (05/07/25 17:05) Vital Signs Date Time Temp Pulse Resp B/P (MAP) Pulse Ox O2 Delivery O2 Flow Rate FiO2 05/07/25 18:30 52 16 126/75 (92) 98 05/07/25 17:30 52 16 130/69 (89) 98 05/07/25 16:24 55 16 95 Room Air* 0 21 05/07/25 16:24 98.6 78 16 131/87 (102) 98 98.6 05/07/25 15:31 97.6 55 16 152/88 (109) 95 97.6 Laboratory Tests Test 05/07/25 15:48 White Blood Count 4.8 10^3/uL (4.4-10.8) Departure 1 Departure Time of Disposition: 20:14 Impression: Primary Impression: Metabolic encephalopathy Additional Impression: End-stage renal disease on hemodialysis Disposition: ADMITTED INPATIENT Condition: Guarded Critical Care Note Critical Care Time?: No Stability Stability form required: No Heart Score Heart Score: Heart Score Response (Comments) Value History N/A 0 EKG N/A 0 Age N/A 0 Risk Factors N/A 0 Troponin N/A 0 Total 0 I personally scribed for DEUCE QUINONEZ ([email or web address]) on 05/07/25 at 15:37. Electronically submitted by Renee Grover ([email or web address]). DEUCE QUINONEZ May 07, 2025 15:37
[2025-05-07 16:00] LABS: Hematocrit 37.4 % (36.0-46.0); Hemoglobin 12.2 g/dL (12.2-16.2); Mean Corpuscular Hemoglobin 29.2 pg (28.0-32.0); Mean Corpuscular Volume 89.4 fL (80.0-100.0); Nucleated Red Blood Cells % 0.1 %
[2025-05-07 16:17] LABS: Alanine Aminotransferase 13 U/L (7-40); Albumin 3.5 g/dL (3.2-4.8); Anion Gap 16 (5-15); BUN/Creatinine Ratio 6.8 (10.0-20.0); Chloride 105 mmol/L (98-107); Glucose 74 mg/dL (74-106); Potassium 4.9 mmol/L (3.5-5.1); Sodium 141 mmol/L (136-145); Total Protein 5.7 g/dL (5.7-8.2)
[2025-05-07 16:19] LABS: Alkaline Phosphatase 141 U/L (46-116); Bilirubin, Total 0.3 mg/dL (0.2-1.0); Carbon Dioxide 20 mmol/L (20-31)
[2025-05-07 16:21] LABS: Blood Urea Nitrogen 85 mg/dL (9-23); Calcium 5.9 mg/dL (8.7-10.4)
[2025-05-07 16:24] VITALS: PULSE 55; RESP 16; O2SAT 95
--- NOTE | 2025-05-07 18:59 | DVHINCON2 ---
Date of service: May 07, 2025 Reason for Consultation ESRD History of Present Illness 44 year old male PMH ESRD, CVA, HTN p/w AMS and missed HD. Nephrology called for dialysis. Allergies: Coded Allergies: Methylprednisolone (Verified Allergy, Unknown, 04/16/23) Home Meds Active Scripts Doxycycline (Monohydrate) (Doxycycline) 100 Mg Cap, 100 MG PO BID for 5 Days, #10 CAP Prov:SUSAN CORDERO 04/27/25 Clindamycin Hcl (Cleocin) 300 Mg Cap, 300 MG PO TID for 5 Days, #15 CAP Prov:CHRISTELLE VILLANUEVA MD 04/03/25 Albuterol Sulfate (VENTOLIN MDI) 90 Mcg Ih, 90 MCG IN Q4HR PRN, #1 INH Prov:ENEDINA FRY MD 03/10/24 Midodrine Hcl (Midodrine Hcl) 10 Mg Tab, 10 MG PO BID, #60 TAB Prov:ENEDINA FRY MD 03/10/24 Sildenafil Citrate (Pulmonary (Revatio) 10 Mg/Ml Arielle, 20 MG PO DAILY, #60 ML Prov:ENEDINA FRY MD 03/10/24 Lorazepam (ATIVAN TABLET) 0.5 Mg Tb, 1 TAB PO DAILY, #30 TAB Prov:ENEDINA FRY MD 03/10/24 Reported Medications Clonidine Hcl ([id number] PATCH) 0.1 Mg/24 Hr Ph, 0.1 MG TD PRN for SBP>150, PATCH 02/29/24 Aspirin (Aspirin Low Dose) 81 Mg Chw, 81 MG PO DAILY, TAB.CHEW 02/29/24 Hydralazine Hcl (Hydralazine Hcl) 100 Mg Tab, 1 TAB PO DAILY, #90 TAB 5 Refills 05/30/22 Calcium Acetate (Phosphate Bin (Calcium Acetate) 667 Mg Cap, 1334 MG PO TIDWM, MG 05/30/22 Hydrocodone-Acetaminophen (Hydrocodone Bitartrate/AC 5-325 mg) 1 Tab Tab, 1 TAB PO BIDPRN PRN for PAIN 03/19/22 Current Medications Current Medications Medications (Trade) Dose Ordered Sig/Elidia Route PRN Reason Start Time Stop Time Status Last Admin Sodium Chloride (Saline Lock Ns) 10 ml Q8HR IV 05/07/25 22:00 05/08/25 06:00 Calcium Acetate (Phoslo Capsule) 1,334 mg TIDWM PO 05/08/25 08:00 05/08/25 05:23 DC Patient Own Medication 81 mg DAILY PO 05/08/25 10:00 05/07/25 21:30 DC Patient Own Medication 20 mg DAILY PO 05/08/25 10:00 05/07/25 21:32 DC Levetiracetam 100 ml @ 400 mls/hr BID IV 05/07/25 22:00 05/07/25 22:27 Pantoprazole Sodium (Protonix) 40 mg DAILY IV 05/08/25 10:00 Heparin Sodium (Porcine) 5,000 units Q12HR SC 05/07/25 22:00 Aspirin 81 mg DAILY PO 05/08/25 10:00 Sildenafil Citrate (Revatio) 20 mg DAILY PO 05/08/25 10:00 Diagnostic Test (Pha) (Accu-Chek Comfort Curve T) 1 strip Q90MIN 05/07/25 22:30 05/08/25 09:14 Lactulose 30 ml BID PO 05/08/25 10:00 Family History: FH: breast cancer Grandmother Review of Systems cannot obtain due to AMS H&P Exam Vital Signs/I&O Vital Sign Date Time Temp Pulse Resp B/P (MAP) Pulse Ox O2 Delivery O2 Flow Rate FiO2 05/08/25 07:45 64 14 96 Room Air* 0 21 05/08/25 07:44 97.9 140/80 (100) 97.9 Physical Exam female NAD confused AVF 1+ ankle edema Labs/Diagnostic Data Labs/Diagnostic Data Laboratory Tests Test 05/08/25 07:22 05/08/25 05:15 05/08/25 01:57 05/08/25 01:24 Range/Units White Blood Count 4.0 L 4.4-10.8 10^3/uL Red Blood Count 4.43 4.0-5.20 10^6/uL Hemoglobin 13.3 12.2-16.2 g/dL Hematocrit 40.0 36.0-46.0 % Mean Corpuscular Volume 90.3 80.0-100.0 fL Mean Corpuscular Hemoglobin 29.9 28.0-32.0 pg Mean Corpuscular Hemoglobin Concent 33.1 32.0-36.0 g/dL Red Cell Distribution Width 17.0 H 11.8-14.3 % Platelet Count 127 L 140-450 10^3/uL Mean Platelet Volume 9.5 6.9-10.8 fL Neutrophils (%) (Auto) 65.2 37.0-80.0 % Lymphocytes (%) (Auto) 20.6 10.0-50.0 % Monocytes (%) (Auto) 10.2 0.0-12.0 % Eosinophils (%) (Auto) 2.3 0.0-7.0 % Basophils (%) (Auto) 1.7 0.0-2.0 % Neutrophils # (Auto) 2.6 1.6-8.6 10 ^3/uL Lymphocytes # (Auto) 0.8 0.4-5.4 10 ^3/uL Monocytes # (Auto) 0.4 0-1.3 10 ^3/uL Eosinophils # (Auto) 0.1 0-0.8 10 ^3/uL Basophils # (Auto) 0.1 0-0.2 10 ^3/uL Nucleated Red Blood Cells 0.0 % Sodium Level 141 136-145 mmol/L Potassium Level 3.7 3.5-5.1 mmol/L Chloride Level 101 98-107 mmol/L Carbon Dioxide Level 25 20-31 mmol/L Anion Gap 15 5-15 Blood Urea Nitrogen 37 #H 9-23 mg/dL Creatinine 8.38 #H 0.550-1.02 mg/dL Glomerular Filtration Rate Calc 6 >90 mL/min BUN/Creatinine Ratio 4.4 L 10.0-20.0 Serum Glucose 69 L 74-106 mg/dL Calcium Level 7.5 L 8.7-10.4 mg/dL Phosphorus Level 6.2 H 2.4-5.1 mg/dL Magnesium Level 2.4 1.6-2.6 mg/dL Total Bilirubin 0.4 0.2-1.0 mg/dL Aspartate Amino Transferase (AST) 28 13-40 U/L Alanine Aminotransferase (ALT) 9 7-40 U/L Alkaline Phosphatase 147 H 46-116 U/L Troponin I High Sensitivity 26 </=34 ng/L Total Protein 6.3 5.7-8.2 g/dL Albumin 3.6 3.2-4.8 g/dL POC Glucose 90 64 L 71 70-106 mg/dl Test 05/08/25 00:03 05/07/25 22:46 05/07/25 22:04 05/07/25 21:37 Range/Units POC Glucose 131 H 74 65 L 70-106 mg/dl Troponin I High Sensitivity 21 </=34 ng/L B-Type Natriuretic Peptide 656.72 0-100 pg/mL Test 05/07/25 21:32 05/07/25 15:48 05/07/25 03:00 Range/Units POC Glucose 59 L 70-106 mg/dl White Blood Count 4.8 4.4-10.8 10^3/uL Red Blood Count 4.18 4.0-5.20 10^6/uL Hemoglobin 12.2 12.2-16.2 g/dL Hematocrit 37.4 36.0-46.0 % Mean Corpuscular Volume 89.4 80.0-100.0 fL Mean Corpuscular Hemoglobin 29.2 28.0-32.0 pg Mean Corpuscular Hemoglobin Concent 32.6 32.0-36.0 g/dL Red Cell Distribution Width 17.6 H 11.8-14.3 % Platelet Count 145 140-450 10^3/uL Mean Platelet Volume 10.0 6.9-10.8 fL Neutrophils (%) (Auto) 65.5 37.0-80.0 % Lymphocytes (%) (Auto) 22.7 10.0-50.0 % Monocytes (%) (Auto) 7.8 0.0-12.0 % Eosinophils (%) (Auto) 2.0 0.0-7.0 % Basophils (%) (Auto) 2.0 0.0-2.0 % Neutrophils # (Auto) 3.1 1.6-8.6 10 ^3/uL Lymphocytes # (Auto) 1.1 0.4-5.4 10 ^3/uL Monocytes # (Auto) 0.4 0-1.3 10 ^3/uL Eosinophils # (Auto) 0.1 0-0.8 10 ^3/uL Basophils # (Auto) 0.1 0-0.2 10 ^3/uL Nucleated Red Blood Cells 0.1 % Sodium Level 141 136-145 mmol/L Potassium Level 4.9 3.5-5.1 mmol/L Chloride Level 105 98-107 mmol/L Carbon Dioxide Level 20 20-31 mmol/L Anion Gap 16 H 5-15 Blood Urea Nitrogen 85 *H 9-23 mg/dL Creatinine 12.45 *H 0.550-1.02 mg/dL Glomerular Filtration Rate Calc 3 >90 mL/min BUN/Creatinine Ratio 6.8 L 10.0-20.0 Serum Glucose 74 74-106 mg/dL Calcium Level 5.9 *L 8.7-10.4 mg/dL Magnesium Level 2.1 1.6-2.6 mg/dL Total Bilirubin 0.3 0.2-1.0 mg/dL Aspartate Amino Transferase (AST) 25 13-40 U/L Alanine Aminotransferase (ALT) 13 7-40 U/L Alkaline Phosphatase 141 H 46-116 U/L Ammonia 15 11-32 umol/L Troponin I High Sensitivity 20 </=34 ng/L Total Protein 5.7 5.7-8.2 g/dL Albumin 3.5 3.2-4.8 g/dL Influenza Type A Antigen Negative Negative Influenza Type B Antigen Negative Negative SARS-CoV-2 Antigen (Rapid) Negative NEGATIVE Assessment 44 year old female brought by family due to change in mental state ESRD AMS hypertension chf REGINE HD fluid removal as tolerated s/p CT head rec fulll neuro w/u care time 55min Plan discussed with: Other JESSIE ZAYAS MD May 07, 2025 18:59
[2025-05-07 20:51] VITALS: PULSE 58; RESP 18; O2SAT 96
--- NOTE | 2025-05-07 21:37 | DVHHP2 ---
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 Information was gathered from chart reviewing and after talking from nursing staff. As per EMS patient also went to different hospital due to sharp nonradiating suprapubic pain, signed out AMA from the hospital. Patient missed hemodialysis yesterday. Family noticed around 9 o'clock patient was altered, lethargic and 911 was called. Initial lab workup revealed serum creatinine 12.95, BUN 85, anion gap 16, BNP 656, troponin I within normal limit, calcium 5.4, alkaline phosphatase 145, ammonia 15. Chest x-ray -Median sternotomy changes. Enlarged cardiomediastinal silhouette. Central vascular redistribution and interstitial prominence. CT head without contrast- No acute intracranial hemorrhage identified. Left frontotemporal encephalomalacia with evidence of prior craniotomy in the same area. Hyperdensity within the V4 segment of the right vertebral artery. 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 Past Surgical History Bilateral tubal ligation, , mitral and tricuspid valve repair, Past Social History Details of the information could not be obtained due to patient's confusion, patient lives with her partner Review of Systems Review of Systems Details of the other system could not be obtained due to patient's altered mental status Allergies: Coded Allergies: Methylprednisolone (Verified Allergy, Unknown, 04/16/23) Medications Current Medications Medications Dose Ordered Sig/Elidia Route Start Time Stop Time Status Last Admin Dose Admin Sodium Chloride 10 ml Q8HR IV 05/07/25 22:00 Calcium Acetate 1,334 mg TIDWM PO 05/08/25 08:00 Levetiracetam 100 ml @ 400 mls/hr BID IV 05/07/25 22:00 Pantoprazole Sodium 40 mg DAILY IV 05/08/25 10:00 Heparin Sodium (Porcine) 5,000 units Q12HR SC 05/07/25 22:00 Aspirin 81 mg DAILY PO 05/08/25 10:00 Sildenafil Citrate 20 mg DAILY PO 05/08/25 10:00 Exam Vital Signs Vital Signs Date Time Temp Pulse Resp B/P (MAP) Pulse Ox O2 Delivery O2 Flow Rate FiO2 05/07/25 20:51 58 18 96 Room Air* 0 21 05/07/25 20:30 142/88 (106) 05/07/25 16:24 98.6 98.6 Exam General examination- patient with confusion HEENT- PEERLA, no acute nasal discharge Cardiovascular- S1-S2 audible, rate and rhythm regular, no murmur Respiratory- bilateral lung crackles+ Gastrointestinal-nontender, bowel sound+. Nondistended Musculoskeletal-no acute joint swelling or tenderness or redness extremity- fistula on left arm Neurological- patient with confusion, details of the neurological examination could not be done Psychiatry- denies depression or SI or HI Skin- no acute rash or purpura Labs/Xrays Labs Test 05/07/25 15:48 Range/Units White Blood Count 4.8 4.4-10.8 10^3/uL Red Blood Count 4.18 4.0-5.20 10^6/uL Hemoglobin 12.2 12.2-16.2 g/dL Hematocrit 37.4 36.0-46.0 % Mean Corpuscular Volume 89.4 80.0-100.0 fL Mean Corpuscular Hemoglobin 29.2 28.0-32.0 pg Mean Corpuscular Hemoglobin Concent 32.6 32.0-36.0 g/dL Red Cell Distribution Width 17.6 H 11.8-14.3 % Platelet Count 145 140-450 10^3/uL Mean Platelet Volume 10.0 6.9-10.8 fL Neutrophils (%) (Auto) 65.5 37.0-80.0 % Lymphocytes (%) (Auto) 22.7 10.0-50.0 % Monocytes (%) (Auto) 7.8 0.0-12.0 % Eosinophils (%) (Auto) 2.0 0.0-7.0 % Basophils (%) (Auto) 2.0 0.0-2.0 % Neutrophils # (Auto) 3.1 1.6-8.6 10 ^3/uL Lymphocytes # (Auto) 1.1 0.4-5.4 10 ^3/uL Monocytes # (Auto) 0.4 0-1.3 10 ^3/uL Eosinophils # (Auto) 0.1 0-0.8 10 ^3/uL Basophils # (Auto) 0.1 0-0.2 10 ^3/uL Nucleated Red Blood Cells 0.1 % Sodium Level 141 136-145 mmol/L Potassium Level 4.9 3.5-5.1 mmol/L Chloride Level 105 98-107 mmol/L Carbon Dioxide Level 20 20-31 mmol/L Anion Gap 16 H 5-15 Blood Urea Nitrogen 85 *H 9-23 mg/dL Creatinine 12.45 *H 0.550-1.02 mg/dL Glomerular Filtration Rate Calc 3 >90 mL/min BUN/Creatinine Ratio 6.8 L 10.0-20.0 Serum Glucose 74 74-106 mg/dL Calcium Level 5.9 *L 8.7-10.4 mg/dL Total Bilirubin 0.3 0.2-1.0 mg/dL Aspartate Amino Transferase (AST) 25 13-40 U/L Alanine Aminotransferase (ALT) 13 7-40 U/L Alkaline Phosphatase 141 H 46-116 U/L Ammonia 15 11-32 umol/L Total Protein 5.7 5.7-8.2 g/dL Albumin 3.5 3.2-4.8 g/dL SEPSIS Sepsis Screen Date sepsis recognized/suspect: May 07, 2025 Time Sepsis recognized/suspect: 1623 Recent Procedure: Yes (PARACENTISIS 05/06) On Antibiotic Therapy: No Respiratory Rate >20: No Heart Rate >90: No Temp<36 C (96.8 F) or >38.3 C: No SBP <90 or MAP <65 mmHG: No New Acute Mental Status Change: No Is the patient on CPAP, BIPAP,: No Physician Orders Head Without Contrast (05/07/25 17:43) Urinalysis (05/07/25 15:33) Chest Xray 1 View (05/07/25 17:51) *Dr. [facility] (05/07/25 16:39) Hemodialysis Orders (05/07/25 17:05) Dialysis Nursing Message (05/07/25 17:05) Document Fluid Input And Outpu (05/07/25 17:05) Acute Hepatitis Panel (05/07/25 17:05) Admit (05/07/25 21:21) Code Status (05/07/25 21:21) Sodium Chloride Lock (Saline Lock Ns) (05/07/25 22:00) Complete Blood Count (05/08/25 04:00) Comprehensive Metabolic Panel (05/08/25 04:00) Npo (Nothing By Mouth) Diet (05/08/25 Breakfast) Notify Of Changes From Base (05/07/25 21:21) Credit Control Clerk For 24 Hours (05/07/25 21:21) Calcium Acetate Capsule (Phoslo Capsule) (05/08/25 08:00) Levetiracetam 500 Mg/100ml (Levetiraceta (05/07/25 22:00) Pantoprazole (Protonix) (05/08/25 10:00) Heparin Sodium (Porcine) (05/07/25 22:00) Magnesium (05/07/25 21:26) Troponin-I Hs (05/07/25 21:26) Troponin-I Hs (05/07/25 22:26) Troponin-I Hs (05/08/25 00:26) B-Type Natriuretic Peptide (05/07/25 21:26) Calcium Gluc 1,000mg/50ml-Ns (05/07/25 21:30) Covid19 Antigen Tali (05/07/25 ) Rapid Influenza A&B (05/07/25 21:27) Drug Screen (05/07/25 21:27) Aspirin Tablet (05/08/25 10:00) Sildenafil Citrate (Revatio) (05/08/25 10:00) Mrsa Screen (05/07/25 21:36) Vital Signs Date Time Temp Pulse Resp B/P (MAP) Pulse Ox O2 Delivery O2 Flow Rate FiO2 05/07/25 20:51 58 18 96 Room Air* 0 21 05/07/25 20:30 58 18 142/88 (106) 95 05/07/25 18:30 52 16 126/75 (92) 98 05/07/25 17:30 52 16 130/69 (89) 98 05/07/25 16:24 55 16 95 Room Air* 0 21 05/07/25 16:24 98.6 78 16 131/87 (102) 98 98.6 7/20/25 15:31 97.6 55 16 152/88 (109) 95 97.6 Laboratory Tests Test 05/07/25 15:48 White Blood Count 4.8 10^3/uL (4.4-10.8) Assessment/Plan Assessment/Plan Assessment and plan # altered level of consciousness likely due to metabolic/Toxic encep halopathy/hypoglycemia # acute recurrent hypoglycemia -serum glucose 74>64 -serum creatinine 12.45, BUN 85 -anion gap 16 -status post 50% -50 mL dextrose -s/p dialysis tonight at bed side -avoid dehydration and nephrotoxic drugs -continue current conservative management -continue dextrose 10% 30 mL/hour -pending COVID-19 and flu test -pending UDS, pending urine analysis # acute pulmonary edema # ESRD on HD # metabolic acidosis -continue hemodialysis as per schedule recommended by Nephrology -continue current conservative management # seizure disorder -continue Keppra 500 mg IV b.i.d. # history of CVA -continue aspirin 81 mg p.o. daily # history of CHF # cirrhosis of liver -avoid constipation and hepatotoxic drugs -lactulose 30 mL p.o. b.i.d. # pulmonary hypertension -continue sildenafil 20 mg p.o. 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 Castaneda , nursing staff, Total time spent on patient evaluation, chart review, assessment and plan, disc ussion discussion >35 minutes Plan discussed with: Other (RN) My Orders Orders - KARRIE HERNANDEZ RESIDENT Procedure Category Date Status Time Admit ADMIT 05/07/25 Transmitted 21:21 Code Status CODE 05/07/25 Transmitted 21:21 Sodium Chloride Lock PHA 05/07/25 In Process (Saline Lock Ns) 22:00 Complete Blood Count LAB 05/08/25 Verified 04:00 Comprehensive LAB 05/08/25 Verified Metabolic Panel 04:00 Npo (Nothing By DIET 05/08/25 Transmitted Mouth) Diet Breakfast Notify Of Changes [id number] 05/07/25 In Process From Base 21:21 Credit Control Clerk For [facility] 05/07/25 In Process 24 Hours 21:21 Calcium Acetate PHA 05/08/25 In Process Capsule (Phoslo 08:00 Levetiracetam 500 PHA 05/07/25 In Process Mg/100ml (Levetiraceta 22:00 Pantoprazole PHA 05/08/25 In Process (Protonix) 10:00 Heparin Sodium PHA 05/07/25 In Process (Porcine) 22:00 Magnesium LAB 05/07/25 In Process 21:26 Troponin-I Hs LAB 05/07/25 Logged 21:26 Troponin-I Hs LAB 05/07/25 Logged 22:26 Troponin-I Hs LAB 05/08/25 Verified 00:26 B-Type Natriuretic LAB 05/07/25 In Process Peptide 21:26 Calcium Gluc PHA 05/07/25 In Process 1,000mg/50ml-Ns 21:30 Covid19 Antigen Tali LAB 05/07/25 Logged Rapid Influenza A&B LAB 05/07/25 Logged 21:27 Drug Screen LAB 05/07/25 Logged 21:27 Aspirin Tablet PHA 05/08/25 In Process 10:00 Sildenafil Citrate PHA 05/08/25 In Process (Revatio) 10:00 Mrsa Screen SUSAN 05/07/25 Verified 21:36 Date of Service: May 07, 2025 Billing Provider: GUSTAVO CASTANEDA MD Common Visit Codes: [id number] INP/OBS CARE (HIGH) Secondary Visit Codes: [id number] CARE PLAN 30 MINUTES KARRIE HERNANDEZ RESIDENT May 07, 2025 21:37
[2025-05-07] MEDS: DEXTROSE (50%) 50ML SYRG IV ONE ×4 (21:48→23:39)
[2025-05-07] MEDS: levETIRAcetam 500 mg/100ml 100 ML IV SCH (22:27)
[2025-05-07] MEDS: CALCIUM GLUC 1,000mg/50ml-NS 50 ML IV ONE (22:27)
[2025-05-07] MEDS: SODIUM CHLOR 0.9% PF (SALINE LOCK) 10ML VIAL/SYR IV SCH (22:28)
[2025-05-07] MEDS: PANTOPRAZOLE 40 MG/10 ML VIAL INJ IV ONE (22:28)
[2025-05-07] MEDS: DEXTROSE 50% SYRINGE 50 ML IV ONE (22:44)
[2025-05-07] MEDS: ACCU-CHEK COMFORT CURVE STRIP VI SCH (22:48)
--- NOTE | 2025-05-07 23:13 | DVH ---
Report Consult with Physician Open Discussion (F11) Query Retrieve Patient Info Name: WHIT MANN Age/: 44YR (1980) Gender: Female Phone: [phone] Email: NA Order Info Location: [facility] Modality: DX Procedure Desc: XY CHEST XRAY 1 VIEW DOS: 05/07/2025 18:01 wRVU: NA Pending Since: NA Reason: SOB Status: Complete Tag: NA Type/Priority: Emergency / STAT STAT Stroke: NO Physician Info Ordering: DEUCE QUINONEZ Rendering: NA Report Date: 05/07/2025 Report Status: Final Search ANY 6M 1Y 2Y 5Y ALL DX OTH CT US XA MR XY CHEST XRAY 1 VIEW DOS : 05/07/[address] HEAD WITHOUT CONTRAST DOS : 05/07/2025 TUAN VILLARREAL MRI BRAIN HEAD WO CONTRAST DOS : 04/27/2025 ARIA WILLOUGHBY US ABDOMEN COMPLETE SONOGRAM DOS : 04/26/2025 ELMIRA RIGGS XY CHEST PORTABLE DOS : 04/25/2025 EXAMINATION: AP portable chest radiograph CLINICAL HISTORY: sob COMPARISON: None FINDINGS: Patient is rotated and leaning to the left. Shallow inspiration. Median sternotomy changes. Enlarged cardiomediastinal silhouette. Central vascular redistribution and interstitial prominence. No definite pleural effusion or pneumothorax. IMPRESSION: Limited study. CHF type pattern. Correlate to exclude atypical infection. SANDER MTDD
--- NOTE | 2025-05-07 23:16 | DVH ---
Report Consult with Physician Open Discussion (F11) Query Retrieve Patient Info Name: WHIT MANN Age/: 44YR (1980) Gender: Female Phone: [phone] Email: NA Order Info Location: [facility] Modality: CT Procedure Desc: CT HEAD WITHOUT CONTRAST DOS: 05/07/2025 17:40 wRVU: NA Pending Since: NA Reason: ALOC Status: Complete Tag: NA Type/Priority: Emergency / STAT STAT Stroke: NO Physician Info Ordering: DEUCE QUINONEZ Rendering: NA Report Date: 05/07/2025 Report Status: Final COMPUTERIZED TOMOGRAPHY OF THE HEAD WITHOUT CONTRAST REASON FOR STUDY: aloc COMPARISON: None TECHNIQUE: Helical tomographic scans were obtained through the brain. 2-D coronal and sagittal reformatted images are provided. Radiation optimization: All CT scans at this facility use at least one of these dose optimization techniques: Automated exposure control mA and/or kV adjustment per patient size (includes targeted exams where dose is matched to clinical indication) or iterative reconstruction. RADIATION DOSE: CTDI: 59.09 mGy DLP: 1282.63 mGy-cm FINDINGS: No suspicious intracranial hyperdensity to suggest acute blood. There is cavum septum pellucidum. There is moderate encephalomalacia in the left frontotemporal region. There is hyperdensity within the V4 segment of the right vertebral artery. There is no mass effect nor midline shift. There is no hydrocephalus. The suprasellar cistern is intact. There is evidence of remote left temporoparietal craniotomy. The calvarium is otherwise intact. The visualized mastoid air cells and paranasal sinuses are clear. IMPRESSION: No acute intracranial hemorrhage identified. Left frontotemporal encephalomalacia with evidence of prior craniotomy in the same area. Hyperdensity within the V4 segment of the right vertebral artery. Correlate clinically and with patient's neurosurgical history. Given the patient's young age, would consider CTA of the head. Findings were discussed by telephone with Dr. Quinonez at 6:57 p.mJd Haas on 05/07/2025. TEN ESCOBEDO
[2025-05-08] MEDS ORDERED: DEXTROSE 10% 1,000 ML IV ONE (02:00)
[2025-05-08] MEDS: DEXTROSE (50%) 50ML SYRG IV ONE (02:22)
[2025-05-08] MEDS: DEXTROSE 10% 1,000 ML IV ONE (02:22)
[2025-05-08 04:11] LABS: COVID19 ANTIGEN SOFIA FIA NEGATIVE (NEGATIVE)
[2025-05-08] MEDS: SODIUM CHL 0.9% 1000 ML BAG XX ONE (07:30)
[2025-05-08] MEDS: HEPARIN SODIUM (PORCINE) 5000 UNITS/ML 1ML VIAL SC SCH (07:30)
[2025-05-08 07:45] VITALS: PULSE 64; RESP 14; O2SAT 96
[2025-05-08] MEDS ORDERED: CALCIUM ACETATE 667 MG CAP PO SCH (08:00)
[2025-05-08 08:07] LABS: Hematocrit 40.0 % (36.0-46.0); Hemoglobin 13.3 g/dL (12.2-16.2); Mean Corpuscular Hemoglobin 29.9 pg (28.0-32.0); Mean Corpuscular Volume 90.3 fL (80.0-100.0); Nucleated Red Blood Cells % 0.0 %
[2025-05-08 08:19] LABS: Albumin 3.6 g/dL (3.2-4.8); Anion Gap 15 (5-15); BUN/Creatinine Ratio 4.4 (10.0-20.0); Bilirubin, Total 0.4 mg/dL (0.2-1.0); Carbon Dioxide 25 mmol/L (20-31); Chloride 101 mmol/L (98-107); Potassium 3.7 mmol/L (3.5-5.1); Sodium 141 mmol/L (136-145); Total Protein 6.3 g/dL (5.7-8.2)
[2025-05-08 08:23] LABS: Alanine Aminotransferase 9 U/L (7-40); Alkaline Phosphatase 147 U/L (46-116); Blood Urea Nitrogen 37 mg/dL (9-23); Calcium 7.5 mg/dL (8.7-10.4); Glucose 69 mg/dL (74-106)
[2025-05-08 08:26] LABS: Magnesium 2.4 mg/dL (1.6-2.6)
[2025-05-08] MEDS: PANTOPRAZOLE 40 MG/10 ML VIAL INJ IV SCH (10:00)
[2025-05-08] MEDS ORDERED: SILDENAFIL CITRATE PO SCH (10:00)
[2025-05-08] MEDS: SILDENAFIL CITRATE 20 MG TAB PO SCH (10:00)
[2025-05-08] MEDS ORDERED: PATIENTS OWN MEDICATION (Aspirin (Aspirin Low Dose) 81 MG) PO SCH (10:00)
[2025-05-08] MEDS: LACTULOSE 20Gm/30ML SOLN PO SCH (10:00)
--- NOTE | 2025-05-08 10:05 | DVHPN2 ---
Progress Note Date Seen: May 08, 2025 Medical Necessity Reason Pt with a Central, PICC or Fol: No Subjective Review of Systems: Deferred Objective vital signs Vital Sign Date Time Temp Pulse Resp B/P (MAP) Pulse Ox O2 Delivery O2 Flow Rate FiO2 05/08/25 07:45 64 14 96 Room Air* 0 21 05/08/25 07:44 97.9 140/80 (100) 97.9 medications Current Medications Medications Dose Ordered Sig/Elidia Route Start Time Stop Time Status Last Admin Dose Admin Sodium Chloride 10 ml Q8HR IV 05/07/25 22:00 05/08/25 06:00 10 ML Levetiracetam 100 ml @ 400 mls/hr BID IV 05/07/25 22:00 05/07/25 22:27 400 MLS/HR Pantoprazole Sodium 40 mg DAILY IV 05/08/25 10:00 Heparin Sodium (Porcine) 5,000 units Q12HR SC 05/07/25 22:00 Aspirin 81 mg DAILY PO 05/08/25 10:00 Sildenafil Citrate 20 mg DAILY PO 05/08/25 10:00 Diagnostic Test (Pha) 1 strip Q90MIN 05/07/25 22:30 05/08/25 09:14 1 STRIP Lactulose 30 ml BID PO 05/08/25 10:00 Examination: GENERAL:Abnormal, CVS:Normal, NEURO:Abnormal laboratory and microbiology Laboratory Tests 05/08/25 07:22 Test 05/08/25 07:22 Range/Units Serum Glucose 69 L 74-106 mg/dL Problem List/Assessment/Plan Problem List/Assessment/Plan 44 year old female brought by family due to change in mental state ESRD AMS hypertension chf HTN hyperphosphatemia fluid removal as tolerated s/p CT head renal diet and phos binder once able to tolerate po PTH and vit D rec fulll neuro w/u Plan discussed with: Other My Orders My Orders Orders - JESSIE ZAYAS MD Procedure Category Date Status Time Hemodialysis Orders ORDERS 05/07/25 Transmitted 17:05 Dialysis Nursing [email or web address] 05/07/25 In Process Message 17:05 Document Fluid Input [email or web address] 05/07/25 In Process And Outpu 17:05 Acute Hepatitis Panel LAB 05/07/25 In Process 17:05 Basic Metabolic Panel LAB 05/09/25 Verified 04:00 Total Time (mins): 36 JESSIE ZAYAS MD May 08, 2025 10:05
[2025-05-08 10:13] LABS: Hepatitis B Surface Antigen Negative (Negative)
[2025-05-08 10:37] LABS: Hepatitis C Antibody Negative (Negative)
--- NOTE | 2025-05-08 13:56 | DVHPNRES ---
Progress Note Date Seen: May 08, 2025 Resident Creating Document: ADELAIDE CALLEJAS Has the PT tested + for MRSA If YES, has PT been informed?: No Medical Necessity Reason Pt with a Central, PICC or Fol: No Subjective Review of Systems This is 44 years-old female with PMH of ESRD, HTN, CVA, CHF, seizure, liver cirrhosis, pulmonary hypertension, mitral valve and tricuspid valve repair, 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 On Thursday last week around 9 o'clock, patient began walking abnormally and became unresponsive, was altered, lethargic so family called 911. Patient's sister reports that the patient missed hemodialysis yesterday. Her last hemodialysis was on last . Patient had been gradually recovering after a stroke in May 2024 and a craniotomy for a left hemisphere mass in July 2024. Following surgery, the patient was able to walk with help, respond well. Patient also has a know history of seizure disorder and has been taking Keppra 500mg. Patient has liver cirrhosis and undergoes pericentesis every Thursday. Patient underwent open-heart surgery 10 years ago, which she required catheter use and related with catheter-associated infection. Initial lab workup revealed serum creatinine 12.95, BUN 85, anion gap 16, BNP 656, troponin I within normal limit, calcium 5.4, alkaline phosphatase 145, ammonia 15. Chest X-ray -Median sternotomy changes. Enlarged cardiomediastinal silhouette. Central vascular redistribution and interstitial prominence. CT head without contrast- No acute intracranial hemorrhage identified. Left frontotemporal encephalomalacia with adjacent craniotomy changes in the same area. Hyperdensity within the V4 segment of the right vertebral artery. Patient unable to obtain urine sample at this point due to ESRD and not producing urine. CTA head and neck with intravenous contrast was ordered. 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, brain tumor, anxiety, Left hemisphere mass lesion status post craniotomy in 07/2024 Past Surgical History Bilateral tubal ligation, , mitral and tricuspid valve repair, Past Social History Details of the information could not be obtained due to patient's confusion, patient lives with her partner Review of Systems Details of the other system could not be obtained due to patient's altered mental status Allergies: Coded Allergies: Methylprednisolone (Verified Allergy, Unknown, 04/16/23) Patient reports: No new complaints Objective vital signs Vital Sign Date Time Temp Pulse Resp B/P (MAP) Pulse Ox O2 Delivery O2 Flow Rate FiO2 05/08/25 12:01 54 15 138/77 (97) 05/08/25 10:00 96 05/08/25 07:45 Room Air* 0 21 05/08/25 07:44 97.9 97.9 medications Current Medications Medications Dose Ordered Sig/Elidia Route Start Time Stop Time Status Last Admin Dose Admin Sodium Chloride 10 ml Q8HR IV 05/07/25 22:00 05/08/25 06:00 10 ML Levetiracetam 100 ml @ 400 mls/hr BID IV 05/07/25 22:00 05/08/25 10:35 400 MLS/HR Pantoprazole Sodium 40 mg DAILY IV 05/08/25 10:00 05/08/25 10:00 40 MG Heparin Sodium (Porcine) 5,000 units Q12HR SC 05/07/25 22:00 Aspirin 81 mg DAILY PO 05/08/25 10:00 Sildenafil Citrate 20 mg DAILY PO 05/08/25 10:00 Diagnostic Test (Pha) 1 strip Q90MIN 05/07/25 22:30 05/08/25 13:37 1 STRIP Lactulose 30 ml BID PO 05/08/25 10:00 Examination General examination- patient with confusion HEENT- PEERLA, dry mouth, no acute nasal discharge Cardiovascular- S1-S2 audible, rate and rhythm regular, no murmur Respiratory- bilateral lung crackles+ Gastrointestinal-nontender, bowel sound+. Nondistended Musculoskeletal-no acute joint swelling or tenderness or redness extremity- fistula on left arm Neurological- patient with confusion, details of the neurological examination could not be done Psychiatry- denies depression or SI or HI Skin- no acute rash or purpura laboratory and microbiology Laboratory Tests 05/08/25 07:22 Test 05/08/25 07:22 Range/Units Serum Glucose 69 L 74-106 mg/dL Microbiology Date/Time Source Procedure Growth Status 05/08/25 03:00 Nose MRSA Screen - Final Complete Problem List/Assessment/Plan Problem List/Assessment/Plan # altered level of consciousness likely due to metabolic/Toxic encephalopathy/hypoglycemia # acute recurrent hypoglycemia -serum glucose 74>64>69 -serum creatinine 12.45>8.38, BUN 85>37 -anion gap 16>15 -status post 50% -50 mL dextrose -s/p dialysis tonight at bed side -avoid dehydration and nephrotoxic drugs -continue current conservative management -continue dextrose 10% 30 mL/hour -monirtor serum glucose and mental status -pending COVID-19 and flu test -pending UDS, pending urine analysis # acute pulmonary edema # ESRD on hemodialysis # metabolic acidosis -continue hemodialysis as per schedule recommended by Nephrology -continue current conservative management -monitor ABG, anion gap, bicarbonate levels #h/o Left hemisphere mass lesion status post craniotomy in 07/2024 # seizure disorder -continue Keppra 500mg IV b.i.d -monitor for postictal state vs encephalopathy # history of CVA -history of stroke (05/2024), s/p craniotomy (07/2024) -continue aspirin 81 mg daily -monitor neuro status # history of CHF, s/p valve repair -s/p mitral and tricuspid valve repair -h/o open-heart surgery 10 years ago -chronic catheter-induced infection -avoid fluid overload -continue fluid management -follow up outpatient with manager entry # cirrhosis of liver -undergoes weekly paracentesis (Tuesdays) -continue lactulose 30mL PO b.i.d -monitor ammonia level -avoid constipation and hepatotoxic drugs # pulmonary hypertension -continue sildenafil 20mg PO daily Diet-renal diet Goals of care, Code status full code ; discussed with >15 minutes PUD prophylaxis: Pantoprazole DVT prophylaxis: Heparin Plan discussed with Dr. Cordova, nursing staff, Total time spent on patient evaluation, chart review, assessment and plan, discussion discussion >35 minutes Plan discussed with: Patient, Other (RN) Sepsis reassessment post fluid Respiratory Effort: Non-Labored Respiratory Pattern: Regular (RN) Date of Service: May 08, 2025 Billing Provider: ADRYAN CORDOVA MD Common Visit Codes: [id number] INP/OBS CARE(HIGH) ADELAIDE CALLEJAS RESIDENT May 08, 2025 13:56 ADRYAN CORDOVA MD May 11, 2025 14:22
[2025-05-08] MEDS: IOHEXOL 350 MG/ML 100ML IJ ONE (15:11)
--- NOTE | 2025-05-08 16:27 | DVH ---
INDICATION: Altered level of consciousness COMPARISON: None TECHNIQUE:CTA head and neck with intravenous contrast. 3D/MIP image postprocessing was performed and images were used for interpretation and reporting. Radiation Dose Information: CT Dose: CTDI volume is 29.58 mGy. Dose-length product is 473.36 mGy*cm FINDINGS: Noncontrast CT brain: Left frontal temporal encephalomalacia with adjacent craniotomy changes. No hemorrhages, masses, mass effect, midline shift, herniation cytotoxic edema following large vascular territory. No intra-axial extra-axial fluid collections. Evidence of hydrocephalus. Cavum septum pellucidum et vergae is note d. The basal cisterns are patent. The pituitary gland, sella and parasellar regions unremarkable. The cerebellar tonsils are normal po sition. The cerebellum is unremarkable. The orbits and globes are unremarkable. Paranasal sinuses and mastoids are clear. No worrisome calvar ial lesions. CTA neck: Normal 3-vessel origin left-sided aortic arch. Contrast within adjacent venous structure limits evalu ation of the right subclavian artery . Otherwise, the subclavian arteriesunremarkable. Motion artifact limits evaluation of bilateral mid common carotid arteries. Minimal atherosclerotic c alcification of the carotid bulb. Otherwise, Otherwise, the bilateral common carotid arteries and b ilateral cervical ICAs are unremarkable. Bilateral cervical vertebral arteries are unremarkable and codominant. CTA head: Bilateral ACAS, anterior communicating artery and bilateral MCAs are unremarkable. Minimal atheroscle rotic calcification of the bilateral cavernous with mild atherosclerotic calcification of bilateral s upraclinoid iCAs without hemodynamically significant stenosis. Otherwise, bilateral intracranial iCA s unremarkable. Mild atherosclerotic calcification of bilateral proximal intracranial vertebral arteries. Otherwise, Bilateral nurse obgyn, bilateral superior cerebellar arteries, basilar artery and bilateral intracranial ve rtebral arteries are unremarkable. The dural venous sinuses opacify normally. No abnormal intracranial enhancement. Minimal facial neck and upper chest body wall edema. IMPRESSION: Contrast within adjacent venous structures limits evaluation of the right subclavian artery motion ar tifact limiting evaluation of bilateral mid common carotid arteries. Otherwise, no hemodynamically si gnificant stenosis, aneurysm or dissection involving the major intracranial neck vessels. The hypverdensity noted on noncontrast CT head over the proximal intracranial vertebral arteries rese nts Mild atherosclerotic calcification of bilateral proximal intracranial vertebral arteries without hemodynamically significant stenosis.
[2025-05-08 19:50] VITALS: PULSE 94; RESP 16; O2SAT 98
[2025-05-08] MEDS: ERGOCALCIFEROL 50,000 UNIT(1.25MG) CAP PO SCH (22:00)
[2025-05-09] MEDS: LORazepam 2MG/ML-1ML VIAL IV ONE (02:30)
[2025-05-09 04:06] LABS: Hematocrit 38.1 % (36.0-46.0); Hemoglobin 12.7 g/dL (12.2-16.2); Mean Corpuscular Hemoglobin 29.3 pg (28.0-32.0); Mean Corpuscular Volume 88.2 fL (80.0-100.0); Nucleated Red Blood Cells % 0.2 %
[2025-05-09 04:23] LABS: Chloride 100 mmol/L (98-107); Potassium 4.1 mmol/L (3.5-5.1); Sodium 140 mmol/L (136-145)
[2025-05-09 04:24] LABS: Anion Gap 14 (5-15); Carbon Dioxide 26 mmol/L (20-31)
[2025-05-09 04:29] LABS: BUN/Creatinine Ratio 4.6 (10.0-20.0); Glucose 90 mg/dL (74-106)
[2025-05-09 04:36] LABS: Blood Urea Nitrogen 45 mg/dL (9-23); Calcium 7.0 mg/dL (8.7-10.4)
[2025-05-09] MEDS: CALCIUM ACETATE 667 MG CAP PO SCH (08:00)
[2025-05-09 08:34] VITALS: PULSE 54; RESP 17; O2SAT 95
[2025-05-09] MEDS ORDERED: SODIUM CHL 0.9% 1000 ML BAG XX ONE (11:00)
--- NOTE | 2025-05-09 11:20 | DVHPN2 ---
Progress Note Date Seen: May 09, 2025 Has the PT tested + for MRSA If YES, has PT been informed?: No Medical Necessity Reason Pt with a Central, PICC or Fol: No Subjective Patient reports: No new complaints Objective vital signs Vital Sign Date Time Temp Pulse Resp B/P (MAP) Pulse Ox O2 Delivery O2 Flow Rate FiO2 05/09/25 11:00 50 12 141/71 (94) 100 05/09/25 08:34 Nasal Cannula* 3 32 05/09/25 00:17 98.3 98.3 Total Intake and Output 05/08/25 05/08/25 05/09/25 15:00 23:00 07:00 Intake Total 340 ml 120 ml Balance 340 ml 120 ml medications Current Medications Medications Dose Ordered Sig/Elidia Route Start Time Stop Time Status Last Admin Dose Admin Sodium Chloride 10 ml Q8HR IV 05/07/25 22:00 05/09/25 06:00 10 ML Levetiracetam 100 ml @ 400 mls/hr BID IV 05/07/25 22:00 05/08/25 10:35 400 MLS/HR Pantoprazole Sodium 40 mg DAILY IV 05/08/25 10:00 05/08/25 10:00 40 MG Heparin Sodium (Porcine) 5,000 units Q12HR SC 05/07/25 22:00 Aspirin 81 mg DAILY PO 05/08/25 10:00 Sildenafil Citrate 20 mg DAILY PO 05/08/25 10:00 Diagnostic Test (Pha) 1 strip Q90MIN 05/07/25 22:30 05/09/25 10:47 1 STRIP Lactulose 30 ml BID PO 05/08/25 10:00 Calcium Acetate 1,334 mg TIDWMEALS PO 05/09/25 08:00 Ergocalciferol 50,000 unit Q7D PO 05/08/25 22:00 Examination: GENERAL:Normal, CVS:Normal, NEURO:Abnormal laboratory and microbiology Laboratory Tests 05/09/25 03:39 Test 05/09/25 03:39 Range/Units Serum Glucose 90 74-106 mg/dL Microbiology Date/Time Source Procedure Growth Status 05/08/25 03:00 Nose MRSA Screen - Final Complete Problem List/Assessment/Plan Problem List/Assessment/Plan 44 year old female brought by family due to change in mental state ESRD AMS hypertension chf HTN hyperphosphatemia HD today fluid removal as tolerated s/p CT head IV contrast renal diet and phos binder once able to tolerate po rec fulll neuro w/u Plan discussed with: Patient My Orders My Orders Orders - JESSIE ZAYAS MD Procedure Category Date Status Time Calcium Acetate PHA 05/09/25 In Process Capsule (Phoslo 08:00 Ergocalciferol PHA 05/08/25 In Process (Vitamin D 50,000 22:00 Hemodialysis Orders ORDERS 05/09/25 Transmitted 10:53 Dialysis Nursing АЛЕКСАНДР 05/09/25 In Process Message 10:53 Document Fluid Input [email or web address] 05/09/25 In Process And Outpu 10:53 Sepsis reassessment post fluid Respiratory Effort: Non-Labored Respiratory Pattern: Regular (RN) JESSIE ZAYAS MD May 09, 2025 11:20
[2025-05-09] MEDS: CEFEPIME 1GM/ 50ML 50 ML IV ONE (13:00)
[2025-05-09] MEDS ORDERED: VANCOMYCIN PER PHARMACY 0 MG IV SCH (13:00)
[2025-05-09 13:10] VITALS: BP 135/72; PULSE 52; RESP 20; TEMP 97.8; O2SAT 100
--- NOTE | 2025-05-09 13:56 | DVHPNRES ---
Progress Note Date Seen: May 09, 2025 Resident Creating Document: ADELAIDE CALLEJAS RESIDENT Has the PT tested + for MRSA If YES, has PT been informed?: No Medical Necessity Reason Pt with a Central, PICC or Fol: No Subjective Review of Systems This is 44 years-old female with PMH of ESRD, HTN, CVA, CHF, seizure, liver cirrhosis, pulmonary hypertension, mitral valve and tricuspid valve repair, 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 On Thursday last week around 9 o'clock, patient began walking abnormally and became unresponsive, was altered, lethargic so family called 911. Patient's sister reports that the patient missed hemodialysis yesterday. Her last hemodialysis was on last . Patient had been gradually recovering after a stroke in May 2024 and a craniotomy for a left hemisphere mass in July 2024. Following surgery, the patient was able to walk with help, respond well. Patient also has a know history of seizure disorder and has been taking Keppra 500mg. Patient has liver cirrhosis and undergoes pericentesis every Thursday. Patient underwent open-heart surgery 10 years ago, which she required catheter use and related with catheter-associated infection. Initial lab workup revealed serum creatinine 12.95, BUN 85, anion gap 16, BNP 656, troponin I within normal limit, calcium 5.4, alkaline phosphatase 145, ammonia 15. Chest X-ray -Median sternotomy changes. Enlarged cardiomediastinal silhouette. Central vascular redistribution and interstitial prominence. CT head without contrast- No acute intracranial hemorrhage identified. Left frontotemporal encephalomalacia with adjacent craniotomy changes in the same area. Hyperdensity within the V4 segment of the right vertebral artery. Patient unable to obtain urine sample at this point due to ESRD and not producing urine. CTA head and neck with intravenous contrast- Contrast within adjacent venous structures limits evaluation of the right subclavian artery motion artifact limiting evaluation of bilateral mid common carotid arteries. Patient received hemodialysis today without complications. Patient was seen and examined on the bedside. Patient is alert oriented x3. No new complaint. Had 1 session of dialysis today morning and 2 L ultrafiltration removed. Patient reports: No new complaints Objective vital signs Vital Sign Date Time Temp Pulse Resp B/P (MAP) Pulse Ox O2 Delivery O2 Flow Rate FiO2 05/09/25 12:00 51 05/09/25 11:00 12 141/71 (94) 100 05/09/25 08:34 Nasal Cannula* 3 32 05/09/25 00:17 98.3 98.3 Total Intake and Output 05/08/25 05/08/25 05/09/25 15:00 23:00 07:00 Intake Total 340 ml 120 ml Balance 340 ml 120 ml medications Current Medications Medications Dose Ordered Sig/Elidia Route Start Time Stop Time Status Last Admin Dose Admin Sodium Chloride 10 ml Q8HR IV 05/07/25 22:00 05/09/25 06:00 10 ML Levetiracetam 100 ml @ 400 mls/hr BID IV 05/07/25 22:00 05/08/25 10:35 400 MLS/HR Pantoprazole Sodium 40 mg DAILY IV 05/08/25 10:00 05/08/25 10:00 40 MG Heparin Sodium (Porcine) 5,000 units Q12HR SC 05/07/25 22:00 Aspirin 81 mg DAILY PO 05/08/25 10:00 Sildenafil Citrate 20 mg DAILY PO 05/08/25 10:00 Lactulose 30 ml BID PO 05/08/25 10:00 Calcium Acetate 1,334 mg TIDWMEALS PO 05/09/25 08:00 Ergocalciferol 50,000 unit Q7D PO 05/08/25 22:00 Vancomycin HCl 0 ml @ 0 mls/hr UD IV 05/09/25 13:00 Cefepime HCl 50 ml @ 12.5 mls/hr DAILY IV 05/10/25 10:00 Vancomycin HCl 250 ml @ 250 mls/hr Q1H IV 05/09/25 13:00 05/09/25 14:59 Examination General examination- patient with confusion HEENT- PEERLA, dry mouth, no acute nasal discharge Cardiovascular- S1-S2 audible, rate and rhythm regular, no murmur Respiratory- bilateral lung crackles+ Gastrointestinal-nontender, bowel sound+. Nondistended Musculoskeletal-no acute joint swelling or tenderness or redness extremity- fistula on left arm Neurological- patient with confusion, details of the neurological examination could not be done Psychiatry- denies depression or SI or HI Skin- no acute rash or purpura laboratory and microbiology Laboratory Tests 05/09/25 03:39 Test 05/09/25 03:39 Range/Units Serum Glucose 90 74-106 mg/dL Microbiology Date/Time Source Procedure Growth Status 05/08/25 03:00 Nose MRSA Screen - Final Complete Labs and/or images reviewed: Labs reviewed by me, Image(s) reviewed by me Problem List/Assessment/Plan Problem List/Assessment/Plan # Altered level of consciousness likely due to metabolic/Toxic encephalopathy/hypoglycemia # Acute recurrent hypoglycemia -serum glucose 74>64>69 -serum creatinine 12.45>8.38, BUN 85>37 -anion gap 16>15 -status post 50% -50 mL dextrose -s/p dialysis tonight at bed side -avoid dehydration and nephrotoxic drugs -continue current conservative management -continue dextrose 10% 30 mL/hour -monirtor serum glucose and mental status -pending COVID-19 and flu test -pending UDS, pending urine analysis # acute pulmonary edema # ESRD on hemodialysis # metabolic acidosis -continue hemodialysis as per schedule recommended by Nephrology -continue current conservative management -monitor ABG, anion gap, bicarbonate levels #h/o Left hemisphere mass lesion status post craniotomy in 07/2024 # seizure disorder -continue Keppra 500mg IV b.i.d -monitor for postictal state vs encephalopathy # history of CVA -history of stroke (05/2024), s/p craniotomy (07/2024) -continue aspirin 81 mg daily -monitor neuro status # history of CHF, s/p valve repair -s/p mitral and tricuspid valve repair -h/o open-heart surgery 10 years ago -chronic catheter-induced infection -avoid fluid overload -continue fluid management -follow up outpatient with firepot operator and tender # cirrhosis of liver -undergoes weekly paracentesis (Tuesdays) -continue lactulose 30mL PO b.i.d -monitor ammonia level -avoid constipation and hepatotoxic drugs # pulmonary hypertension -continue sildenafil 20mg PO daily Diet-renal diet Goals of care, Code status full code ; discussed with >15 minutes PUD prophylaxis: Pantoprazole DVT prophylaxis: Heparin Plan discussed with Dr. Cordova, nursing staff, Total time spent on patient evaluation, chart review, assessment and plan, discussion discussion >35 minutes Plan discussed with: Patient, Other (RN) Sepsis reassessment post fluid Respiratory Effort: Non-Labored Respiratory Pattern: Regular (RN) Date of Service: May 09, 2025 Billing Provider: ADRYAN CORDOVA MD Common Visit Codes: [id number] INP/OBS CARE(HIGH) ADELAIDE CALLEJAS RESIDENT May 09, 2025 13:56 EVA MARSH RESIDENT May 09, 2025 17:20 ADRYAN CORDOVA MD May 11, 2025 14:28
[2025-05-09] MEDS: VANCOMYCIN 1GM/200ML PM 250 ML IV SCH (14:00)
[2025-05-09 15:29] VITALS: BP 135/72; PULSE 52; RESP 20; TEMP 97.8; O2SAT 100
[2025-05-09 17:00] VITALS: BP 119/67; PULSE 50; RESP 20; TEMP 97.9; O2SAT 100
[2025-05-09 20:00] VITALS: PULSE 54
[2025-05-09] MEDS: diphenhdrAMINE HCL 50 MG/1 ML VL IV ONE (20:09)
[2025-05-09 21:00] VITALS: BP 131/63; PULSE 52; RESP 17; TEMP 97.5; O2SAT 99
[2025-05-10 01:00] VITALS: BP 126/47; PULSE 53; RESP 19; TEMP 98.7; O2SAT 97
[2025-05-10 05:00] VITALS: BP 146/74; PULSE 55; RESP 19; TEMP 98.2; O2SAT 93
[2025-05-10 06:42] LABS: Hematocrit 36.8 % (36.0-46.0); Hemoglobin 12.5 g/dL (12.2-16.2); Mean Corpuscular Hemoglobin 29.7 pg (28.0-32.0); Mean Corpuscular Volume 87.5 fL (80.0-100.0); Nucleated Red Blood Cells % 0.1 %
[2025-05-10 07:02] LABS: Potassium 4.2 mmol/L (3.5-5.1); Sodium 139 mmol/L (136-145)
[2025-05-10 07:03] LABS: Anion Gap 12 (5-15); Carbon Dioxide 29 mmol/L (20-31)
[2025-05-10 07:08] LABS: BUN/Creatinine Ratio 3.8 (10.0-20.0)
[2025-05-10 07:09] LABS: Blood Urea Nitrogen 26 mg/dL (9-23); Calcium 7.9 mg/dL (8.7-10.4); Chloride 98 mmol/L (98-107); Glucose 74 mg/dL (74-106)
[2025-05-10 09:00] VITALS: BP 113/63; PULSE 54; RESP 17; TEMP 97.1; O2SAT 93
[2025-05-10] MEDS: CEFEPIME 1GM/ 50ML 50 ML IV SCH (09:05)
[2025-05-10] MEDS ORDERED: KEP500T PO (11:53)
[2025-05-10] MEDS ORDERED: LACT10SO3 PO (11:53)
[2025-05-10] MEDS ORDERED: LEVO750T40 PO (11:53)
[2025-05-10 13:00] VITALS: BP 149/70; PULSE 53; RESP 17; TEMP 97.1; O2SAT 98
--- NOTE | 2025-05-10 14:52 | DVHDSRES ---
Discharge Summary Date of Admission Resident Creating Document: ADELAIDE CALLEJAS RESIDENT May 07, 2025 at 21:21 Date of Discharge: May 10, 2025 Admitting Diagnosis Altered level of consciousness Labs/Diagnostic Data: Laboratory Results Test 05/10/25 04:39 05/09/25 04:22 05/08/25 07:22 05/07/25 21:37 White Blood Count 3.8 10^3/uL (4.4-10.8) Red Blood Count 4.21 10^6/uL (4.0-5.20) Hemoglobin 12.5 g/dL (12.2-16.2) Hematocrit 36.8 % (36.0-46.0) Mean Corpuscular Volume 87.5 fL (80.0-100.0) Mean Corpuscular Hemoglobin 29.7 pg (28.0-32.0) Mean Corpuscular Hemoglobin Concent 34.0 g/dL (32.0-36.0) Red Cell Distribution Width 16.5 % (11.8-14.3) Platelet Count 122 10^3/uL (140-450) Mean Platelet Volume 9.6 fL (6.9-10.8) Neutrophils (%) (Auto) 54.0 % (37.0-80.0) Lymphocytes (%) (Auto) 28.9 % (10.0-50.0) Monocytes (%) (Auto) 13.3 % (0.0-12.0) Eosinophils (%) (Auto) 2.6 % (0.0-7.0) Basophils (%) (Auto) 1.2 % (0.0-2.0) Neutrophils # (Auto) 2.1 10 ^3/uL (1.6-8.6) Lymphocytes # (Auto) 1.1 10 ^3/uL (0.4-5.4) Monocytes # (Auto) 0.5 10 ^3/uL (0-1.3) Eosinophils # (Auto) 0.1 10 ^3/uL (0-0.8) Basophils # (Auto) 0 10 ^3/uL (0-0.2) Nucleated Red Blood Cells 0.1 % Sodium Level 139 mmol/L (136-145) Potassium Level 4.2 mmol/L (3.5-5.1) Chloride Level 98 mmol/L (98-107) Carbon Dioxide Level 29 mmol/L (20-31) Anion Gap 12 (5-15) Blood Urea Nitrogen 26 mg/dL (9-23) Creatinine 6.93 mg/dL (0.550-1.02) Glomerular Filtration Rate Calc 7 mL/min (>90) BUN/Creatinine Ratio 3.8 (10.0-20.0) Serum Glucose 74 mg/dL (74-106) Calcium Level 7.9 mg/dL (8.7-10.4) Random Vancomycin Level 37.9 ug/mL (5-10) POC Glucose 89 mg/dl (70-106) Phosphorus Level 6.2 mg/dL (2.4-5.1) Magnesium Level 2.4 mg/dL (1.6-2.6) Total Bilirubin 0.4 mg/dL (0.2-1.0) Aspartate Amino Transferase (AST) 28 U/L (13-40) Alanine Aminotransferase (ALT) 9 U/L (7-40) Alkaline Phosphatase 147 U/L (46-116) Troponin I High Sensitivity 26 ng/L (</=34) Total Protein 6.3 g/dL (5.7-8.2) Albumin 3.6 g/dL (3.2-4.8) Vitamin D 25-Hydroxy 28.9 ng/mL (30.0-100) Parathyroid Hormone (Intact) 1251.6 pg/mL (18.4-80.1) B-Type Natriuretic Peptide 656.72 pg/mL (0-100) Test 05/07/25 15:48 05/07/25 03:00 Ammonia 15 umol/L (11-32) Hepatitis A IgM Antibody Negative Hepatitis B Surface Antigen Negative (Negative) Hepatitis B Core IgM Antibody Negative (Negative) Hepatitis C Antibody Negative (Negative) Influenza Type A Antigen Negative (Negative) Influenza Type B Antigen Negative (Negative) SARS-CoV-2 Antigen (Rapid) Negative (NEGATIVE) Other Laboratory Tests 05/10/25 04:39 Brief Hx & Hospital Course: This is 44 years-old female with PMH of ESRD, HTN, CVA, CHF, seizure, liver cirrhosis, pulmonary hypertension, mitral valve and tricuspid valve repair, 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 On Thursday last week around 9 o'clock, patient began walking abnormally and became unresponsive, was altered, lethargic so family called 911. Patient's sister reports that the patient missed hemodialysis yesterday. Her last hemodialysis was on last . Patient had been gradually recovering after a stroke in May 2024 and a craniotomy for a left hemisphere mass in July 2024. Following surgery, the patient was able to walk with help, respond well. Patient also has a know history of seizure disorder and has been taking Keppra 500mg. Patient has liver cirrhosis and undergoes pericentesis every Thursday. Patient underwent open-heart surgery 10 years ago, which she required catheter use and related with catheter-associated infection. Initial lab workup revealed serum creatinine 12.95, BUN 85, anion gap 16, BNP 656, troponin I within normal limit, calcium 5.4, alkaline phosphatase 145, ammonia 15. Chest X-ray -Median sternotomy changes. Enlarged cardiomediastinal silhouette. Central vascular redistribution and interstitial prominence. CT head without contrast- No acute intracranial hemorrhage identified. Left frontotemporal encephalomalacia with adjacent craniotomy changes in the same area. Hyperdensity within the V4 segment of the right vertebral artery. Patient unable to obtain urine sample at this point due to ESRD and not producing urine. CTA head and neck with intravenous contrast- Contrast within adjacent venous structures limits evaluation of the right subclavian artery motion artifact limiting evaluation of bilateral mid common carotid arteries. Patient received hemodialysis today without complications. Patient was seen and examined on the bedside. Patient is alert oriented x3. No new complaint. Had 1 session of dialysis yesterday morning and 2 L ultrafiltration removed. Patient today can speak properly, walking around and ready to discharge. Examination General examination- patient with confusion HEENT- PEERLA, dry mouth, no acute nasal discharge Cardiovascular- S1-S2 audible, rate and rhythm regular, no murmur Respiratory- bilateral lung crackles+ Gastrointestinal-nontender, bowel sound+. Nondistended Musculoskeletal-no acute joint swelling or tenderness or redness extremity- fistula on left arm Neurological- patient with confusion, details of the neurological examination could not be done Psychiatry- denies depression or SI or HI Skin- no acute rash or purpura Operations or Procedures COMPUTERIZED TOMOGRAPHY OF THE HEAD WITHOUT CONTRAST FINDINGS: No suspicious intracranial hyperdensity to suggest acute blood. There is cavum septum pellucidum. There is moderate encephalomalacia in the left frontotemporal region. There is hyperdensity within the V4 segment of the right vertebral artery. There is no mass effect nor midline shift. There is no hydrocephalus. The suprasellar cistern is intact. There is evidence of remote left temporoparietal craniotomy. The calvarium is otherwise intact. The visualized mastoid air cells and paranasal sinuses are clear. IMPRESSION: No acute intracranial hemorrhage identified. Left frontotemporal encephalomalacia with evidence of prior craniotomy in the same area. Hyperdensity within the V4 segment of the right vertebral artery. Correlate clinically and with patient's neurosurgical history. Given the patient's young age, would consider CTA of the head. Findings were discussed by telephone with Dr. Madden at 6:57 p.mJd [place] on 05/07/2025. EXAMINATION: AP portable chest radiograph FINDINGS: Patient is rotated and leaning to the left. Shallow inspiration. Median sternotomy changes. Enlarged cardiomediastinal silhouette. Central vascular redistribution and interstitial prominence. No definite pleural effusion or pneumothorax. IMPRESSION: Limited study. CHF type pattern. Correlate to exclude atypical infection. FACTURING SOFTWARE ENGINEER TECHNIQUE:CTA head and neck with intravenous contrast. 3D/MIP image postprocessing was performed and images were used for interpretation and reporting. IMPRESSION: Contrast within adjacent venous structures limits evaluation of the right subclavian artery motion artifact limiting evaluation of bilateral mid common carotid arteries. Otherwise, no hemodynamically significant stenosis, aneurysm or dissection involving the major intracranial neck vessels. The hypverdensity noted on noncontrast CT head over the proximal intracranial vertebral arteries resents Mild atherosclerotic calcification of bilateral proximal intracranial vertebral arteries without hemodynamically significant stenosis. Condition at Discharge: Stable (RN) Final Diagnosis/Problems List # Altered level of consciousness likely due to metabolic/Toxic encephalopathy/hypoglycemia # Acute recurrent hypoglycemia # acute pulmonary edema # ESRD on hemodialysis # metabolic acidosis # h/o Left hemisphere mass lesion status post craniotomy in 07/2024 # seizure disorder # history of CVA # history of CHF, s/p valve repair # cirrhosis of liver # pulmonary hypertension Discharge Disposition: Home SNF Discharge Will this Physician continue t: No (RN) Discharge Instruct/Medications Diet: Renal Activity: Light activity Follow Up/Referral: Follow up with Nephrology Scheduled Aspirin (Aspirin Low Dose), 81 MG PO DAILY, (Reported) Calcium Acetate (Phosphate Bin (Calcium Acetate), 1,334 MG PO TIDWM, (Reported) Hydralazine Hcl (Hydralazine Hcl), 1 TAB PO DAILY, (Reported) Lactulose (Lactulose), 10 GM PO DAILY Levetiracetam (Keppra Tablet), 500 MG PO BID Levofloxacin Hemihydrate (Levofloxacin), 1 TAB PO DAILY Sildenafil Citrate (Pulmonary (Revatio), 20 MG PO DAILY Scheduled PRN Albuterol Sulfate (Ventolin Mdi), 90 MCG IN Q4HR PRN Clonidine Hcl (Lfgputqr-Vva-7 Patch), 0.1 MG TD for SBP>150, (Reported) Discontinued Medications Clindamycin Hcl (Cleocin), 300 MG PO TID Doxycycline (Monohydrate) (Doxycycline), 100 MG PO BID Hydrocodone-Acetaminophen (Hydrocodone Bitartrate/AC 5-325 mg), 1 TAB PO BIDPRN PRN for PAIN, (Reported) Lorazepam (Ativan Tablet), 1 TAB PO DAILY Midodrine Hcl (Midodrine Hcl), 10 MG PO BID Discharge Statement: "Patient was advised to return to the ER or call 911 if any headaches, dizziness, shortness of breath, chest pain, abdominal pain, bleeding, fevers, or worsening of medical condition. Patient was counseled about treatment plan, medications, possible side effects, patientverbalized understanding. All questions were answered to the best of my ability. This discharge took greater then 30 minutes in planning, reviewing documentation, counseling the patient, and discussing with other team members." ASSESSMENT ASSESSMENT Assessment Altered mental status Date of Service: May 10, 2025 Billing Provider: GUSTAVO CASTANEDA MD Common Visit Codes: 86876-AWW/OBS DISCH DAY >30min ADELAIDE CALLEJAS RESIDENT May 10, 2025 14:52 GUSTAVO CASTANEDA MD May 10, 2025 17:09
--- NOTE | 2025-05-10 15:28 | DVHPN2 ---
Progress Note Date Seen: May 10, 2025 Has the PT tested + for MRSA If YES, has PT been informed?: No Medical Necessity Reason Pt with a Central, PICC or Fol: No Subjective Changes from previous H/P or p: No Changes Objective vital signs Vital Sign Date Time Temp Pulse Resp B/P (MAP) Pulse Ox O2 Delivery O2 Flow Rate FiO2 05/10/25 13:00 97.1 53 17 149/70 (96) 98 97.1 05/10/25 08:00 Room Air* 0 N/A Nasal Cannula* Total Intake and Output 05/09/25 05/09/25 05/10/25 15:00 23:00 07:00 Intake Total 250 ml 500 ml 1210 ml Balance 250 ml 500 ml 1210 ml medications Current Medications Medications Dose Ordered Sig/Elidia Route Start Time Stop Time Status Last Admin Dose Admin Sodium Chloride 10 ml Q8HR IV 05/07/25 22:00 05/10/25 06:39 10 ML Levetiracetam 100 ml @ 400 mls/hr BID IV 05/07/25 22:00 05/10/25 09:05 400 MLS/HR Pantoprazole Sodium 40 mg DAILY IV 05/08/25 10:00 05/10/25 09:04 40 MG Heparin Sodium (Porcine) 5,000 units Q12HR SC 05/07/25 22:00 05/09/25 21:53 5,000 UNITS Aspirin 81 mg DAILY PO 05/08/25 10:00 Sildenafil Citrate 20 mg DAILY PO 05/08/25 10:00 05/10/25 09:05 20 MG Lactulose 30 ml BID PO 05/08/25 10:00 05/10/25 09:04 30 ML Calcium Acetate 1,334 mg TIDWMEALS PO 05/09/25 08:00 05/10/25 11:26 1,334 MG Ergocalciferol 50,000 unit Q7D PO 05/08/25 22:00 Vancomycin HCl 0 ml @ 0 mls/hr UD IV 05/09/25 13:00 Cefepime HCl 50 ml @ 12.5 mls/hr DAILY IV 05/10/25 10:00 05/10/25 09:05 12.5 MLS/HR Examination: GENERAL:Normal, CVS:Normal laboratory and microbiology Laboratory Tests 05/10/25 04:39 Test 05/10/25 04:39 Range/Units Serum Glucose 74 74-106 mg/dL Microbiology Date/Time Source Procedure Growth Status 05/08/25 03:00 Nose MRSA Screen - Final Complete Problem List/Assessment/Plan Problem List/Assessment/Plan 44 year old female brought by family due to change in mental state ESRD AMS hypertension chf HTN hyperphosphatemia HD tomorrow if remains admitted fluid removal as tolerated s/p CT head IV contrast renal diet and phos binder once able to tolerate po Plan discussed with: Patient Total Time (mins): 33 Sepsis reassessment post fluid Respiratory Effort: Non-Labored Respiratory Pattern: Regular (RN) JESSIE ZAYAS MD May 10, 2025 15:28
== END 2025-05-10 15:46 | disposition home or self-care (01) | DRG 640 ==
LOC: EDUNIT# 15:31 → ER 15:31 → EDBD 15:31 → OVERFLOW 21:21 → TELE-WESTW 05-09 13:08
PROVIDERS: ADMIT Student in an Organized Health Care Education/Training Program; ATTEND Student in an Organized Health Care Education/Training Program
PROC: 5A1D70Z Performance of Urinary Filtration, Intermittent, Less than 6 Hours Per Day (ICD-10-PCS; principal; 2025-05-07)
PROC: 5A1D70Z Performance of Urinary Filtration, Intermittent, Less than 6 Hours Per Day (ICD-10-PCS; 2025-05-08)
DX: E16.2 Hypoglycemia, unspecified (principal); G92.8 Other toxic encephalopathy; J81.0 Acute pulmonary edema; N18.6 End stage renal disease; E87.20 Acidosis, unspecified; I13.2 Hypertensive heart and chronic kidney disease with heart failure and with stage 5 chronic kidney disease, or end stage renal disease; G40.909 Epilepsy, unspecified, not intractable, without status epilepticus; I27.20 Pulmonary hypertension, unspecified; I50.9 Heart failure, unspecified; K74.60 Unspecified cirrhosis of liver; Z20.822 Contact with and (suspected) exposure to COVID-19; E83.39 Other disorders of phosphorus metabolism; F41.9 Anxiety disorder, unspecified; Z88.8 Allergy status to other drugs, medicaments and biological substances; Z79.82 Long term (current) use of aspirin; Z86.73 Personal history of transient ischemic attack (TIA), and cerebral infarction without residual deficits; Z98.891 History of uterine scar from previous surgery; Z98.51 Tubal ligation status; Z99.2 Dependence on renal dialysis; Z80.3 Family history of malignant neoplasm of breast; Z79.899 Other long term (current) drug therapy
CPT/HCPCS: 36415; 70450; 70496; 70498; 71045; 80048; 80053; 80074; 80202; 82140; 82306; 82962; 83735; 83880; 83970; 84100; 84484; 85025; 87081; 87426; 87804; 90935; 96365; 96375; G0378; J2470